=== PATIENT | male | born 1955 | race Caucasian/White ===

== ENCOUNTER 2017-10-15 13:50 | Observation (INO) | payer MEDICARE, SELFPAY | END 2017-10-16 13:35 | PROVIDERS: Admitting Provider Emergency Medicine; Emergency Provider Emergency Medicine; Family Provider Emergency Medicine; Visit Provider Emergency Medicine | DX: N39.0 Urinary tract infection, site not specified (principal); S01.412A Laceration without foreign body of left cheek and temporomandibular area, initial encounter; W05.0XXA Fall from non-moving wheelchair, initial encounter; Y92.129 Unspecified place in nursing home as the place of occurrence of the external cause; I10 Essential (primary) hypertension; G82.20 Paraplegia, unspecified; L89.159 Pressure ulcer of sacral region, unspecified stage | CPT/HCPCS: 12011; 36415; 70450; 74175; 80053; 81001; 82550; 82553; 82565; 83605; 84484; 84520; 85025; 87040; 87086; 87088; 87186; 93005; 94760; 96365; 96367; 99285; G0378; J1956; Q9967 ==

== ENCOUNTER → 2018-01-02 19:36 | Outpatient (REF) | payer MEDICARE, SELFPAY ==
[2018-01-02 19:45] LABS: Microscopic, Urine URINE MICROSCOPIC (MICROSCOPIC)
[2018-01-02 20:09] LABS: Appearance,Urine CLOUDY (Clear); Bilirubin,Urine Negative (Negative); Blood, Urine 3+ (Negative); Color,Urine YELLOW (Yellow); Glucose,Urine (UA) Negative (Negative); Ketones,Urine Negative (Negative); Leukocyte Esterase,Urine TRACE (Negative); Nitrate,Urine POSITIVE (Negative); PH,Urine 5.5 (5.0-8.5); Protein,Urine 3+ (Negative); Specific Gravity, Urine >= 1.030 (1.005-1.030)
[2018-01-02 20:14] LABS: RBC,Urine 50-100 #/hpf (0-3); WBC,Urine 20-50 #/hpf (0-3)
== END ==
LOC: LAB 19:36
PROVIDERS: Visit Provider Emergency Medicine
DX: R35.0 Frequency of micturition (principal)
CPT/HCPCS: 81001; 87086

== ENCOUNTER → 2018-02-04 12:16 | Outpatient (REF) | payer MEDICARE, SELFPAY | LOC: LAB 12:16 | PROVIDERS: Visit Provider Emergency Medicine | DX: L89.159 Pressure ulcer of sacral region, unspecified stage (principal) | CPT/HCPCS: 87070; 87077; 87186; 87205 ==

== ENCOUNTER 2019-08-07 18:54 | Observation (INO) ==
[2019-08-07 20:14] LABS: Basophils # 0.1 K/mm3 (0-0.2); Basophils % 1.2 % (0.1-2.0); Eosinophils # 0.3 K/mm3 (0.0-0.4); Eosinophils % 3.7 % (0.1-12.0); Hematocrit 41.6 % (42.0-52.0); Hemoglobin 12.6 g/dL (14.1-18.0); Lymphocytes # 2.2 K/mm3 (0.7-4.5); Lymphocytes % 23.1 % (10-50); Mean Corpuscular HGB Conc 30.4 g/dL (31.8-35.4); Mean Corpuscular Volume 83.4 fl (80-94); Mean Platelet Volume 6.6 fl (7.4-10.4); Monocytes # 0.8 K/mm3 (0.1-1.0); Monocytes % 8.1 % (1.7-9.3); Neutrophils # 5.9 K/mm3 (1.8-7.8); Neutrophils % 63.9 % (37.0-80.0); Platelet Count 419 K/mm3 (142-424); Red Blood Count 4.99 M/mm3 (4.60-6.20); Red Cell Distribution Width 15.9 % (11.5-17.5); White Blood Count 9.3 K/mm3 (4.8-10.8)
[2019-08-07 20:24] LABS: Albumin Level 2.8 gm/dL (3.4-5.0); Albumin/Globulin Ratio 0.7 (1.1-1.8); Anion Gap 10.8 mEq/L (5-15); Bilirubin,Total 0.4 mg/dL (0.2-1.0); C-Reactive Protein 0.9 mg/dL (0.0-0.9); Calcium 8.3 mg/dL (8.5-10.1); Globulin 4.1 gm/dl (1.3-3.2); Total Protein,Serum 6.9 gm/dL (6.4-8.2)
[2019-08-07 20:41] LABS: Erythrocyte Sedimentation Rate 24 mm/hr (0-20)
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
[2019-08-08 06:59] LABS: Basophils # 0.1 K/mm3 (0-0.2); Basophils % 1.2 % (0.1-2.0); Eosinophils # 0.4 K/mm3 (0.0-0.4); Eosinophils % 4.5 % (0.1-12.0); Hematocrit 40.5 % (42.0-52.0); Hemoglobin 12.1 g/dL (14.1-18.0); Lymphocytes # 2.1 K/mm3 (0.7-4.5); Lymphocytes % 26.8 % (10-50); Mean Corpuscular HGB Conc 29.8 g/dL (31.8-35.4); Mean Corpuscular Volume 84.2 fl (80-94); Mean Platelet Volume 6.5 fl (7.4-10.4); Monocytes # 0.8 K/mm3 (0.1-1.0); Monocytes % 9.8 % (1.7-9.3); Neutrophils # 4.5 K/mm3 (1.8-7.8); Neutrophils % 57.7 % (37.0-80.0); Platelet Count 376 K/mm3 (142-424); Red Blood Count 4.81 M/mm3 (4.60-6.20); White Blood Count 7.9 K/mm3 (4.8-10.8)
[2019-08-08 07:04] LABS: Calcium 8.3 mg/dL (8.5-10.1)
--- NOTE | 2019-08-08 07:36 | Pharmacy Consult Notes ---
[facility] Pharmacy VTE Monitoring - Patient Demographics Admission date: 08/07/19 Report Date: 08/08/19 Time: 07:36 Allergies/Adverse Reactions: Patient Allergies hydroxyzine Allergy (Verified 08/07/19 23:43) nylon Allergy (Verified 08/07/19 23:43) Height: 1.85 m Weight: 88.3 kg Patient Problems: Current Active Problems E coli bacteremia (Acute) - VTE Risk Labs: VTE Related Lab Results Hgb 12.1 g/dL (14.1-18.0) L 08/08/19 06:00 Hct 40.5 % (42.0-52.0) L 08/08/19 06:00 Plt Count 376 K/mm3 (142-424) 08/08/19 06:00 BUN 10 mg/dL (7-18) 08/08/19 06:00 Creatinine 0.64 mg/dL (0.70-1.30) L 08/08/19 06:00 Estimated Creat Clear 96 mL/min (50-200) 08/08/19 06:00 Was VTE Risk Assessment Performed: Yes VTE Score: 6 VTE Risk Level: Moderate Risk - Prophylaxis VTE Prophylaxis Ordered?: Yes Types of VTE Prophylaxis: TEDS Knee High Location of Applied Device: Bilateral Lower Extremeties - VTE Diagnosis Confirmed Treatment or plan recommended: Continue Current Treatment
--- NOTE | 2019-08-08 10:27 | History & Physical Report ---
*Admission Date: 08/07/19 *Chief complaint: positive blood culture *History of present illness: this wm from [facility] had ed eval for possible sepsis - pt has hx of pschy issues and recent eval [facility] - pt with eval in the ed and had positive ecoli blood culture - - hx of uti [facility] History I have reviewed the patient's past medical history: Yes Medical History: Reports:: Aneurysm (AAA), Dementia, Depression, Heart Murmur, Hyperlipidemia, Hypertension Denies:: Cancer, Diabetes Mellitus Type 1, Diabetes Mellitus Type 2 *Have you ever received a pneumonia vaccine?: Yes (07-16-17) *Have you received a flu vaccine this season?: Yes (08/04/19) Other Medical History: Reports: Anemia, Arthritis Laterality Cases: Left: Other Other Surgeries: Yes: Colonoscopy (9 years ago), Other (tracheostomy, pinning of left femur and foot) Amputation: No Fractures: No - *Social History Smoking Status: Unknown if ever smoked Alcohol Intake: never Substance Use Type: denies use *Occupational Status:: disabled Housing: shelter *Travel in the last 8 weeks: None - Psychiatric History Pschychiatric History:: Reports:: Depression Family Hx:: Unable to obtain Review of Systems - Review of Systems Review of systems:: pertinent systems reviewed and negative unless documented below - Constitutional Denies chills, Denies fever(s) - Eyes Denies change in vision - ENT Denies sore throat - *Cardiovascular Denies chest pain at rest - *Respiratory Denies cough - *Gastrointestinal Denies abdominal pain - *Genitourinary Denies blood in urine - *Musculoskeletal Denies joint pain - Integumentary/Breasts Denies rash - *Neurologic Denies seizure-like activity - Psychiatric Reports behavioral changes Meds Home Medications Medication Instructions Recorded Confirmed Type Atorvastatin Calcium [Atorvastatin 20 mg PO HS 04/05/18 08/08/19 History 20mg Tab] Carbidopa/Levodopa [Sinemet 25-100 1 each PO TID 04/05/18 08/07/19 History mg Tablet] Pantoprazole Sodium [Protonix 40mg 40 mg PO DAILY 09/03/18 08/07/19 History tablet] Polyethylene Glycol 3350 [Miralax 17 gm PO DAILY 09/03/18 08/07/19 History 17gm Packet] Tamsulosin HCl [Flomax 0.4mg 0.4 mg PO HS 09/03/18 08/07/19 History capsule] Haloperidol [Haldol 5mg tablet] 10 mg PO TID 03/02/19 08/07/19 History Benztropine Mesylate [Cogentin 1mg 1.5 mg PO BID 05/21/19 08/08/19 History tablet] LORazepam [Ativan 0.5mg 0.5 mg PO BID 05/21/19 08/07/19 History tablet] Lactulose [Lactulose 20gm/30ml 20 gm PO DAILY 05/21/19 08/07/19 History Oral Soln] Oxycodone HCl [Oxycodone (IR) 5mg 5 mg PO QID 05/21/19 08/07/19 History Cap] Bisacodyl [Correctol] 10 mg PO BID 08/04/19 08/07/19 History OXcarbazepine [Trileptal 300mg 600 mg PO BID 08/07/19 08/07/19 History tablet] Ascorbic Acid [Vitamin C 500mg 500 mg PO DAILY 08/08/19 08/08/19 History tablet] Cyclobenzaprine HCl 5 mg PO TID 08/08/19 08/08/19 History [Cyclobenzaprine 5mg Tab] Ergocalciferol (Vitamin D2) 50,000 unit PO FR 08/08/19 08/08/19 History [Vitamin D2] M-Vit,Tx,Iron,Mins/Calc/Folic 1 each PO DAILY 08/08/19 08/08/19 History [Therapeutic M Tablet] OLANZapine [Olanzapine] 5 mg PO DAILY 08/08/19 08/08/19 History Potassium Chloride [Micro-K 10mEq 20 meq PO TID 08/08/19 08/08/19 History cap] Simethicone [Gas-X] 125 mg PO BID 08/08/19 08/08/19 History Zinc Sulfate [Zinc Sulfate 220mg 220 mg PO DAILY 08/08/19 08/08/19 History capsule] fentaNYL [fentaNYL 75mcg Patch] 75 mcg TD Q72H 08/08/19 08/08/19 History levETIRAcetam [Keppra] 500 mg PO BID 08/08/19 08/08/19 History Allergies Allergy/AdvReac Type Severity Reaction Status Date / Time hydroxyzine Allergy Verified 08/07/19 23:43 nylon Allergy Verified 08/07/19 23:43 Exam Vital signs and Labs for Last 24 Hours: Temp Pulse Resp BP Pulse Ox 98.0 F 110 H 20 120/78 96 08/08/19 10:02 08/08/19 10:02 08/08/19 10:02 08/08/19 10:02 08/08/19 10:02 Laboratory Results - last 24 hr 08/07/19 19:30: WBC 9.3, RBC 4.99, Hgb 12.6 L, Hct 41.6 L, MCV 83.4, MCH 25.4 L, MCHC 30.4 L, RDW 15.9, Plt Count 419, MPV 6.6 L, Neut % (Auto) 63.9, Lymph % (Auto) 23.1, [place] % (Auto) 8.1, Eos % (Auto) 3.7, Baso % (Auto) 1.2, Neut # (Auto) 5.9, Lymph # (Auto) 2.2, [place] # (Auto) 0.8, Eos # (Auto) 0.3, Baso # (Auto) 0.1, ESR 24 H 08/07/19 19:30: Sodium 138, Potassium 3.8, Chloride 104, Carbon Dioxide 27, Anion Gap 10.8, BUN 11 D, Creatinine 0.66 L D, Estimated Creat Clear 108, Estimated GFR 122, Est GFR ( Amer) 148 D, Glucose 162 H, Calcium 8.3 L, Total Bilirubin 0.4, AST 13 L, ALT 7 L D, Alkaline Phosphatase 128 H, C-Reactive Protein 0.9 D, Total Protein 6.9, Albumin 2.8 L, Globulin 4.1 H, Albumin/Globulin Ratio 0.7 L 08/07/19 19:30: Lactate 1.4 08/08/19 02:30: POC Glucose 82 08/08/19 06:00: WBC 7.9, RBC 4.81, Hgb 12.1 L, Hct 40.5 L, MCV 84.2, MCH 25.1 L, MCHC 29.8 L, RDW 16.0, Plt Count 376, MPV 6.5 L, Neut % (Auto) 57.7, Lymph % (Auto) 26.8, [place] % (Auto) 9.8 H, Eos % (Auto) 4.5, Baso % (Auto) 1.2, Neut # (Auto) 4.5, Lymph # (Auto) 2.1, [place] # (Auto) 0.8, Eos # (Auto) 0.4, Baso # (Auto) 0.1 08/08/19 06:00: Sodium 142, Potassium 4.0, Chloride 107, Carbon Dioxide 27, Anion Gap 12.0, BUN 10, Creatinine 0.64 L, Estimated Creat Clear 96, Estimated GFR 127, Est GFR ( Amer) 153, Glucose 79 D, Calcium 8.3 L, Magnesium 2.1 I & O for Last 24 hours: Intake & Output 08/05/19 08/06/19 08/07/19 08/08/19 11:59 11:59 11:59 11:59 Intake Total 430 / 430 Balance 430 / 430 Weight 194 lb 10.691 oz - Constitutional no acute distress - *Routine HEENT Exam Head: Present: normocephalic Eye: Present: EOMI, PERRL ENT: Absent: mucous membranes dry - *Routine Neck Exam Present: supple - *Routine Respiratory Exam Present: CTA bilaterally - *Routine Cardiovascular Exam Present: RRR, murmur. Absent: rubs - *Routine Abdominal Exam Present: soft - *Routine Extremities Exam Present: full ROM - *Routine Skin Exam Present: intact - *Routine Neurological Exam Present: alert, oriented X3, CN II-XII intact - Routine Psychiatric Exam Present: agitated. Absent: good insight, good judgment Assessment and Plan (1) E coli bacteremia Current visit: Yes Status: Acute Category: Medical Code(s): R78.81 - Bacteremia (2) Parkinson disease Current visit: Yes Status: Acute Category: Medical Code(s): G20 - Parkinson's disease (3) Acute psychosis Current visit: No Status: Acute Category: Medical Code(s): F23 - Brief psychotic disorder
[2019-08-09 08:54] LABS: Basophils # 0.1 K/mm3 (0-0.2); Basophils % 1.7 % (0.1-2.0); Eosinophils # 0.4 K/mm3 (0.0-0.4); Eosinophils % 5.7 % (0.1-12.0); Hematocrit 44.9 % (42.0-52.0); Hemoglobin 13.6 g/dL (14.1-18.0); Lymphocytes # 1.8 K/mm3 (0.7-4.5); Lymphocytes % 24.6 % (10-50); Mean Corpuscular HGB Conc 30.2 g/dL (31.8-35.4); Mean Corpuscular Volume 85.1 fl (80-94); Monocytes # 0.4 K/mm3 (0.1-1.0); Monocytes % 6.1 % (1.7-9.3); Neutrophils # 4.4 K/mm3 (1.8-7.8); Neutrophils % 61.8 % (37.0-80.0); Platelet Count 375 K/mm3 (142-424); Red Blood Count 5.27 M/mm3 (4.60-6.20); White Blood Count 7.1 K/mm3 (4.8-10.8)
--- NOTE | 2019-08-09 09:08 | Progress Note ---
Internal Medicine - PN: Subj *Date: 08/09/19 *Time: 09:08 Interval history: 64-year-old male patient resting quietly in bed, denies any pain or needs at this time. Staff at bedside Exam Vital signs and Labs for Last 24 Hours: Temp Pulse Resp BP Pulse Ox 98.0 F 98 H 20 144/90 H 96 08/09/19 08:51 08/09/19 08:51 08/09/19 08:51 08/09/19 08:51 08/09/19 08:51 I & O for Last 24 hours: Intake & Output 08/06/19 08/07/19 08/08/19 08/09/19 23:59 23:59 23:59 23:59 Intake Total 100 / 100 1089 / 1089 993 / 993 Balance 100 / 100 1089 / 1089 993 / 993 Weight 192 lb 3 oz 194 lb 10.691 oz 194 lb 5 oz - Constitutional no acute distress - *Routine HEENT Exam Head: Present: normocephalic, atraumatic Eye: Present: EOMI, PERRL, normal accommodation. Absent: periorbital swelling, periorbital tenderness ENT: Present: mucous membranes moist - *Routine Neck Exam Present: supple, full ROM, trachea midline. Absent: tracheal deviation - *Routine Respiratory Exam Present: CTA bilaterally. Absent: accessory muscle use - *Routine Cardiovascular Exam Present: murmur - *Routine Abdominal Exam Present: soft, normoactive bowel sounds. Absent: tenderness, firm - *Routine Extremities Exam Present: pulses intact. Absent: tenderness - Routine Back/Spine/Pelvis Exam Back/Spine: Present: full ROM. Absent: CVA tenderness - *Routine Skin Exam Present: intact. Absent: cyanosis, jaundice - *Routine Neurological Exam Present: alert, CN II-XII intact. Absent: pronator drift - Routine Psychiatric Exam Present: normal affect. Absent: visual hallucinations Assessment and Plan (1) E coli bacteremia Current visit: Yes Status: Acute Category: Medical Code(s): R78.81 - Bacteremia (2) Parkinson disease Current visit: Yes Status: Acute Category: Medical Code(s): G20 - Parkinson's disease (3) Acute psychosis Current visit: No Status: Acute Category: Medical Code(s): F23 - Brief psychotic disorder - Assessment and plan all Dx Assessment and Plan for all problems:: Rounded with Dr. Hua, all orders per Dr. Hua 1. Awaiting blood cultures 2. We will consult urology for sterile urine specimen 3. Draw End Hand currently working on placement for discharge planning
[2019-08-09 09:19] LABS: Anion Gap 10.6 mEq/L (5-15); Calcium 8.4 mg/dL (8.5-10.1)
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
--- NOTE | 2019-08-09 18:55 | Consult Report ---
*Admission Date: 08/07/19 *Reason for consult:: Catheter placement *History of present illness: I last saw this patient in follow-up of catheter removal on April 05 of this year. He had prolonged catheter placement at the senior care. Further history was not available. At follow-up he was voiding well. He seemed to be continent and overall doing quite well. He had had some visitation with his sister outside of the [facility] nursing facility. He had no urinary sections. He presented here with increased mental status changes. He apparently had positive cultures. They have been unable to place a catheter. Apparently they attempted an in and out catheterization in the emergency room. Patient has been quite combative. He actually is in restraints at this time. I was consulted for catheter placement. Apparently he has been producing urine in his depends. Creatinine upon presentation was normal. The penis was prepped and draped in standard manner. I first attempted to pass an 18 [place] coud catheter which met resistance at his proximal pendulous urethra. I then attempted a 16 [place] straight catheter without success and after moderate pressure aborted that. I then was easily able to pass a 0.035 zip wire which felt to go into the bladder with minimal resistance. I then fashioned a 16 [place] catheter which would not pass into the bladder. I was able to use a 12 [place] catheter to dilate slightly he has first area of resistance. He seemed to have a secondary resistance about 2 cm proximal to this level. I then used an 1113 ureteral access sheath to the very cautiously passed over the wire. This would not seem to easily make the band into the bladder and therefore this was aborted. I then again attempted the 12 [place] catheter which would not go into the bladder and I elected to abort further instrumentation. If he requires catheterization and then he will need to undergo general anesthesia with probable incision of urethral stricture or dilation under anesth esia. Review of Systems - *Neurologic Reports behavioral changes, Denies seizure-like activity [facility] History Medical History: Reports:: Aneurysm (AAA), Dementia, Depression, Heart Murmur, Hyperlipidemia, Hypertension Denies:: Cancer, Diabetes Mellitus Type 1, Diabetes Mellitus Type 2 *Have you ever received a pneumonia vaccine?: Yes (07-16-17) *Have you received a flu vaccine this season?: Yes (08/04/19) Other Medical History: Reports: Anemia, Arthritis Laterality Cases: Left: Other Other Surgeries: Yes: Colonoscopy (9 years ago), Other (tracheostomy, pinning of left femur and foot) Amputation: No Fractures: No - *Social History Smoking Status: Unknown if ever smoked Alcohol Intake: never Substance Use Type: denies use *Occupational Status:: disabled Housing: senior care *Travel in the last 8 weeks: None - Psychiatric History Pschychiatric History:: Reports:: Depression Family Hx:: Unable to obtain Meds Home Medications Medication Instructions Recorded Confirmed Type Atorvastatin Calcium [Atorvastatin 20 mg PO HS 04/05/18 08/08/19 History 20mg Tab] Carbidopa/Levodopa [Sinemet 25-100 1 each PO TID 04/05/18 08/07/19 History mg Tablet] Pantoprazole Sodium [Protonix 40mg 40 mg PO DAILY 09/03/18 08/07/19 History tablet] Polyethylene Glycol 3350 [Miralax 17 gm PO DAILY 09/03/18 08/07/19 History 17gm Packet] Tamsulosin HCl [Flomax 0.4mg 0.4 mg PO HS 09/03/18 08/07/19 History capsule] Haloperidol [Haldol 5mg tablet] 10 mg PO TID 03/02/19 08/07/19 History Benztropine Mesylate [Cogentin 1mg 1.5 mg PO BID 05/21/19 08/08/19 History tablet] LORazepam [Ativan 0.5mg 0.5 mg PO BID 05/21/19 08/07/19 History tablet] Lactulose [Lactulose 20gm/30ml 20 gm PO DAILY 05/21/19 08/07/19 History Oral Soln] Oxycodone HCl [Oxycodone (IR) 5mg 5 mg PO QID 05/21/19 08/07/19 History Cap] Bisacodyl [Correctol] 10 mg PO BID 08/04/19 08/07/19 History OXcarbazepine [Trileptal 300mg 600 mg PO BID 08/07/19 08/07/19 History tablet] Ascorbic Acid [Vitamin C 500mg 500 mg PO DAILY 08/08/19 08/08/19 History tablet] Cyclobenzaprine HCl 5 mg PO TID 08/08/19 08/08/19 History [Cyclobenzaprine 5mg Tab] Ergocalciferol (Vitamin D2) 50,000 unit PO FR 08/08/19 08/08/19 History [Vitamin D2] M-Vit,Tx,Iron,Mins/Calc/Folic 1 each PO DAILY 08/08/19 08/08/19 History [Therapeutic M Tablet] OLANZapine [Olanzapine] 5 mg PO DAILY 08/08/19 08/08/19 History Potassium Chloride [Micro-K 10mEq 20 meq PO TID 08/08/19 08/08/19 History cap] Simethicone [Gas-X] 125 mg PO BID 08/08/19 08/08/19 History Zinc Sulfate [Zinc Sulfate 220mg 220 mg PO DAILY 08/08/19 08/08/19 History capsule] fentaNYL [fentaNYL 75mcg Patch] 75 mcg TD Q72H 08/08/19 08/08/19 History levETIRAcetam [Keppra] 500 mg PO BID 08/08/19 08/08/19 History Allergies Allergy/AdvReac Type Severity Reaction Status Date / Time hydroxyzine Allergy Verified 08/07/19 23:43 nylon Allergy Verified 08/07/19 23:43 Exam Vital signs and Labs for Last 24 Hours: Temp Pulse Resp BP Pulse Ox 98.0 F 121 H 20 128/96 H 96 08/09/19 16:00 08/09/19 16:00 08/09/19 16:00 08/09/19 16:00 08/09/19 16:00 Laboratory Results - last 24 hr 08/09/19 08:45: WBC 7.1, RBC 5.27, Hgb 13.6 L, Hct 44.9, MCV 85.1, MCH 25.7 L, MCHC 30.2 L, RDW 16.0, Plt Count 375, MPV 7.0 L, Neut % (Auto) 61.8, Lymph % (Auto) 24.6, [place] % (Auto) 6.1, Eos % (Auto) 5.7, Baso % (Auto) 1.7, Neut # (Auto) 4.4, Lymph # (Auto) 1.8, [place] # (Auto) 0.4, Eos # (Auto) 0.4, Baso # (Auto) 0.1 08/09/19 08:45: Sodium 142, Potassium 3.6, Chloride 105, Carbon Dioxide 30, A nion Gap 10.6, BUN 6 L D, Creatinine 0.74, Estimated Creat Clear 95, Estimated GFR 107, Est GFR ( Amer) 130, Glucose 130 H, Calcium 8.4 L I & O for Last 24 hours: Intake & Output 08/06/19 08/07/19 08/08/19 08/09/19 23:59 23:59 23:59 23:59 Intake Total 100 / 100 1089 / 1089 1353 / 1353 Balance 100 / 100 1089 / 1089 1353 / 1353 Weight 87.175 kg 88.3 kg 88.139 kg Results - Labs 08/09/19 08:45 08/09/19 08:45 Laboratory Results - last 24 hr 08/09/19 08:45: WBC 7.1, RBC 5.27, Hgb 13.6 L, Hct 44.9, MCV 85.1, MCH 25.7 L, MCHC 30.2 L, RDW 16.0, Plt Count 375, MPV 7.0 L, Neut % (Auto) 61.8, Lymph % (Auto) 24.6, [place] % (Auto) 6.1, Eos % (Auto) 5.7, Baso % (Auto) 1.7, Neut # (Auto) 4.4, Lymph # (Auto) 1.8, [place] # (Auto) 0.4, Eos # (Auto) 0.4, Baso # (Auto) 0.1 08/09/19 08:45: Sodium 142, Potassium 3.6, Chloride 105, Carbon Dioxide 30, Anion Gap 10.6, BUN 6 L D, Creatinine 0.74, Estimated Creat Clear 95, Estimated GFR 107, Est GFR ( Amer) 130, Glucose 130 H, Calcium 8.4 L Assessment and Plan (1) E coli bacteremia Current visit: Yes Status: Acute Category: Medical Code(s): R78.81 - Bacteremia (2) Parkinson disease Current visit: Yes Status: Acute Category: Medical Code(s): G20 - Parkinson's disease (3) Acute psychosis Current visit: No Status: Acute Category: Medical Code(s): F23 - Brief psy chotic disorder
[2019-08-10 07:29] LABS: Anion Gap 8.6 mEq/L (5-15); Calcium 8.3 mg/dL (8.5-10.1)
[2019-08-10 07:57] LABS: Basophils # 0.1 K/mm3 (0-0.2); Basophils % 1.3 % (0.1-2.0); Eosinophils # 0.4 K/mm3 (0.0-0.4); Hematocrit 56.7 % (42.0-52.0); Lymphocytes # 2.6 K/mm3 (0.7-4.5); Lymphocytes % 29.9 % (10-50); Mean Corpuscular HGB Conc 29.9 g/dL (31.8-35.4); Mean Corpuscular Volume 85.2 fl (80-94); Monocytes # 0.9 K/mm3 (0.1-1.0); Monocytes % 9.8 % (1.7-9.3); Neutrophils # 4.7 K/mm3 (1.8-7.8); Platelet Count 197 K/mm3 (142-424); Red Blood Count 6.66 M/mm3 (4.60-6.20); Red Cell Distribution Width 16.1 % (11.5-17.5); White Blood Count 8.7 K/mm3 (4.8-10.8)
[2019-08-10 12:30] LABS: Hemoglobin 16.9 g/dL (14.1-18.0)
--- NOTE | 2019-08-10 14:17 | Progress Note ---
Internal Medicine - PN: Subj *Date: 08/11/19 *Time: 10:05 Interval history: more lethargic this am - seen by urology and pschy - new blood cultures neg Exam Vital signs and Labs for Last 24 Hours: Temp Pulse Resp BP Pulse Ox 97.2 F L 85 18 138/99 H 98 08/10/19 08:00 08/10/19 08:00 08/10/19 08:00 08/10/19 08:00 08/10/19 08:00 Laboratory Results - last 24 hr 08/10/19 06:55: WBC 8.7, RBC 6.66 H D, Hgb 16.9 D, Hct 56.7 H, MCV 85.2, MCH 25.5 L, MCHC 29.9 L, RDW 16.1, Plt Count 197 D, MPV 7.0 L, Neut % (Auto) 54.0, Lymph % (Auto) 29.9, [place] % (Auto) 9.8 H, Eos % (Auto) 5.0, Baso % (Auto) 1.3, Neut # (Auto) 4.7, Lymph # (Auto) 2.6, [place] # (Auto) 0.9, Eos # (Auto) 0.4, Baso # (Auto) 0.1 08/10/19 06:55: Sodium 143, Potassium 3.6, Chloride 107, Carbon Dioxide 31, Anion Gap 8.6, BUN 7, Creatinine 0.62 L, Estimated Creat Clear 94, Estimated GFR 131, Est GFR ( Amer) 159 D, Glucose 85 D, Calcium 8.3 L I & O for Last 24 hours: Intake & Output 08/08/19 08/09/19 08/10/19 08/11/19 11:59 11:59 11:59 11:59 Intake Total 430 / 430 1752 / 1752 360 / 360 0 / 0 Balance 430 / 430 1752 / 1752 360 / 360 0 / 0 Weight 194 lb 10.691 oz 194 lb 5 oz 192 lb 0.009 oz Microbiology Reports for the Last 24 Hours: Microbiology 08/07/19 19:30 Blood Blood Culture - Preliminary NO GROWTH AFTER 48 HOURS 08/07/19 19:30 Blood Blood Culture - Preliminary NO GROWTH AFTER 48 HOURS - Constitutional no acute distress - *Routine HEENT Exam Head: Present: normocephalic Eye: Present: EOMI, PERRL ENT: Present: mucous membranes dry - *Routine Neck Exam Present: supple - *Routine Respiratory Exam Present: CTA bilaterally - *Routine Cardiovascular Exam Present: RRR, murmur - *Routine Abdominal Exam Present: soft - *Routine Extremities Exam Absent: calf tenderness - *Routine Skin Exam Present: intact - *Routine Neurological Exam Present: alert, oriented X3, CN II-XII intact - Routine Psychiatric Exam Present: normal affect Assessment and Plan (1) E coli bacteremia Current visit: Yes Status: Acute Category: Medical Code(s): R78.81 - Bacteremia (2) Parkinson disease Current visit: Yes Status: Acute Category: Medical Code(s): G20 - Parkinson's disease (3) Acute psychosis Current visit: No Status: Acute Category: Medical Code(s): F23 - Brief psychotic disorder
[2019-08-11 08:09] LABS: Basophils # 0.1 K/mm3 (0-0.2); Eosinophils # 0.4 K/mm3 (0.0-0.4); Eosinophils % 5.1 % (0.1-12.0); Hematocrit 43.7 % (42.0-52.0); Hemoglobin 13.1 g/dL (14.1-18.0); Lymphocytes % 23.8 % (10-50); Mean Corpuscular HGB Conc 29.9 g/dL (31.8-35.4); Mean Corpuscular Volume 84.1 fl (80-94); Mean Platelet Volume 6.4 fl (7.4-10.4); Monocytes # 0.6 K/mm3 (0.1-1.0); Monocytes % 6.8 % (1.7-9.3); Neutrophils # 5.3 K/mm3 (1.8-7.8); Neutrophils % 63.3 % (37.0-80.0); Platelet Count 338 K/mm3 (142-424); Red Blood Count 5.19 M/mm3 (4.60-6.20); Red Cell Distribution Width 16.1 % (11.5-17.5); White Blood Count 8.4 K/mm3 (4.8-10.8)
[2019-08-11 08:40] LABS: Anion Gap 11.9 mEq/L (5-15); Calcium 8.4 mg/dL (8.5-10.1)
--- NOTE | 2019-08-11 09:24 | Progress Note ---
Internal Medicine - PN: Subj *Date: 08/11/19 *Time: 09:21 Exam Vital signs and Labs for Last 24 Hours: Temp Pulse Resp BP Pulse Ox 97.7 F 90 20 125/91 H 95 08/11/19 04:00 08/11/19 04:00 08/11/19 04:00 08/11/19 04:00 08/11/19 04:00 Laboratory Results - last 24 hr 08/10/19 06:55: Hgb 16.9 D 08/11/19 08:00: WBC 8.4, RBC 5.19, Hgb 13.1 L, Hct 43.7, MCV 84.1, MCH 25.2 L, MCHC 29.9 L, RDW 16.1, Plt Count 338 D, MPV 6.4 L, Neut % (Auto) 63.3, Lymph % (Auto) 23.8, [place] % (Auto) 6.8, Eos % (Auto) 5.1, Baso % (Auto) 1.0, Neut # (Auto) 5.3, Lymph # (Auto) 2.0, [place] # (Auto) 0.6, Eos # (Auto) 0.4, Baso # (Auto) 0.1 08/11/19 08:00: Sodium 143, Potassium 3.9, Chloride 108 H, Carbon Dioxide 27, Anion Gap 11.9, BUN 8, Creatinine 0.72, Estimated Creat Clear 96, Estimated GFR 111, Est GFR ( Amer) 134, Glucose 107 H, Calcium 8.4 L I & O for Last 24 hours: Intake & Output 08/08/19 08/09/19 08/10/19 08/11/19 23:59 23:59 23:59 23:59 Intake Total 1089 / 1089 1353 / 1353 240 / 240 Balance 1089 / 1089 1353 / 1353 240 / 240 Weight 88.3 kg 88.139 kg 87.09 kg 88.479 kg Assessment and Plan (1) E coli bacteremia Current visit: Yes Status: Acute Category: Medical Code(s): R78.81 - Bacteremia (2) Parkinson disease Current visit: Yes Status: Acute Category: Medical Code(s): G20 - Parkinson's disease (3) Acute psychosis Current visit: No Status: Acute Category: Medical Code(s): F23 - Brief psychotic disorder The patient's infection will respond to the chosen ABx?: Yes Is the patient receiving the right drug, dose, and route?: Yes Could a more targeted ABx be ordered?: No (ESBL +, INVANZ SENSITIVE)
--- NOTE | 2019-08-11 10:02 | Discharge Summary ---
General - General Admission date:: 08/07/19 Discharge date: 08/11/19 HPI HPI: this wm from [facility] had ed eval for possible sepsis - pt has hx of pschy issues and [facility] pt with eval in the ed and had positive ecoli blood culture - - hx of uti Hospital Course Hospital Course: ESBL positive blood cultures Behavioral issues consulted behavioral health see note-recommended medication changes Patricia inserted by Dr. Estrada see his note Patient will need 10 more days of IM Invanz for his bacteremia Patient will be discharged back to [facility] to continue his long-term care placement Patient today is sitting up in bed talking with his sister drinking Pepsi. Patient is very calm and cooperative with care. Objective Vital signs: Temp Pulse Resp BP Pulse Ox 97.7 F 90 20 125/91 H 95 08/11/19 04:00 08/11/19 04:00 08/11/19 04:00 08/11/19 04:00 08/11/19 04:00 no acute distress - *Routine Neck Exam Comments: Trach opening - *Routine Respiratory Exam Present: CTA bilaterally - *Routine Cardiovascular Exam Present: murmur - *Routine Abdominal Exam Present: soft, normoactive bowel sounds. Absent: tenderness - *Routine Extremities Exam Present: full ROM. Absent: edema - *Routine Skin Exam Present: intact, wounds - *Routine Neurological Exam Present: alert, oriented X3 - Routine Psychiatric Exam Present: normal affect, normal thought process Results Labs on day of discharge: Labs from last 24 hours 08/11/19 08/11/19 08/10/19 08:00 08:00 06:55 WBC 8.4 RBC 5.19 Hgb 13.1 L 16.9 D Hct 43.7 MCV 84.1 MCH 25.2 L MCHC 29.9 L RDW 16.1 Plt Count 338 D MPV 6.4 L Neut % (Auto) 63.3 Lymph % (Auto) 23.8 [place] % (Auto) 6.8 Eos % (Auto) 5.1 Baso % (Auto) 1.0 Neut # (Auto) 5.3 Lymph # (Auto) 2.0 [place] # (Auto) 0.6 Eos # (Auto) 0.4 Baso # (Auto) 0.1 Sodium 143 Potassium 3.9 Chloride 108 H Carbon Dioxide 27 Anion Gap 11.9 BUN 8 Creatinine 0.72 Estimated Creat Clear 96 Estimated GFR 111 Est GFR ( Amer) 134 Glucose 107 H Calcium 8.4 L Preliminary micro results at discharge 08/07/19 19:30 Blood Culture - Preliminary Blood NO GROWTH AFTER 48 HOURS 08/07/19 19:30 Blood Culture - Preliminary Blood NO GROWTH AFTER 48 HOURS - Additional Comments Rounded with Dr. Hua all orders per Melita Patient and family discussed interest and moving from [facility] to [facility] for long-term care. Discussed that they would need to speak to the state guardian and make arrangements. DS: Diagnosis - Discharge Diagnosis (1) E coli bacteremia Status: Acute (2) Parkinson disease Status: Acute (3) Acute psychosis Status: Acute Discharge Plan - Patient Discharge Instructions ACTIVITY: Continue current activity DIET: continue same diet Patient Instructions: Blood Culture, DI for Escherichia Coli Infection, Escherichia coli Infection, DI for Multiple Drug-resistant Organism (MDRO) Infection, DI for Extended Spectrum Beta-Lactamase Infection, DI for Bacteremia--Child - Follow up Plan Follow up with: Michelle Waters APRN [Advanced Practice Nurse] - Disposition: Xfer [facility] Home Medications: Home Medications Medication Instructions Recorded Confirmed Type Atorvastatin Calcium [Atorvastatin 20 mg PO HS 04/05/18 08/08/19 History 20mg Tab] Carbidopa/Levodopa [Sinemet 25-100 1 each PO TID 04/05/18 08/07/19 History mg Tablet] Pantoprazole Sodium [Protonix 40mg 40 mg PO DAILY 09/03/18 08/07/19 History tablet] Polyethylene Glycol 3350 [Miralax 17 gm PO DAILY 09/03/18 08/07/19 History 17gm Packet] Tamsulosin HCl [Flomax 0.4mg 0.4 mg PO HS 09/03/18 08/07/19 History capsule] Haloperidol [Haldol 5mg tablet] 10 mg PO TID 03/02/19 08/07/19 History Benztropine Mesylate [Cogentin 1mg 1.5 mg PO BID 05/21/19 08/08/19 History tablet] LORazepam [Ativan 0.5mg 0.5 mg PO BID 05/21/19 08/07/19 History tablet] Lactulose [Lactulose 20gm/30ml 20 gm PO DAILY 05/21/19 08/07/19 History Oral Soln] Oxycodone HCl [Oxycodone (IR) 5mg 5 mg PO QID 05/21/19 08/07/19 History Cap] Bisacodyl [Correctol] 10 mg PO BID 08/04/19 08/07/19 History OXcarbazepine [Trileptal 300mg 600 mg PO BID 08/07/19 08/07/19 History tablet] Ascorbic Acid [Vitamin C 500mg 500 mg PO DAILY 08/08/19 08/08/19 History tablet] Cyclobenzaprine HCl 5 mg PO TID 08/08/19 08/08/19 History [Cyclobenzaprine 5mg Tab] Ergocalciferol (Vitamin D2) 50,000 unit PO FR 08/08/19 08/08/19 History [Vitamin D2] M-Vit,Tx,Iron,Mins/Calc/Folic 1 each PO DAILY 08/08/19 08/08/19 History [Therapeutic M Tablet] OLANZapine [Olanzapine] 5 mg PO DAILY 08/08/19 08/08/19 History Potassium Chloride [Micro-K 10mEq 20 meq PO TID 08/08/19 08/08/19 History cap] Simethicone [Gas-X] 125 mg PO BID 08/08/19 08/08/19 History Zinc Sulfate [Zinc Sulfate 220mg 220 mg PO DAILY 08/08/19 08/08/19 History capsule] fentaNYL [fentaNYL 75mcg Patch] 75 mcg TD Q72H 08/08/19 08/08/19 History levETIRAcetam [Keppra] 500 mg PO BID 08/08/19 08/08/19 History Ertapenem Sodium [Invanz 1gm Vial] 1 gm IM Q24H 10 Days #10 vial 08/11/19 Rx OLANZapine [Zyprexa 10mg Vial] 10 mg IM Q8H 10 Days #30 vial 08/11/19 Rx OLANZapine [Zyprexa 5mg tablet] 10 mg PO TID 30 Days #90 tab 08/11/19 Rx Quetiapine Fumarate [Seroquel 25mg 50 mg PO BID 30 Days #120 tab 08/11/19 Rx tablet] Prescriptions/Medication Reconciliation: New OXcarbazepine [Trileptal 300mg tablet] 600 mg PO BID tablet Quetiapine Fumarate [Seroquel 25mg tablet] 50 mg PO BID 30 Days #120 tab OLANZapine [Zyprexa 10mg Vial] 10 mg IM Q8H 10 Days #30 vial OLANZapine [Zyprexa 5mg tablet] 10 mg PO TID 30 Days #90 tab Ertapenem Sodium [Invanz 1gm Vial] 1 gm IM Q24H 10 Days #10 vial Continued Carbidopa/Levodopa [Sinemet 25-100 mg Tablet] 1 each PO TID Atorvastatin Calcium [Atorvastatin 20mg Tab] 20 mg PO HS Tamsulosin HCl [Flomax 0.4mg capsule] 0.4 mg PO HS Polyethylene Glycol 3350 [Miralax 17gm Packet] 17 gm PO DAILY Lactulose [Lactulose 20gm/30ml Oral Soln] 20 gm PO DAILY Oxycodone HCl [Oxycodone (IR) 5mg Cap] 5 mg PO QID LORazepam [Ativan 0.5mg tablet] 0.5 mg PO BID Potassium Chloride [Micro-K 10mEq cap] 20 meq PO TID Cyclobenzaprine HCl [Cyclobenzaprine 5mg Tab] 5 mg PO TID Simethicone [Gas-X] 125 mg PO BID Zinc Sulfate [Zinc Sulfate 220mg capsule] 220 mg PO DAILY Ascorbic Acid [Vitamin C 500mg tablet] 500 mg PO DAILY OLANZapine [Olanzapine] 5 mg PO DAILY OXcarbazepine [Trileptal 300mg tablet] 600 mg PO BID fentaNYL [fentaNYL 75mcg Patch] 75 mcg TD Q72H levETIRAcetam [Keppra] 500 mg PO BID Pantoprazole Sodium [Protonix 40mg tablet] 40 mg PO DAILY Benztropine Mesylate [Cogentin 1mg tablet] 1.5 mg PO BID Bisacodyl [Correctol] 10 mg PO BID M-Vit,Tx,Iron,Mins/Calc/Folic [Therapeutic M Tablet] 1 each PO DAILY Ergocalciferol (Vitamin D2) [Vitamin D2] 50,000 unit PO FR Discontinued Haloperidol [Haldol 5mg tablet] 10 mg PO TID - Problem Reconciliation Problems Reviewed?: Yes
== END 2019-08-11 12:25 ==
LOC: ER 18:54 → 2ND 18:54
PROVIDERS: ADMIT Emergency Medicine; ATTEND Emergency Medicine
CPT/HCPCS: 36415; 80048; 80053; 82962; 83605; 83735; 85025; 85651; 86140; 87040; 96365; 99284; C1769; G0378; J1335; J1953

== ENCOUNTER → 2019-11-05 16:21 | Outpatient (CLI) | payer MEDICARE, SELFPAY ==
[2019-11-05 16:40] LABS: Basophils # 0.1 K/mm3 (0-0.2); Basophils % 0.5 % (0.1-2.0); Eosinophils # 0.2 K/mm3 (0.0-0.4); Eosinophils % 1.1 % (0.1-12.0); Hematocrit 40.2 % (42.0-52.0); Hemoglobin 13.1 g/dL (14.1-18.0); Lymphocytes # 0.8 K/mm3 (0.7-4.5); Lymphocytes % 4.2 % (10-50); Mean Corpuscular HGB Conc 32.5 g/dL (31.8-35.4); Mean Corpuscular Hemoglobin 26.4 pg (27.0-31.2); Mean Corpuscular Volume 81.2 fl (80-94); Mean Platelet Volume 7.8 fl (7.4-10.4); Monocytes # 0.8 K/mm3 (0.1-1.0); Monocytes % 4.6 % (1.7-9.3); Neutrophils # 16.4 K/mm3 (1.8-7.8); Neutrophils % 89.6 % (37.0-80.0); Platelet Count 323 K/mm3 (142-424); Red Blood Count 4.95 M/mm3 (4.60-6.20); Red Cell Distribution Width 15.3 % (11.5-17.5); White Blood Count 18.3 K/mm3 (4.8-10.8)
[2019-11-05 16:45] LABS: MANUAL DIFFERENTIAL MANUAL DIFFERENTIAL (MANUAL DIFF)
[2019-11-05 17:01] LABS: Lymphocytes % 9 % (10-50); Monocytes % 7 % (2-9); Neutrophils % 84 % (42-76); Platelet Estimate Normal; Total Cells Counted 100
[2019-11-05 17:02] LABS: Acanthocytes 1+; Hypochromasia 1+; Poikilocytosis 1+; Stomatocytes 1+
== END ==
PROVIDERS: Visit Provider Emergency Medicine
DX: D64.9 Anemia, unspecified (principal)
CPT/HCPCS: 85007; 85025

== ENCOUNTER 2020-01-07 16:05 | Inpatient (IN) ==
[2020-01-07 15:23] LABS: Basophils # 0.1 K/mm3 (0-0.2); Basophils % 0.3 % (0.1-2.0); Eosinophils # 0.2 K/mm3 (0.0-0.4); Eosinophils % 0.9 % (0.1-12.0); Hematocrit 44.6 % (42.0-52.0); Hemoglobin 13.6 g/dL (14.1-18.0); Lymphocytes # 0.7 K/mm3 (0.7-4.5); Lymphocytes % 3.1 % (10-50); Mean Corpuscular HGB Conc 30.5 g/dL (31.8-35.4); Mean Corpuscular Volume 81.6 fl (80-94); Mean Platelet Volume 6.9 fl (7.4-10.4); Monocytes # 0.9 K/mm3 (0.1-1.0); Monocytes % 4.1 % (1.7-9.3); Neutrophils # 21.3 K/mm3 (1.8-7.8); Neutrophils % 91.6 % (37.0-80.0); Platelet Count 488 K/mm3 (142-424); Red Blood Count 5.47 M/mm3 (4.60-6.20); Red Cell Distribution Width 15.1 % (11.5-17.5); White Blood Count 23.2 K/mm3 (4.8-10.8)
--- NOTE | 2020-01-07 15:30 | Emergency Department Note ---
ED Disposition Clinical Impression: Acute dyspnea, Hypoxemia Pneumonia Qualifiers: Pneumonia type: due to unspecified organism Laterality: bilateral Lung l ocation: lower lobe of lung Qualified Code(s): J18.9 - Pneumonia, unspecified organism Disposition: Admitted As Inpatient Condition on Discharge: Serious Time of Disposition: 19:40 - Critical Care Critical Care Time: Yes Attestation: On , the high probability of a clinically significant, sudden or life threatening deterioration of the following system(s) required my full and direct attention, intervention and personal management. The time I documented below is in addition to time spent performing reported procedures but includes the following listed in this critical care notation. Total Critical Care Time: 45 Vital system(s) involved:: Respiratory Failure, Shock (Septic) My critical care processes included: Assessment & monitoring of V/S, Initial and Re-exams, Data Review/Interpretation, Coordinating Care, Medication Orders and management, Documentation Medical Decision Making - Naeem Inquiry Pt receiving controlled substance: Yes Naeem was queried for this patient: No (care home patient) Risks and benefits of using a controlled substance: were not discussed with pt by me Vital Signs: 01/07/20 15:04 Pulse Rate [Radial] 138 H Respiratory Rate 18 Blood Pressure [Right Arm] 108/80 L Blood Pressure Mean [Right Arm] 89 Blood Pressure Source [Right Arm] Automatic Cuff Blood Pressure Position [Right Arm] Sitting 02 Sat by Pulse Oximetry 90 L Oxygen Delivery Method Nasal Cannula Oxygen Flow Rate (LPM) 4 - Lab Data Lab results reviewed: Yes: I reviewed the patient's lab results. Lab Results 01/07/20 15:00: WBC 23.2 H*, RBC 5.47, Hgb 13.6 L, Hct 44.6, MCV 81.6, MCH 24.9 L, MCHC 30.5 L, RDW 15.1, Plt Count 488 H, MPV 6.9 L, Neut % (Auto) 91.6 H, Lymph % (Auto) 3.1 L, [place] % (Auto) 4.1, Eos % (Auto) 0.9, Baso % (Auto) 0.3, Neut # (Auto) 21.3 H, Lymph # (Auto) 0.7, [place] # (Auto) 0.9, Eos # (Auto) 0.2, Baso # (Auto) 0.1, Total Counted 100, Neutrophils % (Manual) 91 H, Lymphocytes % (Manual) 5 L, Monocytes % (Manual) 4, Platelet Estimate Marked increase, Hypochromasia 2+ 01/07/20 15:00: Sodium 139, Potassium 4.5, Chloride 104, Carbon Dioxide 31 H, Anion Gap 8.5, BUN 16, Creatinine 0.80, Estimated Creat Clear 113, Estimated GFR 98, Est GFR ( Amer) 119, Glucose 181 H, Calcium 9.3, Total Bilirubin 0.9, AST 19, ALT 6 L, Alkaline Phosphatase 161 H, Troponin I < 0.01, Total Protein 7.4, Albumin 3.9, Globulin 3.5 H, Albumin/Globulin Ratio 1.1 01/07/20 15:00: Lactate 1.8 01/07/20 15:11: Specimen Source Left radial, O2 % 4lpm nc, ABG pH 7.47 H, ABG pCO2 33.9 L, ABG pO2 49.4 L, ABG HCO3 24.0, ABG Total CO2 25.0, ABG O2 Saturation 88 L, ABG Base Excess 0.2, Stan Test Patient unable 01/07/20 18:00: Troponin I < 0.01 Result diagrams: 01/07/20 15:00 01/07/20 15:00 Orders (Tests/Meds): ED MEDICATIONS Generic Name Dose Route Start Last Admin Trade Name Freq PRN Reason Stop Dose Admin Sodium Chloride 3 ml 01/07/20 15:18 Sodium Chloride 3% 15ml Neb 02/06/20 15:17 ONCE PRN INDUCE SPUTUM COLLECTION Discontinued Medications Generic Name Dose Route Start Last Admin Trade Name Freq PRN Reason Stop Dose Admin Ceftriaxone Sodium 1 gm/ 50 mls @ 100 mls/hr 01/07/20 16:51 01/07/20 17:28 Sodium Chloride IV 01/07/20 17:20 100 mls/hr ONCE STA Administration Protocol ORDERS Category Date Time Status XR chest portable Stat Exams 01/07/20 15:11 Taken Troponin I Q3H Lab 01/07/20 21:15 Ordered Blood Culture Stat Micro 01/07/20 15:00 Received Sputum Culture & Gram Stain Stat Micro 01/07/20 15:30 Results - CT Data CT Scan: Head Time Received: 19:[address] Reviewed: Yes: I discussed the CT results w/the radiologist Findings Narrative: CT HEAD/BRAIN WO CON Patient Age:64Y CLINICAL INDICATION: altered mental status the COMPARISON: HEADWO CT head/brain wo con from 04/12/[address] head/brain wo con from 05/21/2019 CT HEAD/BRAIN WO CON from 09/25/2019 TECHNIQUE: Standard axial images were obtained.. No IV contrast All CT scans at the facility use one or more dose reduction, viz: automated exposure control, ma/kV adjustment per patient size (including targeted exams where dose is matched to indication, i.e. head), or iterative reconstruction technique. FINDINGS: No acute intracranial findings. No significant change since September nor May 2019 CT head No intracranial hemorrhage. No territorial infarct. No hydrocephalus.The ventricles and basal cisterns appear clear and satisfactory. No mass or midline shift nor mass effect. No subdural or extra-axial fluid collection is evident. Posterior fossa unremarkable. Skull intact- calvarium unremarkable appearance. Nomastoid effusions. Mastoid air cells are well developed and clear. Middle ear clear. IAC's symmetric. Minimal vertebral artery calcifications bilateral Nosinus air-fluid level. IMPRESSION: No acute intracranial findings. Stable CT brain-no change CT brain from September and May 2019 Dictated by: Redd Corbett MD 01/07/2020 17:55 Electronically signed by Redd Corbett MD in [place] 01/07/2020 17:55 - Physician Consults Physician Consulted: Dr. Torres Time: 19:10 Reason -: Admission Comment/Response: Discussed with Dr. oTrres, regarding the patient and plan to admit the patient for possible senior living associated pneumonia. - Reevaluation(s) Time: 19:20 Reevaluation #1: Patient has been stable throughout the course of stay in the emergency department. Plan to discuss the case with the primary care provider for possible admission for pneumonia. Resp/SOB HPI - General Chief Complaint: Shortness of Breath/Dyspnea Stated Complaint: shortness of breath Time Seen by Provider: 01/07/20 15:22 Mode of Arrival: EMS Limitations: No Limitations Description of Symptoms (Recalled from ER Triage Doc. by RN): Per care home staff patient has had increased shortnes of breath that started around 12-1 pm today. - History of Present Illness 64-year-old male was brought in by the EMS for having altered mental status. He has also been coughing and having thick purulent type sputum on his tracheostomy stoma site. According to the nursing staff the patient is usually very age-related in nature. He is not responding well today and seems to be short of breath. MD Complaint: shortness of breath, cough Severity: moderate - Related Data Home Medications Medication Instructions Recorded Confirmed Atorvastatin Calcium [Atorvastatin 20 mg PO HS 04/05/18 11/21/19 20mg Tab] Carbidopa/Levodopa [Sinemet 25-100 1 each PO TID 04/05/18 11/21/19 mg Tablet] Pantoprazole Sodium [Protonix 40mg 40 mg PO DAILY 09/03/18 11/21/19 tablet] Tamsulosin HCl [Flomax 0.4mg 0.4 mg PO HS 09/03/18 11/21/19 capsule] polyethylene glycoL 3350 [Miralax 17 gm PO DAILY 09/03/18 11/21/19 17gm Packet] Benztropine Mesylate [Cogentin 1mg 1.5 mg PO BID 05/21/19 11/21/19 tablet] LORazepam [Ativan 0.5mg 0.5 mg PO BID 05/21/19 11/21/19 tablet] Lactulose [Lactulose 20gm/30ml 20 gm PO DAILY 05/21/19 11/21/19 Oral Soln] Oxycodone HCl [Oxycodone (IR) 5mg 5 mg PO QID 05/21/19 11/21/19 Cap] bisacodyL [Correctol] 10 mg PO BID 08/04/19 11/21/19 OXcarbazepine [Trileptal 300mg 600 mg PO BID 08/07/19 11/21/19 tablet] Ascorbic Acid [Vitamin C 500mg 500 mg PO DAILY 08/08/19 11/21/19 tablet] Cyclobenzaprine HCl 5 mg PO TID 08/08/19 11/21/19 [Cyclobenzaprine 5mg Tab] Ergocalciferol (Vitamin D2) 50,000 unit PO FR 08/08/19 11/21/19 [Vitamin D2] M-Vit,Tx,Iron,Mins/Calc/Folic 1 each PO DAILY 08/08/19 11/21/19 [Therapeutic M Tablet] OLANZapine [Olanzapine] 5 mg PO DAILY 08/08/19 11/21/19 Potassium Chloride [Micro-K 10mEq 20 meq PO TID 08/08/19 11/21/19 cap] Simethicone [Gas-X] 125 mg PO BID 08/08/19 11/21/19 Zinc Sulfate [Zinc Sulfate 220mg 220 mg PO DAILY 08/08/19 11/21/19 capsule] fentaNYL [fentaNYL 75mcg Patch] 75 mcg TD Q72H 08/08/19 11/21/19 levETIRAcetam [Keppra] 500 mg PO BID 08/08/19 11/21/19 Previous Rx's Medication Instructions Recorded Ertapenem Sodium [Invanz 1gm Vial] 1 gm IM Q24H 10 Days #10 vial 08/11/19 OLANZapine [Zyprexa 10mg Vial] 10 mg IM Q8H 10 Days #30 vial 08/11/19 OLANZapine [Zyprexa 5mg tablet] 10 mg PO TID 30 Days #90 tab 08/11/19 OXcarbazepine [Trileptal 300mg 600 mg PO BID tab 08/11/19 tablet] Quetiapine Fumarate [Seroquel 25mg 50 mg PO BID 30 Days #120 tab 08/11/19 tablet] Allergies Allergy/AdvReac Type Severity Reaction Status Date / Time hydroxyzine Allergy Verified 11/21/19 18:04 nylon Allergy Verified 11/21/19 18:04 [facility] History - Hepatitis A Screen Drug use history?: No High risk sexual behaviors?: No History of sexually transmitted infection?: No Currently employed?: No Childcare worker?: No Do you have indoor plumbing?: Yes Do you have electricity?: Yes Attestation statement:: This patient has been screened for Hepatitis A risk factors. I have reviewed the patient's past medical history: Yes Medical History: Reports:: Aneurysm (AAA), Dementia, Depression, Heart Murmur, Hyperlipidemia, Hypertension Denies:: Cancer, Diabetes Mellitus Type 1, Diabetes Mellitus Type 2 Other Medical History: Reports: Anemia, Arthritis Comment: AAA Laterality Cases: Left: Other, Right: Total Hip Replacement (left) Other Surgeries: Yes: Colonoscopy (9 years ago), Other (tracheostomy, pinning of left femur and foot) Amputation: No Fractures: No Comment: Trach, Pin in his Left Foot - Social History Educational Level: Completed High School Smoking Status: Unknown if ever smoked Alcohol Intake: never Substance Use Type: denies use Occupational Status: disabled Housing: senior living - Psychiatric History Pschychiatric History:: Reports:: Depression Family Hx:: Unable to obtain ROS Obtained: Yes unobtainable due to mental condition Physical Exam - General General appearance: lethargic, other (Patient is not verbalizing any. He seems to be lethargic. He is having Adan-Issa type breathing. He coughs but produces thick purulent drainage from the purulent site.) - Head Head exam: atraumatic, normocephalic, normal inspection - Eye Eye exam: Present: normal appearance, PERRL, EOMI - ENT ENT exam: Present: normal exam, normal oropharynx, mucous membranes moist, normal external ear exam - Neck Neck exam: Present: normal inspection, full ROM, trachea midline, other (Tracheostomy opening site at suprasternal notch area.) - Chest Chest inspection: Present: normal inspection, symmetric chest wall rise. Absent: tenderness - Respiratory Respiratory exam: Present: other (Bilateral coarse rhonchi. Thick purulent sputum from the tracheostomy site at the supra sternal area. Adan-Issa respiration.) - Cardiovascular Cardiovascular exam: Present: normal rhythm, tachycardia. Absent: JVD - Abdominal Exam Abdominal exam: Present: soft, distention, normal bowel sounds. Absent: tenderness, guarding - Extremities Exam Extremities exam: Present: other (At baseline status.) - Back Exam Back exam: Present: other (At baseline status.) - Neurological Exam Neurological exam: Present: other (Patient is not able to verbalize any. Not moving his extremities and not following any command.) - Skin Skin exam: Present: warm, dry, intact, normal color
[2020-01-07 15:36] LABS: Alanine Aminotransferase 6 U/L (12-78); Albumin Level 3.9 g/dl (3.5-5.0); Albumin/Globulin Ratio 1.1 (1.1-1.8); Alkaline Phosphatase 161 U/L (38-126); Anion Gap 8.5 mEq/L (5-15); Aspartate Amino Transferase 19 U/L (17-59); Bilirubin,Total 0.9 mg/dl (0.2-1.3); Blood Urea Nitrogen 16 mg/dl (9-20); Calcium 9.3 mg/dl (8.4-10.2); Carbon Dioxide 31 mmol/L (22.0-30.0); Chloride 104 mmol/L (98-107); Globulin 3.5 g/dL (1.3-3.2); Glucose 181 mg/dl (74-100); Sodium 139 mmol/L (136-145); Total Protein,Serum 7.4 g/dl (6.3-8.2)
[2020-01-07 15:39] LABS: ABG Base Excess 0.2 mmol/L (-2.4-2.3); ABG Oxygen Saturation 88 % (90-100); ABG PCO2 33.9 mmhg (35.0-45.0); ABG PH 7.47 mmol/L (7.35-7.45)
[2020-01-07 15:41] LABS: Allen's Test Patient Unable; Oxygen 4LPM NC %
[2020-01-07 15:43] LABS: ABG PO2 49.4 mmhg (80-100)
[2020-01-07 15:56] LABS: Hypochromasia 2+; Lymphocytes % 5 % (10-50); Monocytes % 4 % (2-9); Neutrophils % 91 % (42-76); Total Cells Counted 100
[2020-01-07 19:57] LABS: ABG HCO3 21.4 mmhg (22.0-26.0); ABG Oxygen Saturation 98 % (90-100); ABG PCO2 38.4 mmhg (35.0-45.0); ABG PH 7.36 mmol/L (7.35-7.45); ABG PO2 102.1 mmhg (80-100); ABG TCO2 22.5 mmhg (23-27)
[2020-01-08 07:23] LABS: Anion Gap 12.5 mEq/L (5-15); Calcium 8.8 mg/dl (8.4-10.2)
[2020-01-08 07:24] LABS: Basophils % 0.2 % (0.1-2.0); Eosinophils % 0.1 % (0.1-12.0); Hemoglobin 12.5 g/dL (14.1-18.0); Lymphocytes # 1.6 K/mm3 (0.7-4.5); Lymphocytes % 6.7 % (10-50); Mean Corpuscular HGB Conc 30.4 g/dL (31.8-35.4); Mean Corpuscular Volume 81.2 fl (80-94); Mean Platelet Volume 6.7 fl (7.4-10.4); Monocytes # 1.3 K/mm3 (0.1-1.0); Monocytes % 5.6 % (1.7-9.3); Neutrophils # 20.2 K/mm3 (1.8-7.8); Neutrophils % 87.4 % (37.0-80.0); Platelet Count 396 K/mm3 (142-424); Red Blood Count 5.05 M/mm3 (4.60-6.20); White Blood Count 23.2 K/mm3 (4.8-10.8)
[2020-01-08 07:52] LABS: Lymphocytes % 10 % (10-50); Monocytes % 5 % (2-9); Neutrophils % 85 % (42-76); Total Cells Counted 100
[2020-01-08 07:53] LABS: Anisocytosis 1+; Hypochromasia 1+
--- NOTE | 2020-01-08 08:44 | Pharmacy Consult Notes ---
[facility] Pharmacy VTE Monitoring - Patient Demographics Admission date: 01/07/20 Report Date: 01/08/20 Time: 08:44 Allergies/Adverse Reactions: Patient Allergies hydroxyzine Allergy (Verified 01/08/20 08:27) Unknown allergy reaction nylon Allergy (Verified 01/08/20 08:27) Unknown allergy reaction Height: 1.88 m Weight: 93.894 kg Patient Problems: Current Active Problems Pneumonia (Acute) Acute dyspnea (Acute) Hypoxemia (Acute) - VTE Risk Labs: VTE Related Lab Results Hgb 12.5 g/dL (14.1-18.0) L 01/08/20 06:55 Hct 41.0 % (42.0-52.0) L 01/08/20 06:55 Plt Count 396 K/mm3 (142-424) 01/08/20 06:55 BUN 21 mg/dl (9-20) H D 01/08/20 06:55 Creatinine 0.70 mg/dl (0.66-1.25) 01/08/20 06:55 Estimated Creat Clear 102 mL/min (50-200) 01/08/20 06:55 Was VTE Risk Assessment Performed: Yes VTE Score: 6 VTE Risk Level: Moderate Risk - Prophylaxis VTE Prophylaxis Ordered?: Yes Types of VTE Prophylaxis: TEDS Knee High Location of Applied Device: Bilateral Lower Extremeties - VTE Diagnosis Confirmed Treatment or plan recommended: Continue Current Treatment
[2020-01-08 09:04] LABS: Coronavirus 229E Not Detected (NotDetected); Coronavirus NL63 Not Detected (NotDetected); Coronavirus OC43 Not Detected (NotDetected); Coronovirus HKU1,PCR Not Detected (NotDetected)
--- NOTE | 2020-01-08 12:33 | History & Physical Report ---
*Admission Date: 01/07/20 *Chief complaint: sob *History of present illness: this wm sent from [facility] with sob - pt er [facility] staff patient has had increased shortness of breath that started around 12-1 pm today. 64-year-old male was brought in by the EMS for having altered mental status. He has also been coughing and having thick purulent type sputum on his tracheostomy stoma site. According to the nursing staff the patient is usually very age-related in nature. He is not responding well today and seems to be short of breath. pt was found to have elevated wbc and colored sputum - pt had abn cxr which showed bilat inflitrates and was admitted with hcap and sepsis [facility] History I have reviewed the patient's past medical history: Yes Medical History: Reports:: Aneurysm (AAA), Dementia, Depression, Heart Murmur, Hyperlipidemia, Hypertension Denies:: Cancer, Diabetes Mellitus Type 1, Diabetes Mellitus Type 2 *Have you ever received a pneumonia vaccine?: Yes *Have you received a flu vaccine this season?: Yes Other Medical History: Reports: Anemia, Arthritis Laterality Cases: Left: Other, Right: Total Hip Replacement (left) Other Surgeries: Yes: Colonoscopy (9 years ago), Other (tracheostomy, pinning of left femur and foot) Amputation: No Fractures: No - *Social History Educational Level: Completed High School Smoking Status: Unknown if ever smoked Alcohol Intake: never Substance Use Type: denies use *Occupational Status:: disabled Housing: shelter *Travel in the last 8 weeks: None - Psychiatric History Pschychiatric History:: Reports:: Depression Family Hx:: Unable to obtain Review of Systems - Review of Systems Review of systems:: pertinent systems reviewed and negative unless documented below - Constitutional Reports fever(s), Denies headache(s) - Eyes Denies change in vision - ENT Denies sore throat - *Cardiovascular Reports shortness of breath, Denies chest pain at rest - *Respiratory Reports cough, Reports shortness of breath, Denies coughing up blood - *Gastrointestinal Denies abdominal pain - *Genitourinary Denies blood in urine - *Musculoskeletal Denies joint pain - Integumentary/Breasts Denies rash - *Neurologic Denies seizure-like activity - Psychiatric Denies irritability Meds Home Medications Medication Instructions Recorded Confirmed Type Pantoprazole Sodium [Protonix 40mg 40 mg PO DAILY 09/03/18 01/08/20 History tablet] Tamsulosin HCl [Flomax 0.4mg 0.4 mg PO HS 09/03/18 01/08/20 History capsule] polyethylene glycoL 3350 [Miralax 17 gm PO DAILY 09/03/18 01/08/20 History 17gm Packet] LORazepam [Ativan 0.5mg 0.5 mg PO BID 05/21/19 01/08/20 History tablet] Oxycodone HCl [Oxycodone (IR) 5mg 5 mg PO QID 05/21/19 01/08/20 History Cap] bisacodyL [Correctol] 10 mg PO BID 08/04/19 01/08/20 History Ascorbic Acid [Vitamin C 500mg 500 mg PO DAILY 08/08/19 01/08/20 History tablet] Cyclobenzaprine HCl 5 mg PO TID 08/08/19 01/08/20 History [Cyclobenzaprine 5mg Tab] M-Vit,Tx,Iron,Mins/Calc/Folic 1 each PO DAILY 08/08/19 01/08/20 History [Therapeutic M Tablet] Potassium Chloride [Micro-K 10mEq 20 meq PO TID 08/08/19 01/08/20 History cap] Simethicone [Gas-X] 125 mg PO BID 08/08/19 01/08/20 History Zinc Sulfate [Zinc Sulfate 220mg 220 mg PO DAILY 08/08/19 01/08/20 History capsule] fentaNYL [fentaNYL 75mcg Patch] 75 mcg TD Q72H 08/08/19 01/08/20 History levETIRAcetam [Keppra] 750 mg PO BID 08/08/19 01/08/20 History OXcarbazepine [Trileptal 300mg 600 mg PO BID tab 08/11/19 01/08/20 Rx tablet] Acetaminophen [Tylenol 500mg 500 mg PO Q4HP PRN 01/08/20 01/08/20 History tablet] Atorvastatin Calcium [Atorvastatin 20 mg PO HS 01/08/20 01/08/20 History 20mg Tab] Benztropine Mesylate 2 mg PO TID 01/08/20 01/08/20 History Carbidopa/Levodopa [Sinemet 25-100 1 each PO TID 01/08/20 01/08/20 History mg Tablet] Doxepin HCl [Sinequan 10mg capsule] 10 mg PO Q8HP PRN 01/08/20 01/08/20 History Lactulose [Lactulose 10gm/15ml 30 ml PO DAILY 01/08/20 01/08/20 History Oral Soln] Menthol/Zinc Oxide [Menthol-Zinc 1 applicatio TP TID 01/08/20 01/08/20 History Oxide 0.45%-20%] OLANZapine [Olanzapine] 10 mg PO BID 01/08/20 01/08/20 History haloperidoL [Haloperidol] 10 mg PO TID 01/08/20 01/08/20 History Allergies Allergy/AdvReac Type Severity Reaction Status Date / Time hydroxyzine Allergy Unknown Verified 01/08/20 08:27 allergy reaction nylon Allergy Unknown Verified 01/08/20 08:27 allergy reaction Exam Vital signs and Labs for Last 24 Hours: Temp Pulse Resp BP Pulse Ox 98.8 F 121 H 20 140/80 91 L 01/08/20 08:00 01/08/20 08:00 01/08/20 08:00 01/08/20 08:00 01/08/20 08:00 Laboratory Results - last 24 hr 01/07/20 15:00: WBC 23.2 H*, RBC 5.47, Hgb 13.6 L, Hct 44.6, MCV 81.6, MCH 24.9 L, MCHC 30.5 L, RDW 15.1, Plt Count 488 H, MPV 6.9 L, Neut % (Auto) 91.6 H, Lymph % (Auto) 3.1 L, [place] % (Auto) 4.1, Eos % (Auto) 0.9, Baso % (Auto) 0.3, Neut # (Auto) 21.3 H, Lymph # (Auto) 0.7, [place] # (Auto) 0.9, Eos # (Auto) 0.2, Baso # (Auto) 0.1, Total Counted 100, Neutrophils % (Manual) 91 H, Lymphocytes % (Manual) 5 L, Monocytes % (Manual) 4, Platelet Estimate Marked increase, Hypochromasia 2+ 01/07/20 15:00: Sodium 139, Potassium 4.5, Chloride 104, Carbon Dioxide 31 H, Anion Gap 8.5, BUN 16, Creatinine 0.80, Estimated Creat Clear 113, Estimated GFR 98, Est GFR ( Amer) 119, Glucose 181 H, Calcium 9.3, Total Bilirubin 0.9, AST 19, ALT 6 L, Alkaline Phosphatase 161 H, Troponin I < 0.01, Total Protein 7.4, Albumin 3.9, Globulin 3.5 H, Albumin/Globulin Ratio 1.1 01/07/20 15:00: Lactate 1.8 01/07/20 15:11: Specimen Source Left radial, O2 % 4lpm nc, ABG pH 7.47 H, ABG pCO2 33.9 L, ABG pO2 49.4 L, ABG HCO3 24.0, ABG Total CO2 25.0, ABG O2 Saturation 88 L, ABG Base Excess 0.2, Stan Test Patient unable 01/07/20 18:00: Troponin I < 0.01 01/07/20 19:30: ABG pH 7.36, ABG pCO2 38.4, ABG pO2 102.1 H, ABG HCO3 21.4 L, ABG Total CO2 22.5 L, ABG O2 Saturation 98, ABG Base Excess -4.0 L 01/07/20 19:50: Influenza Type A Ag Negative, Influenza Type B Ag Negative 01/08/20 06:55: WBC 23.2 H*, RBC 5.05, Hgb 12.5 L, Hct 41.0 L, MCV 81.2, MCH 24.7 L, MCHC 30.4 L, RDW 15.0, Plt Count 396, MPV 6.7 L, Neut % (Auto) 87.4 H, Lymph % (Auto) 6.7 L, [place] % (Auto) 5.6, Eos % (Auto) 0.1, Baso % (Auto) 0.2, Neut # (Auto) 20.2 H, Lymph # (Auto) 1.6, [place] # (Auto) 1.3 H, Eos # (Auto) 0.0, Baso # (Auto) 0.0, Total Counted 100, Neutrophils % (Manual) 85 H, Lymphocytes % (Manual) 10, Monocytes % (Manual) 5, Platelet Estimate Normal, Hypochromasia 1+, Poikilocytosis 1+, Anisocytosis 1+, Microcytosis 1+ 01/08/20 06:55: Sodium 142, Potassium 4.5, Chloride 107, Carbon Dioxide 27, Anion Gap 12.5, BUN 21 H D, Creatinine 0.70, Estimated Creat Clear 102, Estimated GFR 114, Est GFR ( Amer) 138, Glucose 149 H, Calcium 8.8 01/08/20 08:50: Chlamy pneumoniae PCR Not detected, Adenovirus (PCR) Not detected, B. pertussis DNA (PCR) Not detected, Coronavirus OC43 (PCR) Not detected, Coronavirus HKU1 (PCR) Not detected, Coronavirus 229E (PCR) Not detected, Coronavirus NL63 (PCR) Not detected, Human Metapneumovir PCR Not detected, Influenza A (H1) PCR Not detected, Influ A (H1N1/09) PCR Not detected, Influenza A (H3) PCR Not detected, Influenza Type A (PCR) Not detected, Influenza Type B (PCR) Not detected, M. pneumoniae (PCR) Not detected, Parainfluenza 1 (PCR) Not detected, Parainfluenza 2 (PCR) Not detected, Parainfluenza 3 (PCR) Not detected, Parainfluenza 4 (PCR) Not detected, RSV (PCR) Not detected, Entero/Rhino (PCR) Not detected I & O for Last 24 hours: Intake & Output 01/06/20 01/07/20 01/08/20 01/09/20 10:59 10:59 11:59 11:59 Intake Total Balance Weight Microbiology Reports for the Last 24 Hours: Microbiology 01/07/20 15:30 Sputum - Endotracheal Tube Aspirate Gram Stain - Final 01/07/20 15:30 Sputum - Endotracheal Tube Aspirate Sputum Culture - Preliminary - Constitutional no acute distress - *Routine HEENT Exam Head: Present: normocephalic Eye: Present: EOMI, PERRL ENT: Present: mucous membranes dry Comments: healing trach - *Routine Neck Exam Present: supple. Absent: JVD - *Routine Respiratory Exam Present: decreased breath sounds, rhonchi. Absent: respiratory distress - *Routine Cardiovascular Exam Present: RRR, murmur. Absent: rubs - *Routine Abdominal Exam Present: soft - *Routine Extremities Exam Absent: calf tenderness - *Routine Skin Exam Present: intact - *Routine Neurological Exam Present: alert, CN II-XII intact, moving all extremities - Routine Psychiatric Exam Present: unable to assess Assessment and Plan (1) HCAP (healthcare-associated pneumonia) Current visit: Yes Status: Acute Category: Medical Code(s): J18.9 - Pneumonia, unspecified organism (2) Sepsis Current visit: Yes Status: Acute Qualifiers: Sepsis type: sepsis due to unspecified organism Sepsis acute organ dysfunction status: without acute organ dysfunction Qualified Code(s): A41.9 - Sepsis, unspecified organism Category: Medical Code(s): A41.9 - Sepsis, unspecified organism (3) Parkinson disease Current visit: No Status: Acute Category: Medical Code(s): G20 - Parkinson's disease
--- NOTE | 2020-01-08 12:57 | Electrocardiograph Report ---
APPROVED REPORT Exam: Resting ECG HR:138 bpm ECG Measurements Heart Rate 138 AXES [place] 130 P 40 QRSd 78 QRS 9 QT 290 T32 QTc 439 <Conclusion> Sinus tachycardia Right atrial enlargement Borderline ECG Electronically signed by : Carlton Yu, 01/08/2020 12:56:45
--- NOTE | 2020-01-08 12:57 | Electrocardiograph Report ---
APPROVED REPORT Exam: Resting ECG HR:128 bpm ECG Measurements Heart Rate 128 AXES [place] 134 P 36 QRSd 78 QRS -11 QT 298 T22 QTc 435 <Conclusion> Sinus tachycardia Otherwise normal ECG Electronically signed by : Carlton Yu, 01/08/2020 12:56:36
[2020-01-09 08:42] LABS: Basophils % 0.3 % (0.1-2.0); Eosinophils # 0.1 K/mm3 (0.0-0.4); Eosinophils % 0.4 % (0.1-12.0); Hematocrit 38.2 % (42.0-52.0); Hemoglobin 11.6 g/dL (14.1-18.0); Lymphocytes # 0.7 K/mm3 (0.7-4.5); Lymphocytes % 4.9 % (10-50); Mean Corpuscular HGB Conc 30.5 g/dL (31.8-35.4); Mean Corpuscular Volume 81.1 fl (80-94); Mean Platelet Volume 7.5 fl (7.4-10.4); Monocytes # 1.1 K/mm3 (0.1-1.0); Monocytes % 7.1 % (1.7-9.3); Neutrophils # 13.2 K/mm3 (1.8-7.8); Neutrophils % 87.2 % (37.0-80.0); Platelet Count 364 K/mm3 (142-424); Red Blood Count 4.71 M/mm3 (4.60-6.20); White Blood Count 15.1 K/mm3 (4.8-10.8)
[2020-01-09 12:31] LABS: Hypochromasia 1+; Lymphocytes % 5 % (10-50); Monocytes % 4 % (2-9); Neutrophils % 91 % (42-76); Total Cells Counted 100
--- NOTE | 2020-01-09 13:47 | Progress Note ---
Internal Medicine - PN: Subj *Date: 01/09/20 *Time: 19:51 Interval history: doing better - eating - on o2 - Exam Vital signs and Labs for Last 24 Hours: Temp Pulse Resp BP Pulse Ox 99.9 F H 112 H 20 162/92 H 96 01/09/20 08:00 01/09/20 08:00 01/09/20 08:00 01/09/20 08:00 01/09/20 08:00 Laboratory Results - last 24 hr 01/08/20 11:45: POC Glucose 145 H 01/08/20 16:36: POC Glucose 170 H 01/09/20 07:20: WBC 15.1 H D, RBC 4.71, Hgb 11.6 L, Hct 38.2 L, MCV 81.1, MCH 24.7 L, MCHC 30.5 L, RDW 15.0, Plt Count 364, MPV 7.5, Neut % (Auto) 87.2 H, Lymph % (Auto) 4.9 L, [place] % (Auto) 7.1, Eos % (Auto) 0.4, Baso % (Auto) 0.3, Neut # (Auto) 13.2 H, Lymph # (Auto) 0.7, [place] # (Auto) 1.1 H, Eos # (Auto) 0.1, Baso # (Auto) 0.0, Total Counted 100, Neutrophils % (Manual) 91 H, Lymphocytes % (Manual) 5 L, Monocytes % (Manual) 4, Platelet Estimate Normal, Hypochromasia 1+ I & O for Last 24 hours: Intake & Output 01/07/20 01/08/20 01/09/20 01/10/20 10:59 11:59 11:59 11:59 Intake Total 2260 / 2260 Output Total 0 / 0 Balance 2260 / 2260 Weight 207 lb 9 oz Microbiology Reports for the Last 24 Hours: Microbiology 01/07/20 15:30 Sputum - Endotracheal Tube Aspirate Gram Stain - Final 01/07/20 15:30 Sputum - Endotracheal Tube Aspirate Sputum Culture - Preliminary Gram Positive Cocci - Constitutional no acute distress - *Routine HEENT Exam Head: Present: normocephalic Eye: Present: EOMI, PERRL ENT: Present: mucous membranes dry - *Routine Neck Exam Absent: JVD - *Routine Respiratory Exam Present: prolonged expiratory phase, wheezes. Absent: respiratory distress - *Routine Cardiovascular Exam Present: RRR - *Routine Abdominal Exam Present: soft - *Routine Extremities Exam Absent: calf tenderness - *Routine Skin Exam Present: intact - *Routine Neurological Exam Present: alert, CN II-XII intact - Routine Psychiatric Exam Absent: good insight Assessment and Plan (1) HCAP (healthcare-associated pneumonia) Current visit: Yes Status: Acute Category: Medical Code(s): J18.9 - Pneumonia, unspecified organism (2) Sepsis Current visit: Yes Status: Acute Qualifiers: Sepsis type: sepsis due to unspecified organism Sepsis acute organ dysfunction status: without acute organ dysfunction Qualified Code(s): A41.9 - Sepsis, unspecified organism Category: Medical Code(s): A41.9 - Sepsis, unspecified organism (3) Parkinson disease Current visit: No Status: Acute Category: Medical Code(s): G20 - Par kinson's disease
--- NOTE | 2020-01-09 13:59 | Pharmacy Consult Notes ---
- Pharmacy Consult Date: 01/09/20 Time: 13:58 Referring provider: DR. HERNÁNDEZ Reason for Consult:: VANCOMYCIN DOSING Allergies and ADEs:: Allergies Allergy/AdvReac Type Severity Reaction Status Date / Time hydroxyzine Allergy Unknown Verified 01/08/20 08:27 allergy reaction nylon Allergy Unknown Verified 01/08/20 08:27 allergy reaction Home Medications:: Home Medications Medication Instructions Recorded Confirmed Type Pantoprazole Sodium [Protonix 40mg 40 mg PO DAILY 09/03/18 01/08/20 History tablet] Tamsulosin HCl [Flomax 0.4mg 0.4 mg PO HS 09/03/18 01/08/20 History capsule] polyethylene glycoL 3350 [Miralax 17 gm PO DAILY 09/03/18 01/08/20 History 17gm Packet] LORazepam [Ativan 0.5mg 0.5 mg PO BID 05/21/19 01/08/20 History tablet] Oxycodone HCl [Oxycodone (IR) 5mg 5 mg PO QID 05/21/19 01/08/20 History Cap] bisacodyL [Correctol] 10 mg PO BID 08/04/19 01/08/20 History Ascorbic Acid [Vitamin C 500mg 500 mg PO DAILY 08/08/19 01/08/20 History tablet] Cyclobenzaprine HCl 5 mg PO TID 08/08/19 01/08/20 History [Cyclobenzaprine 5mg Tab] M-Vit,Tx,Iron,Mins/Calc/Folic 1 each PO DAILY 08/08/19 01/08/20 History [Therapeutic M Tablet] Potassium Chloride [Micro-K 10mEq 20 meq PO TID 08/08/19 01/08/20 History cap] Simethicone [Gas-X] 125 mg PO BID 08/08/19 01/08/20 History Zinc Sulfate [Zinc Sulfate 220mg 220 mg PO DAILY 08/08/19 01/08/20 History capsule] fentaNYL [fentaNYL 75mcg Patch] 75 mcg TD Q72H 08/08/19 01/08/20 History levETIRAcetam [Keppra] 750 mg PO BID 08/08/19 01/08/20 History OXcarbazepine [Trileptal 300mg 600 mg PO BID tab 08/11/19 01/08/20 Rx tablet] Acetaminophen [Tylenol 500mg 500 mg PO Q4HP PRN 01/08/20 01/08/20 History tablet] Atorvastatin Calcium [Atorvastatin 20 mg PO HS 01/08/20 01/08/20 History 20mg Tab] Benztropine Mesylate 2 mg PO TID 01/08/20 01/08/20 History Carbidopa/Levodopa [Sinemet 25-100 1 each PO TID 01/08/20 01/08/20 History mg Tablet] Doxepin HCl [Sinequan 10mg capsule] 10 mg PO Q8HP PRN 01/08/20 01/08/20 History Lactulose [Lactulose 10gm/15ml 30 ml PO DAILY 01/08/20 01/08/20 History Oral Soln] Menthol/Zinc Oxide [Menthol-Zinc 1 applicatio TP TID 01/08/20 01/08/20 History Oxide 0.45%-20%] OLANZapine [Olanzapine] 10 mg PO BID 01/08/20 01/08/20 History haloperidoL [Haloperidol] 10 mg PO TID 01/08/20 01/08/20 History Height: 1.88 m Weight: 94 kg Laboratory Results:: Laboratory Results - last 24 hr 01/08/20 11:45: POC Glucose 145 H 01/08/20 16:36: POC Glucose 170 H 01/09/20 07:20: WBC 15.1 H D, RBC 4.71, Hgb 11.6 L, Hct 38.2 L, MCV 81.1, MCH 24.7 L, MCHC 30.5 L, RDW 15.0, Plt Count 364, MPV 7.5, Neut % (Auto) 87.2 H, Lymph % (Auto) 4.9 L, [place] % (Auto) 7.1, Eos % (Auto) 0.4, Baso % (Auto) 0.3, Neut # (Auto) 13.2 H, Lymph # (Auto) 0.7, [place] # (Auto) 1.1 H, Eos # (Auto) 0.1, Baso # (Auto) 0.0, Total Counted 100, Neutrophils % (Manual) 91 H, Lymphocytes % (Manual) 5 L, Monocytes % (Manual) 4, Platelet Estimate Normal, Hypochromasia 1+ Medical History: Reports:: Aneurysm (AAA), Dementia, Depression, Heart Murmur, Hyperlipidemia, Hypertension Denies:: Cancer, Diabetes Mellitus Type 1, Diabetes Mellitus Type 2 Assessment and Plan (1) HCAP (healthcare-associated pneumonia) Current visit: Yes Status: Acute Category: Medical Code(s): J18.9 - Pneumonia, unspecified organism (2) Sepsis Current visit: Yes Status: Acute Qualifiers: Sepsis type: sepsis due to unspecified organism Sepsis acute organ dysfunction status: without acute organ dysfunction Qualified Code(s): A41.9 - Sepsis, unspecified organism Category: Medical Code(s): A41.9 - Sepsis, unspecified organism (3) Parkinson disease Current visit: No Status: Acute Category: Medical Code(s): G20 - Parkinson's disease - Assessment and plan all Dx Assessment and Plan for all problems:: BASED ON PATIENT FACTORS, RECOMMEND VANCOMYCIN 1,750 IV EVERY 8 HOURS. WILL OBTAIN TROUGH LEVEL PRIOR TO FOURTH DOSE AND ADJUST DOSE APPROPRIATE AT THAT POINT. -LEILA SYED, ROSAMARIAD
--- NOTE | 2020-01-10 08:27 | Progress Note ---
Internal Medicine - PN: Subj *Date: 01/10/20 *Time: 08:43 Interval history: 64-year-old male patient sitting up in bed respirations easy even on room air. He does report he is feeling better today will get up out of bed into chair for all meals Exam Vital signs and Labs for Last 24 Hours: Temp Pulse Resp BP Pulse Ox 99.8 F H 110 H 18 158/77 H 93 L 01/10/20 07:53 01/10/20 07:53 01/10/20 07:53 01/10/20 07:53 01/10/20 07:53 Laboratory Results - last 24 hr 01/09/20 07:20: WBC 15.1 H D, RBC 4.71, Hgb 11.6 L, Hct 38.2 L, MCV 81.1, MCH 24.7 L, MCHC 30.5 L, RDW 15.0, Plt Count 364, MPV 7.5, Neut % (Auto) 87.2 H, Lymph % (Auto) 4.9 L, [place]th[place]omew % (Auto) 7.1, Eos % (Auto) 0.4, Baso % (Auto) 0.3, Neut # (Auto) 13.2 H, Lymph # (Auto) 0.7, [place]th[place]omew # (Auto) 1.1 H, Eos # (Auto) 0.1, Baso # (Auto) 0.0, Total Counted 100, Neutrophils % (Manual) 91 H, Lymphocytes % (Manual) 5 L, Monocytes % (Manual) 4, Platelet Estimate Normal, Hypochromasia 1+ 01/09/20 22:58: POC Glucose 137 H 01/10/20 03:27: POC Glucose 105 I & O for Last 24 hours: Intake & Output 01/07/20 01/08/20 01/09/20 01/10/20 22:59 23:59 23:59 23:59 Intake Total 1430 / 1550 687 / 687 Output Total 0 / 0 Balance 1430 / 1550 687 / 687 Weight 207 lb 3.752 oz Microbiology Reports for the Last 24 Hours: Microbiology 01/07/20 15:30 Sputum - Endotracheal Tube Aspirate Gram Stain - Final 01/07/20 15:30 Sputum - Endotracheal Tube Aspirate Sputum Culture - Preliminary Staphylococcus aureus 01/07/20 15:00 Blood Blood Culture - Preliminary NO GROWTH AFTER 48 HOURS 01/07/20 15:00 Blood Blood Culture - Preliminary NO GROWTH AFTER 48 HOURS - Constitutional no acute distress - *Routine HEENT Exam Head: Present: normocephalic. Absent: tenderness of temporal artery Eye: Present: EOMI, PERRL, normal accommodation. Absent: periorbital tenderness ENT: Present: mucous membranes dry. Absent: sinus tenderness - *Routine Neck Exam Present: supple, trachea midline. Absent: JVD Comments: Tracheostomy - *Routine Respiratory Exam Present: rales. Absent: accessory muscle use - *Routine Cardiovascular Exam Present: RRR - *Routine Abdominal Exam Present: soft, normoactive bowel sounds. Absent: tenderness, firm - *Routine Extremities Exam Present: pulses intact. Absent: calf tenderness - Routine Back/Spine/Pelvis Exam Back/Spine: Present: full ROM. Absent: CVA tenderness - *Routine Skin Exam Present: wounds Comments: Dressing intact left buttock - *Routine Neurological Exam Present: alert, CN II-XII intact - Routine Psychiatric Exam Present: normal affect, cooperative. Absent: anxious Assessment and Plan (1) HCAP (healthcare-associated pneumonia) Current visit: Yes Status: Acute Category: Medical Code(s): J18.9 - Pneumonia, unspecified organism (2) Sepsis Current visit: Yes Status: Acute Qualifiers: Sepsis type: sepsis due to unspecified organism Sepsis acute organ dysfunction status: without acute organ dysfunction Qualified Code(s): A41.9 - Sepsis, unspecified organism Category: Medical Code(s): A41.9 - Sepsis, unspecified organism (3) Parkinson disease Current visit: No Status: Acute Category: Medical Code(s): G20 - Parkinson's disease - Assessment and plan all Dx Assessment and Plan for all problems:: Rounded with Dr. Hua, all orders per Dr. Hua 1. Urine culture resulted, vancomycin started 2. Up in chair for all meals The patient's infection will respond to the chosen ABx?: Yes Is the patient receiving the right drug, dose, and route?: Yes Could a more targeted ABx be ordered?: No
[2020-01-10 08:41] LABS: Basophils % 0.3 % (0.1-2.0); Eosinophils # 0.1 K/mm3 (0.0-0.4); Eosinophils % 0.7 % (0.1-12.0); Hemoglobin 11.5 g/dL (14.1-18.0); Lymphocytes # 1.1 K/mm3 (0.7-4.5); Lymphocytes % 7.5 % (10-50); Mean Corpuscular HGB Conc 32.1 g/dL (31.8-35.4); Mean Corpuscular Volume 77.7 fl (80-94); Mean Platelet Volume 7.8 fl (7.4-10.4); Monocytes # 1.4 K/mm3 (0.1-1.0); Monocytes % 9.6 % (1.7-9.3); Neutrophils # 12.3 K/mm3 (1.8-7.8); Platelet Count 385 K/mm3 (142-424); Red Blood Count 4.63 M/mm3 (4.60-6.20); Red Cell Distribution Width 14.7 % (11.5-17.5)
[2020-01-10 08:49] LABS: Anion Gap 12.2 mEq/L (5-15); Calcium 8.2 mg/dl (8.4-10.2)
[2020-01-10 09:09] LABS: Eosinophils % 1 % (0-3); Hypochromasia 1+; Lymphocytes % 8 % (10-50); Monocytes % 8 % (2-9); Neutrophils % 83 % (42-76); Total Cells Counted 100
--- NOTE | 2020-01-10 15:48 | Pharmacy Consult Notes ---
- Pharmacy Consult Date: 01/10/20 Time: 15:46 Referring provider: DR. HERNÁNDEZ Reason for Consult:: VANCOMYCIN TROUGH LEVEL AND DOSE CHANGE Allergies and ADEs:: Allergies Allergy/AdvReac Type Severity Reaction Status Date / Time hydroxyzine Allergy Unknown Verified 01/08/20 08:27 allergy reaction nylon Allergy Unknown Verified 01/08/20 08:27 allergy reaction Home Medications:: Home Medications Medication Instructions Recorded Confirmed Type Pantoprazole Sodium [Protonix 40mg 40 mg PO DAILY 09/03/18 01/08/20 History tablet] Tamsulosin HCl [Flomax 0.4mg 0.4 mg PO HS 09/03/18 01/08/20 History capsule] polyethylene glycoL 3350 [Miralax 17 gm PO DAILY 09/03/18 01/08/20 History 17gm Packet] LORazepam [Ativan 0.5mg 0.5 mg PO BID 05/21/19 01/08/20 History tablet] Oxycodone HCl [Oxycodone (IR) 5mg 5 mg PO QID 05/21/19 01/08/20 History Cap] bisacodyL [Correctol] 10 mg PO BID 08/04/19 01/08/20 History Ascorbic Acid [Vitamin C 500mg 500 mg PO DAILY 08/08/19 01/08/20 History tablet] Cyclobenzaprine HCl 5 mg PO TID 08/08/19 01/08/20 History [Cyclobenzaprine 5mg Tab] M-Vit,Tx,Iron,Mins/Calc/Folic 1 each PO DAILY 08/08/19 01/08/20 History [Therapeutic M Tablet] Potassium Chloride [Micro-K 10mEq 20 meq PO TID 08/08/19 01/08/20 History cap] Simethicone [Gas-X] 125 mg PO BID 08/08/19 01/08/20 History Zinc Sulfate [Zinc Sulfate 220mg 220 mg PO DAILY 08/08/19 01/08/20 History capsule] fentaNYL [fentaNYL 75mcg Patch] 75 mcg TD Q72H 08/08/19 01/08/20 History levETIRAcetam [Keppra] 750 mg PO BID 08/08/19 01/08/20 History OXcarbazepine [Trileptal 300mg 600 mg PO BID tab 08/11/19 01/08/20 Rx tablet] Acetaminophen [Tylenol 500mg 500 mg PO Q4HP PRN 01/08/20 01/08/20 History tablet] Atorvastatin Calcium [Atorvastatin 20 mg PO HS 01/08/20 01/08/20 History 20mg Tab] Benztropine Mesylate 2 mg PO TID 01/08/20 01/08/20 History Carbidopa/Levodopa [Sinemet 25-100 1 each PO TID 01/08/20 01/08/20 History mg Tablet] Doxepin HCl [Sinequan 10mg capsule] 10 mg PO Q8HP PRN 01/08/20 01/08/20 History Lactulose [Lactulose 10gm/15ml 30 ml PO DAILY 01/08/20 01/08/20 History Oral Soln] Menthol/Zinc Oxide [Menthol-Zinc 1 applicatio TP TID 01/08/20 01/08/20 History Oxide 0.45%-20%] OLANZapine [Olanzapine] 10 mg PO BID 01/08/20 01/08/20 History haloperidoL [Haloperidol] 10 mg PO TID 01/08/20 01/08/20 History Height: 1.88 m Weight: 94 kg Laboratory Results:: Laboratory Results - last 24 hr 01/07/20 19:57: POC Glucose 149 H 01/09/20 22:58: POC Glucose 137 H 01/10/20 03:27: POC Glucose 105 01/10/20 08:30: WBC 15.0 H, RBC 4.63, Hgb 11.5 L, Hct 36.0 L, MCV 77.7 L, MCH 25.0 L, MCHC 32.1, RDW 14.7, Plt Count 385, MPV 7.8, Neut % (Auto) 82.0 H, Lymph % (Auto) 7.5 L, [place] % (Auto) 9.6 H, Eos % (Auto) 0.7, Baso % (Auto) 0.3, Neut # (Auto) 12.3 H, Lymph # (Auto) 1.1, [place] # (Auto) 1.4 H, Eos # (Auto) 0.1, Baso # (Auto) 0.0, Total Counted 100, Neutrophils % (Manual) 83 H, Lymphocytes % (Manual) 8 L, Monocytes % (Manual) 8, Eosinophils % (Manual) 1, Platelet Estimate Normal, Hypochromasia 1+ 01/10/20 08:30: Sodium 137, Potassium 3.2 L D, Chloride 102, Carbon Dioxide 26, Anion Gap 12.2, BUN 11 D, Creatinine 0.50 L D, Estimated Creat Clear 102, Es timated GFR 168, Est GFR ( Amer) 204 D, Glucose 124 H, Calcium 8.2 L 01/10/20 14:05: Vancomycin Trough 9.1 Medical History: Reports:: Aneurysm (AAA), Dementia, Depression, Heart Murmur, Hyperlipidemia, Hypertension Denies:: Cancer, Diabetes Mellitus Type 1, Diabetes Mellitus Type 2 Assessment and Plan (1) HCAP (healthcare-associated pneumonia) Current visit: Yes Status: Acute Category: Medical Code(s): J18.9 - Pneumonia, unspecified organism (2) Sepsis Current visit: Yes Status: Acute Qualifiers: Sepsis type: sepsis due to unspecified organism Sepsis acute organ dysfunction status: without acute organ dysfunction Qualified Code(s): A41.9 - Sepsis, unspecified organism Category: Medical Code(s): A41.9 - Sepsis, unspecified organism (3) Parkinson disease Current visit: No Status: Acute Category: Medical Code(s): G20 - Parkinson's disease - Assessment and plan all Dx Assessment and Plan for all problems:: BASED ON PATIENT FACTORS AND VANCOMYCIN TROUGH LEVEL OF 9.1, RECOMMEND INCREASING VANCOMYCIN DOSE TO 2,250MG IV EVERY 8 HOURS. WILL OBTAIN TROUGH LEVEL PRIOR TO FOURTH DOSE AND ADJUST DOSE APPROPRIATE AT THAT POINT. -LEILA SYED PHARMD
[2020-01-11 05:58] LABS: Basophils # 0.1 K/mm3 (0-0.2); Basophils % 0.5 % (0.1-2.0); Eosinophils # 0.2 K/mm3 (0.0-0.4); Eosinophils % 1.8 % (0.1-12.0); Hematocrit 33.2 % (42.0-52.0); Hemoglobin 10.5 g/dL (14.1-18.0); Mean Corpuscular HGB Conc 31.6 g/dL (31.8-35.4); Mean Corpuscular Volume 78.5 fl (80-94); Mean Platelet Volume 7.7 fl (7.4-10.4); Monocytes # 1.5 K/mm3 (0.1-1.0); Monocytes % 12.9 % (1.7-9.3); Neutrophils # 8.7 K/mm3 (1.8-7.8); Neutrophils % 75.8 % (37.0-80.0); Platelet Count 397 K/mm3 (142-424); Red Blood Count 4.22 M/mm3 (4.60-6.20); Red Cell Distribution Width 14.6 % (11.5-17.5); White Blood Count 11.4 K/mm3 (4.8-10.8)
[2020-01-11 06:09] LABS: Anion Gap 8.4 mEq/L (5-15)
--- NOTE | 2020-01-11 09:13 | Progress Note ---
Internal Medicine - PN: Subj *Date: 01/11/20 *Time: 09:09 Interval history: 64-year-old male patient sitting up in bed respirations easy even, oxygenation 91% on room air. Sister at bedside, reports patient is eating when fed by family and this is his usual status. Exam Vital signs and Labs for Last 24 Hours: Temp Pulse Resp BP Pulse Ox 99.2 F 107 H 18 143/74 H 91 L 01/11/20 08:00 01/11/20 08:00 01/11/20 08:00 01/11/20 08:00 01/11/20 08:00 Laboratory Results - last 24 hr 01/07/20 19:57: POC Glucose 149 H 01/10/20 08:30: Total Counted 100, Neutrophils % (Manual) 83 H, Lymphocytes % (Manual) 8 L, Monocytes % (Manual) 8, Eosinophils % (Manual) 1, Platelet Estimate Normal, Hypochromasia 1+ 01/10/20 14:05: Vancomycin Trough 9.1 01/11/20 05:36: WBC 11.4 H, RBC 4.22 L, Hgb 10.5 L, Hct 33.2 L, MCV 78.5 L, MCH 24.8 L, MCHC 31.6 L, RDW 14.6, Plt Count 397, MPV 7.7, Neut % (Auto) 75.8, Lymph % (Auto) 9.0 L, [place] % (Auto) 12.9 H, Eos % (Auto) 1.8, Baso % (Auto) 0.5, Neut # (Auto) 8.7 H, Lymph # (Auto) 1.0, [place] # (Auto) 1.5 H, Eos # (Auto) 0.2, Baso # (Auto) 0.1 01/11/20 05:36: Sodium 140, Potassium 3.4 L, Chloride 105, Carbon Dioxide 30, Anion Gap 8.4, BUN 11, Creatinine 0.50 L, Estimated Creat Clear 103, Estimated GFR 168, Est GFR ( Amer) 204, Glucose 117 H, Calcium 8.0 L I & O for Last 24 hours: Intake & Output 01/08/20 01/09/20 01/10/20 01/11/20 23:59 23:59 23:59 23:59 Intake Total 1430 / 1550 2330 / 2330 240 / 240 Output Total 0 / 0 Balance 1430 / 1550 2330 / 2330 240 / 240 Weight 207 lb 3.752 oz 210 lb 1 oz Microbiology Reports for the Last 24 Hours: Microbiology 01/07/20 15:30 Sputum - Endotracheal Tube Aspirate Gram Stain - Final 01/07/20 15:30 Sputum - Endotracheal Tube Aspirate Sputum Culture - Final Staphylococcus aureus - Constitutional no acute distress - *Routine HEENT Exam Head: Present: normocephalic Eye: Present: EOMI, PERRL ENT: Present: mucous membranes dry - *Routine Neck Exam Present: full ROM. Absent: JVD Comments: Tracheostomy - *Routine Respiratory Exam Present: rhonchi. Absent: accessory muscle use - *Routine Cardiovascular Exam Present: RRR - *Routine Abdominal Exam Present: soft, normoactive bowel sounds. Absent: tenderness, firm - *Routine Extremities Exam Present: pulses intact. Absent: calf tenderness - Routine Back/Spine/Pelvis Exam Back/Spine: Present: full ROM. Absent: CVA tenderness - *Routine Skin Exam Present: warm, wounds. Absent: erythema Comments: Dressing intact left buttock - *Routine Neurological Exam Present: alert, CN II-XII intact (Have lab trying). Absent: motor deficit - Routine Psychiatric Exam Present: normal affect, cooperative. Absent: anxious Assessment and Plan (1) HCAP (healthcare-associated pneumonia) Current visit: Yes Status: Acute Category: Medical Code(s): J18.9 - Pneumonia, unspecified organism (2) Sepsis Current visit: Yes Status: Acute Qualifiers: Sepsis type: sepsis due to unspecified organism Sepsis acute organ dysfunction status: without acute organ dysfunction Qualified Code(s): A41.9 - Sepsis, unspecified organism Category: Medical Code(s): A41.9 - Sepsis, unspecified organism (3) Parkinson disease Current visit: No Status: Acute Category: Medical Code(s): G20 - Parkinson's disease (4) Pneumonia of both lower lobes due to methicillin resistant Staphylococcus aureus (MRSA) Current visit: Yes Status: Acute Category: Medical Code(s): J15.212 - Pneumonia due to Methicillin resistant Staphylococcus aureus - Assessment and plan all Dx Assessment and Plan for all problems:: Rounded with Dr. Hua, all orders per Dr. Hua 1. Two-view chest x-ray today 2. DC IV Vanco, start Bactrim DS PO 1 twice daily x 10 days 3. Speech eval 4. Probable discharge back to care center tomorrow
[2020-01-12 08:20] LABS: Basophils % 0.4 % (0.1-2.0); Eosinophils # 0.2 K/mm3 (0.0-0.4); Eosinophils % 2.2 % (0.1-12.0); Hematocrit 35.6 % (42.0-52.0); Lymphocytes # 1.1 K/mm3 (0.7-4.5); Lymphocytes % 9.6 % (10-50); Mean Corpuscular HGB Conc 30.8 g/dL (31.8-35.4); Mean Corpuscular Volume 79.8 fl (80-94); Mean Platelet Volume 7.7 fl (7.4-10.4); Monocytes # 1.5 K/mm3 (0.1-1.0); Monocytes % 13.7 % (1.7-9.3); Neutrophils # 8.1 K/mm3 (1.8-7.8); Platelet Count 417 K/mm3 (142-424); Red Blood Count 4.46 M/mm3 (4.60-6.20); Red Cell Distribution Width 14.6 % (11.5-17.5)
[2020-01-12 08:33] LABS: Anion Gap 11.2 mEq/L (5-15)
--- NOTE | 2020-01-12 08:33 | Progress Note ---
Internal Medicine - PN: Subj *Date: 01/12/20 *Time: 08:29 Interval history: 64-year-old male patient sitting up in chair on roomair O2 sats 91%, respirations easy/even, he reports he is feeling better. Chest x-ray 01/10 showing large loculated right-sided pleural effusion with cardiomegaly. Te mperature during the night to 100.2, discussed patient's condition with patient and sister, she verbalizes understanding and denies any questions Exam Vital signs and Labs for Last 24 Hours: Temp Pulse Resp BP Pulse Ox 98.6 F 111 H 18 139/87 86 L 01/12/20 08:00 01/12/20 08:00 01/12/20 08:00 01/12/20 08:00 01/12/20 08:00 Laboratory Results - last 24 hr 01/11/20 16:18: Vancomycin Trough 8.5 01/12/20 08:10: WBC 11.0 H, RBC 4.46 L, Hgb 11.0 L, Hct 35.6 L, MCV 79.8 L, MCH 24.6 L, MCHC 30.8 L, RDW 14.6, Plt Count 417, MPV 7.7, Neut % (Auto) 74.0, Lymph % (Auto) 9.6 L, [place] % (Auto) 13.7 H, Eos % (Auto) 2.2, Baso % (Auto) 0.4, Neut # (Auto) 8.1 H, Lymph # (Auto) 1.1, [place] # (Auto) 1.5 H, Eos # (Auto) 0.2, Baso # (Auto) 0.0 I & O for Last 24 hours: Intake & Output 01/09/20 01/10/20 01/11/20 01/12/20 23:59 23:59 23:59 23:59 Intake Total 1430 / 1550 2330 / 2330 360 / 360 351 / 351 Output Total 0 / 0 Balance 1430 / 1550 2330 / 2330 360 / 360 351 / 351 Weight 207 lb 3.752 oz 210 lb 1 oz 209 lb 1.418 oz - Constitutional no acute distress - *Routine HEENT Exam Head: Present: normocephalic. Absent: tenderness of temporal artery Eye: Present: EOMI, PERRL. Absent: periorbital tenderness ENT: Present: mucous membranes dry. Absent: sinus tenderness - *Routine Neck Exam Present: supple, trachea midline. Absent: JVD Comments: Tracheostomy - *Routine Respiratory Exam Present: rhonchi. Absent: accessory muscle use - *Routine Cardiovascular Exam Present: RRR - *Routine Abdominal Exam Present: soft, normoactive bowel sounds. Absent: tenderness, firm - *Routine Extremities Exam Present: pulses intact. Absent: calf tenderness, tenderness - Routine Back/Spine/Pelvis Exam Back/Spine: Present: full ROM. Absent: CVA tenderness - *Routine Skin Exam Present: wounds Comments: Dressing to left buttock clean dry and intact - *Routine Neurological Exam Present: alert, CN II-XII intact, moving all extremities - Routine Psychiatric Exam Present: normal affect. Absent: visual hallucinations Assessment and Plan (1) HCAP (healthcare-associated pneumonia) Current visit: Yes Status: Acute Category: Medical Code(s): J18.9 - Pneumonia, unspecified organism (2) Sepsis Current visit: Yes Status: Acute Qualifiers: Sepsis type: sepsis due to unspecified organism Sepsis acute organ dysfunction status: without acute organ dysfunction Qualified Code(s): A41.9 - Sepsis, unspecified organism Category: Medical Code(s): A41.9 - Sepsis, unspecified organism (3) Parkinson disease Current visit: No Status: Acute Category: Medical Code(s): G20 - Parkinson's disease (4) Pneumonia of both lower lobes due to methicillin resistant Staphylococcus aureus (MRSA) Current visit: Yes Status: Acute Category: Medical Code(s): J15.212 - Pneumonia due to Methicillin resistant Staphylococcus aureus (5) Dysphagia Current visit: No Status: Chronic Qualifiers: Dysphagia type: other dysphagia Qualified Code(s): R13.19 - Other dysphagia Category: Medical Code(s): R13.10 - Dysphagia, unspecified (6) Stage II pressure ulcer of buttock Current visit: Yes Status: Acute Qualifiers: Laterality: right Qualified Code(s): L89.312 - Pressure ulcer of right buttock, stage 2 Category: Medical Code(s): L89.302 - Pressure ulcer of unspecified buttock, stage 2 (7) Respiratory failure with hypoxia Current visit: Yes Status: Acute Qualifiers: Chronicity: acute Qualified Code(s): J96.01 - Acute respiratory failure with hypoxia Category: Medical Code(s): J96.91 - Respiratory failure, unspecified with hypoxia - Assessment and plan all Dx Assessment and Plan for all problems:: Rounded with Dr. Hua, all orders per Dr. Hua 1. We will restart IV Vanco 2. We will order thoracentesis with labs 3. Modified barium swallow 4. To remain inpatient
[2020-01-12 08:34] LABS: Calcium 8.3 mg/dl (8.4-10.2)
[2020-01-12 08:42] LABS: Albumin Level 3.2 g/dl (3.5-5.0); Anion Gap 12.2 mEq/L (5-15); Bilirubin,Total 0.5 mg/dl (0.2-1.3); Calcium 8.3 mg/dl (8.4-10.2); Globulin 3.3 g/dL (1.3-3.2); Total Protein,Serum 6.5 g/dl (6.3-8.2)
--- NOTE | 2020-01-12 09:04 | Pharmacy Consult Notes ---
- Pharmacy Consult Date: 01/12/20 Time: 08:59 Referring provider: DR. HERNÁNDEZ Reason for Consult:: RESTARTING VANCOMYCIN/STOPPING BACTRIM DS Allergies and ADEs:: Allergies Allergy/AdvReac Type Severity Reaction Status Date / Time hydroxyzine Allergy Unknown Verified 01/08/20 08:27 allergy reaction nylon Allergy Unknown Verified 01/08/20 08:27 allergy reaction Home Medications:: Home Medications Medication Instructions Recorded Confirmed Type Pantoprazole Sodium [Protonix 40mg 40 mg PO DAILY 09/03/18 01/08/20 History tablet] Tamsulosin HCl [Flomax 0.4mg 0.4 mg PO HS 09/03/18 01/08/20 History capsule] polyethylene glycoL 3350 [Miralax 17 gm PO DAILY 09/03/18 01/08/20 History 17gm Packet] LORazepam [Ativan 0.5mg 0.5 mg PO BID 05/21/19 01/08/20 History tablet] Oxycodone HCl [Oxycodone (IR) 5mg 5 mg PO QID 05/21/19 01/08/20 History Cap] bisacodyL [Correctol] 10 mg PO BID 08/04/19 01/08/20 History Ascorbic Acid [Vitamin C 500mg 500 mg PO DAILY 08/08/19 01/08/20 History tablet] Cyclobenzaprine HCl 5 mg PO TID 08/08/19 01/08/20 History [Cyclobenzaprine 5mg Tab] M-Vit,Tx,Iron,Mins/Calc/Folic 1 each PO DAILY 08/08/19 01/08/20 History [Therapeutic M Tablet] Potassium Chloride [Micro-K 10mEq 20 meq PO TID 08/08/19 01/08/20 History cap] Simethicone [Gas-X] 125 mg PO BID 08/08/19 01/08/20 History Zinc Sulfate [Zinc Sulfate 220mg 220 mg PO DAILY 08/08/19 01/08/20 History capsule] fentaNYL [fentaNYL 75mcg Patch] 75 mcg TD Q72H 08/08/19 01/08/20 History levETIRAcetam [Keppra] 750 mg PO BID 08/08/19 01/08/20 History OXcarbazepine [Trileptal 300mg 600 mg PO BID tab 08/11/19 01/08/20 Rx tablet] Acetaminophen [Tylenol 500mg 500 mg PO Q4HP PRN 01/08/20 01/08/20 History tablet] Atorvastatin Calcium [Atorvastatin 20 mg PO HS 01/08/20 01/08/20 History 20mg Tab] Benztropine Mesylate 2 mg PO TID 01/08/20 01/08/20 History Carbidopa/Levodopa [Sinemet 25-100 1 each PO TID 01/08/20 01/08/20 History mg Tablet] Doxepin HCl [Sinequan 10mg capsule] 10 mg PO Q8HP PRN 01/08/20 01/08/20 History Lactulose [Lactulose 10gm/15ml 30 ml PO DAILY 01/08/20 01/08/20 History Oral Soln] Menthol/Zinc Oxide [Menthol-Zinc 1 applicatio TP TID 01/08/20 01/08/20 History Oxide 0.45%-20%] OLANZapine [Olanzapine] 10 mg PO BID 01/08/20 01/08/20 History haloperidoL [Haloperidol] 10 mg PO TID 01/08/20 01/08/20 History Height: 1.88 m Weight: 94.841 kg Laboratory Results:: Laboratory Results - last 24 hr 01/11/20 16:18: Vancomycin Trough 8.5 01/12/20 08:10: WBC 11.0 H, RBC 4.46 L, Hgb 11.0 L, Hct 35.6 L, MCV 79.8 L, MCH 24.6 L, MCHC 30.8 L, RDW 14.6, Plt Count 417, MPV 7.7, Neut % (Auto) 74.0, Lymph % (Auto) 9.6 L, [place] % (Auto) 13.7 H, Eos % (Auto) 2.2, Baso % (Auto) 0.4, Neut # (Auto) 8.1 H, Lymph # (Auto) 1.1, [place] # (Auto) 1.5 H, Eos # (Auto) 0.2, Baso # (Auto) 0.0 01/12/20 08:10: Sodium 142, Potassium 3.2 L, Chloride 104, Carbon Dioxide 30, Anion Gap 11.2, BUN 12, Creatinine 0.50 L, Estimated Creat Clear 103, Estimated GFR 168, Est GFR ( Amer) 204, Glucose 149 H, Calcium 8.3 L 01/12/20 08:10: Sodium 142, Potassium 3.2 L, Chloride 103, Carbon Dioxide 30, Anion Gap 12.2, BUN 12, Creatinine 0.50 L, Estimated Creat Clear 103, Estimated GFR 168, Est GFR ( Amer) 204, Glucose 151 H, Calcium 8.3 L, Total Bilirubin 0.5, AST 69 H, ALT 18, Alkaline Phosphatase 113, Lactate Dehydrogenase 220 L, Total Protein 6.5, Albumin 3.2 L, Globulin 3.3 H, Albumin/Globulin Ratio 1.0 L Medical History: Reports:: Aneurysm (AAA), Dementia, Depression, Heart Murmur, Hyperlipidemia, Hypertension Denies:: Cancer, Diabetes Mellitus Type 1, Diabetes Mellitus Type 2 Assessment and Plan (1) HCAP (healthcare-associated pneumonia) Current visit: Yes Status: Acute Category: Medical Code(s): J18.9 - Pneumonia, unspecified organism (2) Sepsis Current visit: Yes Status: Acute Qualifiers: Sepsis type: sepsis due to unspecified organism Sepsis acute organ dysfunction status: without acute organ dysfunction Qualified Code(s): A41.9 - Sepsis, unspecified organism Category: Medical Code(s): A41.9 - Sepsis, unspecified organism (3) Parkinson disease Current visit: No Status: Acute Category: Medical Code(s): G20 - Parkinson's disease (4) Pneumonia of both lower lobes due to methicillin resistant Staphylococcus au reus (MRSA) Current visit: Yes Status: Acute Category: Medical Code(s): J15.212 - Pneumonia due to Methicillin resistant Staphylococcus aureus (5) Dysphagia Current visit: No Status: Chronic Qualifiers: Dysphagia type: other dysphagia Qualified Code(s): R13.19 - Other dysphagia Category: Medical Code(s): R13.10 - Dysphagia, unspecified (6) Stage II pressure ulcer of buttock Current visit: Yes Status: Acute Qualifiers: Laterality: right Qualified Code(s): L89.312 - Pressure ulcer of right buttock, stage 2 Category: Medical Code(s): L89.302 - Pressure ulcer of unspecified buttock, stage 2 (7) Respiratory failure with hypoxia Current visit: Yes Status: Acute Qualifiers: Chronicity: acute Qualified Code(s): J96.01 - Acute respiratory failure with hypoxia Category: Medical Code(s): J96.91 - Respiratory failure, unspecified with hypoxia - Assessment and plan all Dx Assessment and Plan for all problems:: STOPPING BACTRIM DS AND WANTS TO RESTART VANCOMYCIN AT THIS TIME. RECOMMEND RESTARTING WITH VANCOMYCIN 2250 MG Q8H AT THIS TIME. PHARMACY WILL FOLLOW DAILY AND ADJUST APPROPRIATE.
[2020-01-12 15:12] LABS: Appearance,Body Fld. Slightly hazy; RBC,Body Fluid < 10 cells/uL (< 10 X 10^3); TNC,Body Fluid 571 cells/uL (< 1000)
[2020-01-12 16:09] LABS: Mononuclear WBCs,Body Fluid 29 %; Polynuclear WBC,Body Fluid 71 %
[2020-01-13 08:08] LABS: Anion Gap 13.7 mEq/L (5-15); Calcium 8.3 mg/dl (8.4-10.2)
[2020-01-13 08:23] LABS: Basophils # 0.1 K/mm3 (0-0.2); Basophils % 0.4 % (0.1-2.0); Eosinophils # 0.2 K/mm3 (0.0-0.4); Eosinophils % 1.5 % (0.1-12.0); Hematocrit 33.7 % (42.0-52.0); Hemoglobin 10.6 g/dL (14.1-18.0); Lymphocytes # 1.1 K/mm3 (0.7-4.5); Mean Corpuscular HGB Conc 31.5 g/dL (31.8-35.4); Mean Corpuscular Volume 78.3 fl (80-94); Mean Platelet Volume 7.3 fl (7.4-10.4); Monocytes % 8.6 % (1.7-9.3); Neutrophils # 9.5 K/mm3 (1.8-7.8); Neutrophils % 80.4 % (37.0-80.0); Platelet Count 418 K/mm3 (142-424); Red Blood Count 4.31 M/mm3 (4.60-6.20); Red Cell Distribution Width 14.7 % (11.5-17.5); White Blood Count 11.8 K/mm3 (4.8-10.8)
--- NOTE | 2020-01-13 09:04 | Progress Note ---
Internal Medicine - PN: Subj *Date: 01/13/20 *Time: 09:01 Interval history: looks ok - no specific c/o and inc rr - Exam Vital signs and Labs for Last 24 Hours: Temp Pulse Resp BP Pulse Ox 98.1 F 112 H 24 164/82 H 90 L 01/13/20 08:00 01/13/20 08:00 01/13/20 08:00 01/13/20 08:00 01/13/20 08:00 Laboratory Results - last 24 hr 01/12/20 14:20: Fluid Source Thoracentesis fluid, Fluid Volume 8, Fluid Appe arance Slightly hazy, Fluid RBC (Auto) < 10, Fld Tot Nucleated Cell 571, Fld Polynuclear WBCs % 71, Fld Mononuclear WBCs % 29 01/13/20 07:30: WBC 11.8 H, RBC 4.31 L, Hgb 10.6 L, Hct 33.7 L, MCV 78.3 L, MCH 24.7 L, MCHC 31.5 L, RDW 14.7, Plt Count 418, MPV 7.3 L, Neut % (Auto) 80.4 H, Lymph % (Auto) 9.0 L, [place] % (Auto) 8.6, Eos % (Auto) 1.5, Baso % (Auto) 0.4, Neut # (Auto) 9.5 H, Lymph # (Auto) 1.1, [place] # (Auto) 1.0, Eos # (Auto) 0.2, Baso # (Auto) 0.1 01/13/20 07:30: Sodium 144, Potassium 2.7 L*, Chloride 103, Carbon Dioxide 30, Anion Gap 13.7, BUN 10, Creatinine 0.40 L, Estimated Creat Clear 104, Estimated GFR 218, Est GFR ( Amer) 264 D, Glucose 105 H D, Calcium 8.3 L 01/13/20 07:30: Vancomycin Trough 11.2 H I & O for Last 24 hours: Intake & Output 01/10/20 01/11/20 01/12/20 01/13/20 11:59 11:59 11:59 11:59 Intake Total 927 / 927 1883 / 1883 471 / 471 962 / 962 Output Total Balance 927 / 927 1883 / 1883 471 / 471 961 / 961 Weight 207 lb 3.752 oz 210 lb 1 oz 209 lb 1.418 oz 211 lb 2.011 oz Microbiology Reports for the Last 24 Hours: Microbiology 01/12/20 14:20 Pleural Fluid - Pleura,Rt Lung Gram Stain - Final 01/07/20 15:00 Blood Blood Culture - Final NO GROWTH AFTER 5 DAYS 01/07/20 15:00 Blood Blood Culture - Final NO GROWTH AFTER 5 DAYS - Constitutional no acute distress - *Routine HEENT Exam Head: Present: normocephalic Eye: Present: EOMI, PERRL ENT: Present: mucous membranes dry - *Routine Neck Exam Present: supple. Absent: JVD - *Routine Respiratory Exam Present: decreased breath sounds - *Routine Cardiovascular Exam Present: RRR, murmur - *Routine Abdominal Exam Present: soft - *Routine Extremities Exam Absent: calf tenderness - *Routine Skin Exam Present: intact - *Routine Neurological Exam Present: alert, oriented X3, CN II-XII intact - Routine Psychiatric Exam Absent: good insight Assessment and Plan (1) HCAP (healthcare-associated pneumonia) Current visit: Yes Status: Acute Category: Medical Code(s): J18.9 - Pneumonia, unspecified organism (2) Sepsis Current visit: Yes Status: Acute Qualifiers: Sepsis type: sepsis due to unspecified organism Sepsis acute organ dysfunction status: without acute organ dysfunction Qualified Code(s): A41.9 - Sepsis, unspecified organism Category: Medical Code(s): A41.9 - Sepsis, unspecified organism (3) Parkinson disease Current visit: No Status: Acute Category: Medical Code(s): G20 - Par kinson's disease (4) Pneumonia of both lower lobes due to methicillin resistant Staphylococcus aureus (MRSA) Current visit: Yes Status: Acute Category: Medical Code(s): J15.212 - Pneumonia due to Methicillin resistant Staphylococcus aureus (5) Dysphagia Current visit: No Status: Chronic Qualifiers: Dysphagia type: other dysphagia Qualified Code(s): R13.19 - Other dysphagia Category: Medical Code(s): R13.10 - Dysphagia, unspecified (6) Stage II pressure ulcer of buttock Current visit: Yes Status: Acute Qualifiers: Laterality: right Qualified Code(s): L89.312 - Pressure ulcer of right buttock, stage 2 Category: Medical Code(s): L89.302 - Pressure ulcer of unspecified buttock, stage 2 (7) Respiratory failure with hypoxia Current visit: Yes Status: Acute Qualifiers: Chronicity: acute Qualified Code(s): J96.01 - Acute respiratory failure with hypoxia Category: Medical Code(s): J96.91 - Respiratory failure, unspecified with hypoxia (8) Pleural effusion Current visit: Yes Status: Acute Category: Medical Code(s): J90 - Pleural effusion, not elsewhere classified (9) Hypokalemia Current visit: Yes Status: Acute Category: Medical Code(s): E87.6 - Hypokalemia
--- NOTE | 2020-01-13 11:49 | Pharmacy Consult Notes ---
- Pharmacy Consult Date: 01/13/20 Time: 11:48 Referring provider: DR. HERNÁNDEZ Reason for Consult:: VANCOMYCIN TROUGH LEVEL Allergies and ADEs:: Allergies Allergy/AdvReac Type Severity Reaction Status Date / Time hydroxyzine Allergy Unknown Verified 01/08/20 08:27 allergy reaction nylon Allergy Unknown Verified 01/08/20 08:27 allergy reaction Home Medications:: Home Medications Medication Instructions Recorded Confirmed Type Pantoprazole Sodium [Protonix 40mg 40 mg PO DAILY 09/03/18 01/08/20 History tablet] Tamsulosin HCl [Flomax 0.4mg 0.4 mg PO HS 09/03/18 01/08/20 History capsule] polyethylene glycoL 3350 [Miralax 17 gm PO DAILY 09/03/18 01/08/20 History 17gm Packet] LORazepam [Ativan 0.5mg 0.5 mg PO BID 05/21/19 01/08/20 History tablet] Oxycodone HCl [Oxycodone (IR) 5mg 5 mg PO QID 05/21/19 01/08/20 History Cap] bisacodyL [Correctol] 10 mg PO BID 08/04/19 01/08/20 History Ascorbic Acid [Vitamin C 500mg 500 mg PO DAILY 08/08/19 01/08/20 History tablet] Cyclobenzaprine HCl 5 mg PO TID 08/08/19 01/08/20 History [Cyclobenzaprine 5mg Tab] M-Vit,Tx,Iron,Mins/Calc/Folic 1 each PO DAILY 08/08/19 01/08/20 History [Therapeutic M Tablet] Potassium Chloride [Micro-K 10mEq 20 meq PO TID 08/08/19 01/08/20 History cap] Simethicone [Gas-X] 125 mg PO BID 08/08/19 01/08/20 History Zinc Sulfate [Zinc Sulfate 220mg 220 mg PO DAILY 08/08/19 01/08/20 History capsule] fentaNYL [fentaNYL 75mcg Patch] 75 mcg TD Q72H 08/08/19 01/08/20 History levETIRAcetam [Keppra] 750 mg PO BID 08/08/19 01/08/20 History OXcarbazepine [Trileptal 300mg 600 mg PO BID tab 08/11/19 01/08/20 Rx tablet] Acetaminophen [Tylenol 500mg 500 mg PO Q4HP PRN 01/08/20 01/08/20 History tablet] Atorvastatin Calcium [Atorvastatin 20 mg PO HS 01/08/20 01/08/20 History 20mg Tab] Benztropine Mesylate 2 mg PO TID 01/08/20 01/08/20 History Carbidopa/Levodopa [Sinemet 25-100 1 each PO TID 01/08/20 01/08/20 History mg Tablet] Doxepin HCl [Sinequan 10mg capsule] 10 mg PO Q8HP PRN 01/08/20 01/08/20 History Lactulose [Lactulose 10gm/15ml 30 ml PO DAILY 01/08/20 01/08/20 History Oral Soln] Menthol/Zinc Oxide [Menthol-Zinc 1 applicatio TP TID 01/08/20 01/08/20 History Oxide 0.45%-20%] OLANZapine [Olanzapine] 10 mg PO BID 01/08/20 01/08/20 History haloperidoL [Haloperidol] 10 mg PO TID 01/08/20 01/08/20 History Height: 1.88 m Weight: 95.765 kg Laboratory Results:: Laboratory Results - last 24 hr 01/12/20 14:20: Fluid Source Thoracentesis fluid, Fluid Volume 8, Fluid Appearance Slightly hazy, Fluid RBC (Auto) < 10, Fld Tot Nucleated Cell 571, Fld Polynuclear WBCs % 71, Fld Mononuclear WBCs % 29 01/13/20 07:30: WBC 11.8 H, RBC 4.31 L, Hgb 10.6 L, Hct 33.7 L, MCV 78.3 L, MCH 24.7 L, MCHC 31.5 L, RDW 14.7, Plt Count 418, MPV 7.3 L, Neut % (Auto) 80.4 H, Lymph % (Auto) 9.0 L, [place] % (Auto) 8.6, Eos % (Auto) 1.5, Baso % (Auto) 0.4, Neut # (Auto) 9.5 H, Lymph # (Auto) 1.1, [place] # (Auto) 1.0, Eos # (Auto) 0.2, Baso # (Auto) 0.1 01/13/20 07:30: Sodium 144, Potassium 2.7 L*, Chloride 103, Carbon Dioxide 30, Anion Gap 13.7, BUN 10, Creatinine 0.40 L, Estimated Creat Clear 104, Estimated GFR 218, Est GFR ( Amer) 264 D, Glucose 105 H D, Calcium 8.3 L 01/13/20 07:30: Vancomycin Trough 11.2 H Medical History: Reports:: Aneurysm (AAA), Dementia, Depression, Heart Murmur, Hyperlipidemia, Hypertension Denies:: Cancer, Diabetes Mellitus Type 1, Diabetes Mellitus Type 2 Assessment and Plan (1) HCAP (healthcare-associated pneumonia) Current visit: Yes Status: Acute Category: Medical Code(s): J18.9 - Pneumonia, unspecified organism (2) Sepsis Current visit: Yes Status: Acute Qualifiers: Sepsis type: sepsis due to unspecified organism Sepsis acute organ dysfunction status: without acute organ dysfunction Qualified Code(s): A41.9 - Sepsis, unspecified organism Category: Medical Code(s): A41.9 - Sepsis, unspecified organism (3) Parkinson disease Current visit: No Status: Acute Category: Medical Code(s): G20 - Parkinson's disease (4) Pneumonia of both lower lobes due to methicillin resistant Staphylococcus aureus (MRSA) Current visit: Yes Status: Acute Category: Medical Code(s): J15.212 - Pneumonia due to Methicillin resistant Staphylococcus aureus (5) Dysphagia Current visit: No Status: Chronic Qualifiers: Dysphagia type: other dysphagia Qualified Code(s): R13.19 - Other dysphagia Category: Medical Code(s): R13.10 - Dysphagia, unspecified (6) Stage II pressure ulcer of buttock Current visit: Yes Status: Acute Qualifiers: Laterality: right Qualified Code(s): L89.312 - Pressure ulcer of right buttock, stage 2 Category: Medical Code(s): L89.302 - Pressure ulcer of unspecified buttock, stage 2 (7) Respiratory failure with hypoxia Current visit: Yes Status: Acute Qualifiers: Chronicity: acute Qualified Code(s): J96.01 - Acute respiratory failure with hypoxia Category: Medical Code(s): J96.91 - Respiratory failure, unspecified with hypoxia (8) Pleural effusion Current visit: Yes Status: Acute Category: Medical Code(s): J90 - Pleural effusion, not elsewhere classified (9) Hypokalemia Current visit: Yes Status: Acute Category: Medical Code(s): E87.6 - Hypokalemia - Assessment and plan all Dx Assessment and Plan for all problems:: BASED ON VANCOMYCIN TROUGH LEVEL AND PATIENT FACTORS, RECOMMEND CONTINUING VANCOMYCIN 2250 MG IV Q8H. PHARMACY WILL CONTINUE TO MONITOR DAILY AND ADJUST APPROPRIATE.
[2020-01-14 06:42] LABS: Basophils # 0.1 K/mm3 (0-0.2); Basophils % 0.5 % (0.1-2.0); Eosinophils # 0.2 K/mm3 (0.0-0.4); Hematocrit 36.7 % (42.0-52.0); Hemoglobin 11.1 g/dL (14.1-18.0); Lymphocytes # 1.1 K/mm3 (0.7-4.5); Lymphocytes % 6.7 % (10-50); Mean Corpuscular HGB Conc 30.2 g/dL (31.8-35.4); Mean Corpuscular Volume 79.8 fl (80-94); Mean Platelet Volume 7.8 fl (7.4-10.4); Monocytes # 1.8 K/mm3 (0.1-1.0); Monocytes % 11.3 % (1.7-9.3); Neutrophils # 12.9 K/mm3 (1.8-7.8); Neutrophils % 80.6 % (37.0-80.0); Platelet Count 456 K/mm3 (142-424); Red Cell Distribution Width 14.8 % (11.5-17.5)
[2020-01-14 06:47] LABS: Anion Gap 11.9 mEq/L (5-15); Calcium 8.2 mg/dl (8.4-10.2)
[2020-01-14 08:41] LABS: Lymphocytes % 6 % (10-50); Monocytes % 14 % (2-9); Neutrophils % 80 % (42-76); Total Cells Counted 100
[2020-01-14 08:42] LABS: Hypochromasia 1+; Macrocytosis 1+
--- NOTE | 2020-01-14 09:16 | Progress Note ---
Internal Medicine - PN: Subj *Date: 01/14/20 *Time: 09:13 Interval history: doing better - sl distended abd - no vomiting Exam Vital signs and Labs for Last 24 Hours: Temp Pulse Resp BP Pulse Ox 98.0 F 105 H 22 148/85 H 92 L 01/14/20 07:46 01/14/20 07:46 01/14/20 07:46 01/14/20 07:46 01/14/20 07:46 Laboratory Results - last 24 hr 01/14/20 06:10: WBC 16.0 H D, RBC 4.60, Hgb 11.1 L, Hct 36.7 L, MCV 79.8 L, MCH 24.1 L, MCHC 30.2 L, RDW 14.8, Plt Count 456 H, MPV 7.8, Neut % (Auto) 80.6 H, Lymph % (Auto) 6.7 L, [place] % (Auto) 11.3 H, Eos % (Auto) 1.0, Baso % (Auto) 0.5, Neut # (Auto) 12.9 H, Lymph # (Auto) 1.1, [place] # (Auto) 1.8 H, Eos # (Auto) 0.2, Baso # (Auto) 0.1, Total Counted 100, Neutrophils % (Manual) 80 H, Lymphocytes % (Manual) 6 L, Monocytes % (Manual) 14 H, Platelet Estimate Normal, Hypochromasia 1+, Macrocytosis 1+ 01/14/20 06:10: Sodium 144, Potassium 2.9 L*, Chloride 103, Carbon Dioxide 32 H, Anion Gap 11.9, BUN 17 D, Creatinine 1.40 H D, Estimated Creat Clear 73, Estimated GFR 51 L, Est GFR ( Amer) 62 D, Glucose 135 H D, Calcium 8.2 L I & O for Last 24 hours: Intake & Output 01/11/20 01/12/20 01/13/20 01/14/20 11:59 11:59 11:59 11:59 Intake Total 1882 471 / 471 962 / 962 868 / 868 Output Total Balance 1882 471 / 471 961 / 961 867 / 867 Weight 210 lb 1 oz 209 lb 1.418 oz 211 lb 2.011 oz 209 lb 5 oz Microbiology Reports for the Last 24 Hours: Microbiology 01/12/20 14:20 Pleural Fluid - Pleura,Rt Lung Gram Stain - Final 01/12/20 14:20 Pleural Fluid - Pleura,Rt Lung Body Fluid Culture - Preliminary NO GROWTH AFTER 24 HOURS - Constitutional no acute distress - *Routine HEENT Exam Head: Present: normocephalic Eye: Present: EOMI, PERRL. Absent: conjunctival icterus ENT: Present: mucous membranes dry - *Routine Neck Exam Present: supple. Absent: JVD - *Routine Respiratory Exam Present: decreased breath sounds - *Routine Cardiovascular Exam Present: RRR, murmur - *Routine Abdominal Exam Present: soft, distended. Absent: tenderness - *Routine Extremities Exam Absent: edema - *Routine Skin Exam Present: intact - *Routine Neurological Exam Present: alert, CN II-XII intact - Routine Psychiatric Exam Absent: good insight Assessment and Plan (1) HCAP (healthcare-associated pneumonia) Current visit: Yes Status: Acute Category: Medical Code(s): J18.9 - Pneumonia, unspecified organism (2) Sepsis Current visit: Yes Status: Acute Qualifiers: Sepsis type: sepsis due to unspecified organism Sepsis acute organ dysfunction status: without acute organ dysfunction Qualified Code(s): A41.9 - Sepsis, unspecified organism Category: Medical Code(s): A41.9 - Sepsis, unspecified organism (3) Parkinson disease Current visit: No Status: Acute Category: Medical Code(s): G20 - Parkinson's disease (4) Pneumonia of both lower lobes due to methicillin resistant Staphylococcus aureus (MRSA) Current visit: Yes Status: Acute Category: Medical Code(s): J15.212 - Pneumonia due to Methicillin resistant Staphylococcus aureus (5) Dysphagia Current visit: No Status: Chronic Qualifiers: Dysphagia type: other dysphagia Qualified Code(s): R13.19 - Other dysphagia Category: Medical Code(s): R13.10 - Dysphagia, unspecified (6) Stage II pressure ulcer of buttock Current visit: Yes Status: Acute Qualifiers: Laterality: right Qualified Code(s): L89.312 - Pressure ulcer of right buttock, stage 2 Category: Medical Code(s): L89.302 - Pressure ulcer of unspecified buttock, stage 2 (7) Respiratory failure with hypoxia Current visit: Yes Status: Acute Qualifiers: Chronicity: acute Qualified Code(s): J96.01 - Acute respiratory failure with hypoxia Category: Medical Code(s): J96.91 - Respiratory failure, unspecified with hypoxia (8) Pleural effusion Current visit: Yes Status: Acute Category: Medical Code(s): J90 - Pleural effusion, not elsewhere classified (9) Hypokalemia Current visit: Yes Status: Acute Category: Medical Code(s): E87.6 - Hypokalemia
--- NOTE | 2020-01-14 10:30 | Pharmacy Consult Notes ---
[facility] Pharmacy VTE Monitoring - Patient Demographics Admission date: 01/14/20 Report Date: 01/14/20 Time: 10:30 Allergies/Adverse Reactions: Patient Allergies hydroxyzine Allergy (Verified 01/08/20 08:27) Unknown allergy reaction nylon Allergy (Verified 01/08/20 08:27) Unknown allergy reaction Height: 1.88 m Weight: 94.943 kg Patient Problems: Current Active Problems Pneumonia (Acute) Acute dyspnea (Acute) Hypoxemia (Acute) HCAP (healthcare-associated pneumonia) (Acute) Sepsis (Acute) Pneumonia of both lower lobes due to methicillin resistant Staphylococcus aureus (MRSA) (Acute) Stage II pressure ulcer of buttock (Acute) Respiratory failure with hypoxia (Acute) Pleural effusion (Acute) Hypokalemia (Acute) - VTE Risk Labs: VTE Related Lab Results Hgb 11.1 g/dL (14.1-18.0) L 01/14/20 06:10 Hct 36.7 % (42.0-52.0) L 01/14/20 06:10 Plt Count 456 K/mm3 (142-424) H 01/14/20 06:10 BUN 17 mg/dl (9-20) D 01/14/20 06:10 Creatinine 1.40 mg/dl (0.66-1.25) H D 01/14/20 06:10 Estimated Creat Clear 73 mL/min (50-200) 01/14/20 06:10 Was VTE Risk Assessment Performed: Yes VTE Score: 6 VTE Risk Level: Moderate Risk - Prophylaxis Pharmacologic Type: Enoxaparin (LOVENOX ORDER PLACED PER MD)
[2020-01-15 06:30] LABS: Basophils % 0.3 % (0.1-2.0); Eosinophils # 0.3 K/mm3 (0.0-0.4); Eosinophils % 2.6 % (0.1-12.0); Hematocrit 33.8 % (42.0-52.0); Hemoglobin 10.4 g/dL (14.1-18.0); Lymphocytes % 7.5 % (10-50); Mean Corpuscular HGB Conc 30.8 g/dL (31.8-35.4); Mean Corpuscular Volume 78.9 fl (80-94); Monocytes # 1.1 K/mm3 (0.1-1.0); Monocytes % 8.4 % (1.7-9.3); Neutrophils # 10.8 K/mm3 (1.8-7.8); Neutrophils % 81.2 % (37.0-80.0); Platelet Count 433 K/mm3 (142-424); Red Blood Count 4.28 M/mm3 (4.60-6.20); Red Cell Distribution Width 14.7 % (11.5-17.5); White Blood Count 13.3 K/mm3 (4.8-10.8)
[2020-01-15 06:38] LABS: Anion Gap 9.7 mEq/L (5-15); Calcium 8.1 mg/dl (8.4-10.2)
--- NOTE | 2020-01-15 08:37 | Pharmacy Consult Notes ---
- Pharmacy Consult Date: 01/15/20 Time: 08:33 Referring provider: DR. HERNÁNDEZ Reason for Consult:: VANCOMYCIN LEVELS Allergies and ADEs:: Allergies Allergy/AdvReac Type Severity Reaction Status Date / Time hydroxyzine Allergy Unknown Verified 01/08/20 08:27 allergy reaction nylon Allergy Unknown Verified 01/08/20 08:27 allergy reaction Home Medications:: Home Medications Medication Instructions Recorded Confirmed Type Pantoprazole Sodium [Protonix 40mg 40 mg PO DAILY 09/03/18 01/08/20 History tablet] Tamsulosin HCl [Flomax 0.4mg 0.4 mg PO HS 09/03/18 01/08/20 History capsule] polyethylene glycoL 3350 [Miralax 17 gm PO DAILY 09/03/18 01/08/20 History 17gm Packet] LORazepam [Ativan 0.5mg 0.5 mg PO BID 05/21/19 01/08/20 History tablet] Oxycodone HCl [Oxycodone (IR) 5mg 5 mg PO QID 05/21/19 01/08/20 History Cap] bisacodyL [Correctol] 10 mg PO BID 08/04/19 01/08/20 History Ascorbic Acid [Vitamin C 500mg 500 mg PO DAILY 08/08/19 01/08/20 History tablet] Cyclobenzaprine HCl 5 mg PO TID 08/08/19 01/08/20 History [Cyclobenzaprine 5mg Tab] M-Vit,Tx,Iron,Mins/Calc/Folic 1 each PO DAILY 08/08/19 01/08/20 History [Therapeutic M Tablet] Potassium Chloride [Micro-K 10mEq 20 meq PO TID 08/08/19 01/08/20 History cap] Simethicone [Gas-X] 125 mg PO BID 08/08/19 01/08/20 History Zinc Sulfate [Zinc Sulfate 220mg 220 mg PO DAILY 08/08/19 01/08/20 History capsule] fentaNYL [fentaNYL 75mcg Patch] 75 mcg TD Q72H 08/08/19 01/08/20 History levETIRAcetam [Keppra] 750 mg PO BID 08/08/19 01/08/20 History OXcarbazepine [Trileptal 300mg 600 mg PO BID tab 08/11/19 01/08/20 Rx tablet] Acetaminophen [Tylenol 500mg 500 mg PO Q4HP PRN 01/08/20 01/08/20 History tablet] Atorvastatin Calcium [Atorvastatin 20 mg PO HS 01/08/20 01/08/20 History 20mg Tab] Benztropine Mesylate 2 mg PO TID 01/08/20 01/08/20 History Carbidopa/Levodopa [Sinemet 25-100 1 each PO TID 01/08/20 01/08/20 History mg Tablet] Doxepin HCl [Sinequan 10mg capsule] 10 mg PO Q8HP PRN 01/08/20 01/08/20 History Lactulose [Lactulose 10gm/15ml 30 ml PO DAILY 01/08/20 01/08/20 History Oral Soln] Menthol/Zinc Oxide [Menthol-Zinc 1 applicatio TP TID 01/08/20 01/08/20 History Oxide 0.45%-20%] OLANZapine [Olanzapine] 10 mg PO BID 01/08/20 01/08/20 History haloperidoL [Haloperidol] 10 mg PO TID 01/08/20 01/08/20 History Height: 1.88 m Weight: 95.033 kg Laboratory Results:: Laboratory Results - last 24 hr 01/12/20 14:20: Fluid Albumin 1.9 01/12/20 14:20: Fluid Glucose 93, Fluid Total Protein 3.9, Fluid LDH 720 01/14/20 06:10: Total Counted 100, Neutrophils % (Manual) 80 H, Lymphocytes % (Manual) 6 L, Monocytes % (Manual) 14 H, Platelet Estimate Normal, Hypochromasia 1+, Macrocytosis 1+ 01/14/20 16:30: Vancomycin Trough 39.0 H 01/15/20 06:15: WBC 13.3 H, RBC 4.28 L, Hgb 10.4 L, Hct 33.8 L, MCV 78.9 L, MCH 24.3 L, MCHC 30.8 L, RDW 14.7, Plt Count 433 H, MPV 7.0 L, Neut % (Auto) 81.2 H, Lymph % (Auto) 7.5 L, [place] % (Auto) 8.4, Eos % (Auto) 2.6, Baso % (Auto) 0.3, Neut # (Auto) 10.8 H, Lymph # (Auto) 1.0, [place] # (Auto) 1.1 H, Eos # (Auto) 0.3, Baso # (Auto) 0.0 01/15/20 06:15: Sodium 143, Potassium 2.7 L*, Chloride 106, Carbon Dioxide 30, Anion Gap 9.7, BUN 23 H D, Creatinine 2.30 H D, Estimated Creat Clear 45, Estimated GFR 29 L, Est GFR ( Amer) 35 L D, Glucose 109 H, Calcium 8.1 L 01/15/20 06:15: Vancomycin Trough 36.0 H Medical History: Reports:: Aneurysm (AAA), Dementia, Depression, Heart Murmur, Hyperlipidemia, Hypertension Denies:: Cancer, Diabetes Mellitus Type 1, Diabetes Mellitus Type 2 Assessment and Plan (1) HCAP (healthcare-associated pneumonia) Current visit: Yes Status: Acute Category: Medical Code(s): J18.9 - Pneumonia, unspecified organism (2) Sepsis Current visit: Yes Status: Acute Qualifiers: Sepsis type: sepsis due to unspecified organism Sepsis acute organ dysfunction status: without acute organ dysfunction Qualified Code(s): A41.9 - Sepsis, unspecified organism Category: Medical Code(s): A41.9 - Sepsis, unspecified organism (3) Parkinson disease Current visit: No Status: Acute Category: Medical Code(s): G20 - Parkinson's disease (4) Pneumonia of both lower lobes due to methicillin resistant Staphylococcus aureus (MRSA) Current visit: Yes Status: Acute Category: Medical Code(s): J15.212 - Pneumonia due to Methicillin resistant Staphylococcus aureus (5) Dysphagia Current visit: No Status: Chronic Qualifiers: Dysphagia type: other dysphagia Qualified Code(s): R13.19 - Other dysphagia Category: Medical Code(s): R13.10 - Dysphagia, unspecified (6) Stage II pressure ulcer of buttock Current visit: Yes Status: Acute Qualifiers: Laterality: right Qualified Code(s): L89.312 - Pressure ulcer of right buttock, stage 2 Category: Medical Code(s): L89.302 - Pressure ulcer of unspecified buttock, stage 2 (7) Respiratory failure with hypoxia Current visit: Yes Status: Acute Qualifiers: Chronicity: acute Qualified Code(s): J96.01 - Acute respiratory failure with hypoxia Category: Medical Code(s): J96.91 - Respiratory failure, unspecified with hypoxia (8) Pleural effusion Current visit: Yes Status: Acute Category: Medical Code(s): J90 - Pleural effusion, not elsewhere classified (9) Hypokalemia Current visit: Yes Status: Acute Category: Medical Code(s): E87.6 - Hypokalemia - Assessment and plan all Dx Assessment and Plan for all problems:: PATIENT'S VANCOMYCIN TROUGH WAS 39.0 MCG/ML YESTERDAY EVENING. DOSE WAS HELD AND TROUGH LEVEL REDRAWN THIS AM AT 0615. VANCOMYCIN LEVEL HAD DROPPED TO 36.0 MCG/ML. PREVIOUS TROUGH LEVEL ON 01/13/20 WAS 11.2 MCG/ML AFTER 3 DOSES OF VANCOMYCIN 2250 MG Q8H. OBTAINED TROUGH LEVEL BECAUSE SRCR HAD INCREASED FROM 0.4 MG/DL TO 1.4 MG/DL IN 24 HRS. SRCR LEVEL THIS AM WAS 2.3 MG/DL. CONTINUE TO HOLD VANCOMYCIN DOSE AND WILL OBTAIN TROUGH LEVEL AGAIN IN THE AM.
--- NOTE | 2020-01-15 09:13 | Progress Note ---
Internal Medicine - PN: Subj *Date: 01/15/20 *Time: 09:10 Interval history: pt more sedated this am - inc bun/creat and low k - Exam Vital signs and Labs for Last 24 Hours: Temp Pulse Resp BP Pulse Ox 99.5 F 95 H 20 160/86 H 92 L 01/15/20 07:37 01/15/20 07:37 01/15/20 07:37 01/15/20 07:37 01/15/20 07:37 Laboratory Results - last 24 hr 01/12/20 14:20: Fluid Albumin 1.9 01/12/20 14:20: Fluid Glucose 93, Fluid Total Protein 3.9, Fluid LDH 720 01/14/20 16:30: Vancomycin Trough 39.0 H 01/15/20 06:15: WBC 13.3 H, RBC 4.28 L, Hgb 10.4 L, Hct 33.8 L, MCV 78.9 L, MCH 24.3 L, MCHC 30.8 L, RDW 14.7, Plt Count 433 H, MPV 7.0 L, Neut % (Auto) 81.2 H, Lymph % (Auto) 7.5 L, [place] % (Auto) 8.4, Eos % (Auto) 2.6, Baso % (Auto) 0.3, Neut # (Auto) 10.8 H, Lymph # (Auto) 1.0, [place] # (Auto) 1.1 H, Eos # (Auto) 0.3, Baso # (Auto) 0.0 01/15/20 06:15: Sodium 143, Potassium 2.7 L*, Chloride 106, Carbon Dioxide 30, Anion Gap 9.7, BUN 23 H D, Creatinine 2.30 H D, Estimated Creat Clear 45, Estimated GFR 29 L, Est GFR ( Amer) 35 L D, Glucose 109 H, Calcium 8.1 L 01/15/20 06:15: Vancomycin Trough 36.0 H I & O for Last 24 hours: Intake & Output 01/12/20 01/13/20 01/14/20 01/15/20 11:59 11:59 11:59 11:59 Intake Total 471 / 471 962 / 962 868 / 868 1717 / 1717 Output Total Balance 471 / 471 961 / 961 867 / 867 1716 / 1716 Weight 209 lb 1.418 oz 211 lb 2.011 oz 209 lb 5 oz 209 lb 8.19 oz Microbiology Reports for the Last 24 Hours: Microbiology 01/12/20 14:20 Pleural Fluid - Pleura,Rt Lung Gram Stain - Final 01/12/20 14:20 Pleural Fluid - Pleura,Rt Lung Body Fluid Culture - Preliminary NO GROWTH AFTER 48 HOURS - Constitutional no acute distress - *Routine HEENT Exam Head: Present: normocephalic Eye: Present: EOMI, PERRL ENT: Present: mucous membranes dry - *Routine Neck Exam Present: supple. Absent: JVD - *Routine Respiratory Exam Present: decreased breath sounds - *Routine Cardiovascular Exam Present: RRR, murmur - *Routine Abdominal Exam Present: soft - *Routine Extremities Exam Absent: calf tenderness - *Routine Skin Exam Present: intact - *Routine Neurological Exam Present: alert, CN II-XII intact - Routine Psychiatric Exam Present: unable to assess Assessment and Plan (1) HCAP (healthcare-associated pneumonia) Current visit: Yes Status: Acute Category: Medical Code(s): J18.9 - Pneumonia, unspecified organism (2) Sepsis Current visit: Yes Status: Acute Qualifiers: Sepsis type: sepsis due to unspecified organism Sepsis acute organ dysfunction status: without acute organ dysfunction Qualified Code(s): A41.9 - Sepsis, unspecified organism Category: Medical Code(s): A41.9 - Sepsis, unspecified organism (3) Parkinson disease Current visit: No Status: Acute Category: Medical Code(s): G20 - Parkinson's disease (4) Pneumonia of both lower lobes due to methicillin resistant Staphylococcus aureus (MRSA) Current visit: Yes Status: Acute Category: Medical Code(s): J15.212 - Pneumonia due to Methicillin resistant Staphylococcus aureus (5) Dysphagia Current visit: No Status: Chronic Qualifiers: Dysphagia type: other dysphagia Qualified Code(s): R13.19 - Other dysphagia Category: Medical Code(s): R13.10 - Dysphagia, unspecified (6) Stage II pressure ulcer of buttock Current visit: Yes Status: Acute Qualifiers: Laterality: right Qualified Code(s): L89.312 - Pressure ulcer of right buttock, stage 2 Category: Medical Code(s): L89.302 - Pressure ulcer of unspecified buttock, stage 2 (7) Respiratory failure with hypoxia Current visit: Yes Status: Acute Qualifiers: Chronicity: acute Qualified Code(s): J96.01 - Acute respiratory failure with hypoxia Category: Medical Code(s): J96.91 - Respiratory failure, unspecified with hypoxia (8) Pleural effusion Current visit: Yes Status: Acute Category: Medical Code(s): J90 - Pleural effusion, not elsewhere classified (9) Hypokalemia Current visit: Yes Status: Acute Category: Medical Code(s): E87.6 - Hypokalemia (10) MARY JANE (acute kidney injury) Current visit: Yes Status: Acute Category: Medical Code(s): N17.9 - Acute kidney failure, unspecified
[2020-01-15 22:35] LABS: Anion Gap 8.9 mEq/L (5-15); Calcium 7.8 mg/dl (8.4-10.2)
[2020-01-16 06:42] LABS: Anion Gap 7.5 mEq/L (5-15); Calcium 7.7 mg/dl (8.4-10.2)
[2020-01-16 06:58] LABS: Basophils % 0.3 % (0.1-2.0); Eosinophils # 0.3 K/mm3 (0.0-0.4); Eosinophils % 2.4 % (0.1-12.0); Hematocrit 31.4 % (42.0-52.0); Hemoglobin 9.5 g/dL (14.1-18.0); Lymphocytes % 7.9 % (10-50); Mean Corpuscular HGB Conc 30.2 g/dL (31.8-35.4); Mean Corpuscular Volume 79.2 fl (80-94); Neutrophils # 10.1 K/mm3 (1.8-7.8); Neutrophils % 81.4 % (37.0-80.0); Platelet Count 437 K/mm3 (142-424); Red Blood Count 3.97 M/mm3 (4.60-6.20); Red Cell Distribution Width 14.8 % (11.5-17.5); White Blood Count 12.4 K/mm3 (4.8-10.8)
--- NOTE | 2020-01-16 09:24 | Progress Note ---
Internal Medicine - PN: Subj *Date: 01/16/20 *Time: 10:22 Interval history: 64-year-old male patient sitting up in bed, he reports that he is feeling better. He still does not feed self sufficient amounts or consume enough liquids. Speech we will attempt another modified barium swallow, he has been lethargic . Will D/C all psych meds and attempt to correct patient's lethargy. BUN/Creat increasing Exam Vital signs and Labs for Last 24 Hours: Temp Pulse Resp BP Pulse Ox 98.4 F 90 24 152/87 H 92 L 01/16/20 08:00 01/16/20 08:00 01/16/20 08:00 01/16/20 08:00 01/16/20 08:00 Laboratory Results - last 24 hr 01/15/20 22:20: Sodium 141, Potassium 2.9 L*, Chloride 107, Carbon Dioxide 28, Anion Gap 8.9, BUN 26 H, Creatinine 2.10 H, Estimated Creat Clear 49, Estimated GFR 32 L, Est GFR ( Amer) 39 L, Glucose 102 H, Calcium 7.8 L 01/16/20 06:20: WBC 12.4 H, RBC 3.97 L, Hgb 9.5 L, Hct 31.4 L, MCV 79.2 L, MCH 23.9 L, MCHC 30.2 L, RDW 14.8, Plt Count 437 H, MPV 7.0 L, Neut % (Auto) 81.4 H, Lymph % (Auto) 7.9 L, [place] % (Auto) 8.0, Eos % (Auto) 2.4, Baso % (Auto) 0.3, Neut # (Auto) 10.1 H, Lymph # (Auto) 1.0, [place] # (Auto) 1.0, Eos # (Auto) 0.3, Baso # (Auto) 0.0 01/16/20 06:20: Sodium 143, Potassium 2.5 L*, Chloride 108 H, Carbon Dioxide 30, Anion Gap 7.5, BUN 23 H, Creatinine 2.10 H, Estimated Creat Clear 49, Estimated GFR 32 L, Est GFR ( Amer) 39 L, Glucose 94, Calcium 7.7 L 01/16/20 06:20: Vancomycin Trough 21.5 H I & O for Last 24 hours: Intake & Output 01/13/20 01/14/20 01/15/20 01/16/20 23:59 23:59 23:59 23:59 Intake Total 1610 / 1610 1717 / 1717 3100 / 3100 4395 / 4395 Output Total / Balance 1610 / 1610 1715 / 1715 3100 / 3100 4395 / 4395 Weight 211 lb 2.011 oz 209 lb 5 oz 209 lb 8.19 oz 209 lb 9 oz Microbiology Reports for the Last 24 Hours: Microbiology 01/12/20 14:20 Pleural Fluid - Pleura,Rt Lung Gram Stain - Final 01/12/20 14:20 Pleural Fluid - Pleura,Rt Lung Body Fluid Culture - Preliminary NO GROWTH AFTER 72 HOURS - Constitutional no acute distress - *Routine HEENT Exam Head: Present: normocephalic, atraumatic. Absent: tenderness of temporal artery Eye: Present: EOMI, normal accommodation. Absent: periorbital tenderness ENT: Present: mucous membranes dry. Absent: sinus tenderness - *Routine Neck Exam Present: supple, trachea midline. Absent: JVD, tracheal deviation - *Routine Respiratory Exam Present: rhonchi, diminished air movement. Absent: accessory muscle use - *Routine Cardiovascular Exam Present: RRR, murmur - *Routine Abdominal Exam Present: soft, normoactive bowel sounds, distended. Absent: tenderness, firm - *Routine Extremities Exam Present: full ROM, pulses intact. Absent: calf tenderness - Routine Back/Spine/Pelvis Exam Back/Spine: Present: full ROM. Absent: CVA tenderness - *Routine Skin Exam Present: intact - *Routine Neurological Exam Present: alert, CN II-XII intact - Routine Psychiatric Exam Present: normal affect Assessment and Plan (1) HCAP (healthcare-associated pneumonia) Current visit: Yes Status: Acute Category: Medical Code(s): J18.9 - Pneumonia, unspecified organism (2) Sepsis Current visit: Yes Status: Acute Qualifiers: Sepsis type: sepsis due to unspecified organism Sepsis acute organ dysfunction status: without acute organ dysfunction Qualified Code(s): A41.9 - Sepsis, unspecified organism Category: Medical Code(s): A41.9 - Sepsis, unspecified organism (3) Parkinson disease Current visit: No Status: Acute Category: Medical Code(s): G20 - Parkinson's disease (4) Pneumonia of both lower lobes due to methicillin resistant Staphylococcus aureus (MRSA) Current visit: Yes Status: Acute Category: Medical Code(s): J15.212 - Pneumonia due to Methicillin resistant Staphylococcus aureus (5) Dysphagia Current visit: No Status: Chronic Qualifiers: Dysphagia type: other dysphagia Qualified Code(s): R13.19 - Other dysphagia Category: Medical Code(s): R13.10 - Dysphagia, unspecified (6) Stage II pressure ulcer of buttock Current visit: Yes Status: Acute Qualifiers: Laterality: right Qualified Code(s): L89.312 - Pressure ulcer of right buttock, stage 2 Category: Medical Code(s): L89.302 - Pressure ulcer of unspecified buttock, stage 2 (7) Respiratory failure with hypoxia Current visit: Yes Status: Acute Qualifiers: Chronicity: acute Qualified Code(s): J96.01 - Acute respiratory failure with hypoxia Category: Medical Code(s): J96.91 - Respiratory failure, unspecified with hypoxia (8) Pleural effusion Current visit: Yes Status: Acute Category: Medical Code(s): J90 - Pleural effusion, not elsewhere classified (9) Hypokalemia Current visit: Yes Status: Acute Category: Medical Code(s): E87.6 - Hypokalemia (10) MARY JANE (acute kidney injury) Current visit: Yes Status: Acute Category: Medical Code(s): N17.9 - Acute kidney failure, unspecified - Assessment and plan all Dx Assessment and Plan for all problems:: Rounded with Dr. Hua, all orders per Dr. Hua 1. Chest CT today 2. Blood cultures x2 3. Stop all psych meds 4. BMP at 1300 today 5. Will cont IVF The patient's infection will respond to the chosen ABx?: Yes Is the patient receiving the right drug, dose, and route?: Yes Could a more targeted ABx be ordered?: No
[2020-01-16 13:36] LABS: Anion Gap 8.7 mEq/L (5-15); Calcium 7.5 mg/dl (8.4-10.2)
--- NOTE | 2020-01-16 13:40 | Pharmacy Consult Notes ---
- Pharmacy Consult Date: 01/16/20 Time: 13:37 Referring provider: DR. HERNÁNDEZ Reason for Consult:: VANCOMYCIN TROUGH LEVEL Allergies and ADEs:: Allergies Allergy/AdvReac Type Severity Reaction Status Date / Time hydroxyzine Allergy Unknown Verified 01/08/20 08:27 allergy reaction nylon Allergy Unknown Verified 01/08/20 08:27 allergy reaction Home Medications:: Home Medications Medication Instructions Recorded Confirmed Type Pantoprazole Sodium [Protonix 40mg 40 mg PO DAILY 09/03/18 01/08/20 History tablet] Tamsulosin HCl [Flomax 0.4mg 0.4 mg PO HS 09/03/18 01/08/20 History capsule] polyethylene glycoL 3350 [Miralax 17 gm PO DAILY 09/03/18 01/08/20 History 17gm Packet] LORazepam [Ativan 0.5mg 0.5 mg PO BID 05/21/19 01/08/20 History tablet] Oxycodone HCl [Oxycodone (IR) 5mg 5 mg PO QID 05/21/19 01/08/20 History Cap] bisacodyL [Correctol] 10 mg PO BID 08/04/19 01/08/20 History Ascorbic Acid [Vitamin C 500mg 500 mg PO DAILY 08/08/19 01/08/20 History tablet] Cyclobenzaprine HCl 5 mg PO TID 08/08/19 01/08/20 History [Cyclobenzaprine 5mg Tab] M-Vit,Tx,Iron,Mins/Calc/Folic 1 each PO DAILY 08/08/19 01/08/20 History [Therapeutic M Tablet] Potassium Chloride [Micro-K 10mEq 20 meq PO TID 08/08/19 01/08/20 History cap] Simethicone [Gas-X] 125 mg PO BID 08/08/19 01/08/20 History Zinc Sulfate [Zinc Sulfate 220mg 220 mg PO DAILY 08/08/19 01/08/20 History capsule] fentaNYL [fentaNYL 75mcg Patch] 75 mcg TD Q72H 08/08/19 01/08/20 History levETIRAcetam [Keppra] 750 mg PO BID 08/08/19 01/08/20 History OXcarbazepine [Trileptal 300mg 600 mg PO BID tab 08/11/19 01/08/20 Rx tablet] Acetaminophen [Tylenol 500mg 500 mg PO Q4HP PRN 01/08/20 01/08/20 History tablet] Atorvastatin Calcium [Atorvastatin 20 mg PO HS 01/08/20 01/08/20 History 20mg Tab] Benztropine Mesylate 2 mg PO TID 01/08/20 01/08/20 History Carbidopa/Levodopa [Sinemet 25-100 1 each PO TID 01/08/20 01/08/20 History mg Tablet] Doxepin HCl [Sinequan 10mg capsule] 10 mg PO Q8HP PRN 01/08/20 01/08/20 History Lactulose [Lactulose 10gm/15ml 30 ml PO DAILY 01/08/20 01/08/20 History Oral Soln] Menthol/Zinc Oxide [Menthol-Zinc 1 applicatio TP TID 01/08/20 01/08/20 History Oxide 0.45%-20%] OLANZapine [Olanzapine] 10 mg PO BID 01/08/20 01/08/20 History haloperidoL [Haloperidol] 10 mg PO TID 01/08/20 01/08/20 History Height: 1.88 m Weight: 95.056 kg Laboratory Results:: Laboratory Results - last 24 hr 01/15/20 22:20: Sodium 141, Potassium 2.9 L*, Chloride 107, Carbon Dioxide 28, Anion Gap 8.9, BUN 26 H, Creatinine 2.10 H, Estimated Creat Clear 49, Estimated GFR 32 L, Est GFR ( Amer) 39 L, Glucose 102 H, Calcium 7.8 L 01/16/20 06:20: WBC 12.4 H, RBC 3.97 L, Hgb 9.5 L, Hct 31.4 L, MCV 79.2 L, MCH 23.9 L, MCHC 30.2 L, RDW 14.8, Plt Count 437 H, MPV 7.0 L, Neut % (Auto) 81.4 H, Lymph % (Auto) 7.9 L, [place] % (Auto) 8.0, Eos % (Auto) 2.4, Baso % (Auto) 0.3, Neut # (Auto) 10.1 H, Lymph # (Auto) 1.0, [place] # (Auto) 1.0, Eos # (Auto) 0.3, Baso # (Auto) 0.0 01/16/20 06:20: Sodium 143, Potassium 2.5 L*, Chloride 108 H, Carbon Dioxide 30, Anion Gap 7.5, BUN 23 H, Creatinine 2.10 H, Estimated Creat Clear 49, Estimated GFR 32 L, Est GFR ( Amer) 39 L, Glucose 94, Calcium 7.7 L 01/16/20 06:20: Vancomycin Trough 21.5 H Medical History: Reports:: Aneurysm (AAA), Dementia, Depression, Heart Murmur, Hyperlipidemia, Hypertension Denies:: Cancer, Diabetes Mellitus Type 1, Diabetes Mellitus Type 2 Assessment and Plan (1) HCAP (healthcare-associated pneumonia) Current visit: Yes Status: Acute Category: Medical Code(s): J18.9 - Pneumonia, unspecified organism (2) Sepsis Current visit: Yes Status: Acute Qualifiers: Sepsis type: sepsis due to unspecified organism Sepsis acute organ dysfunction status: without acute organ dysfunction Qualified Code(s): A41.9 - Sepsis, unspecified organism Category: Medical Code(s): A41.9 - Sepsis, unspecified organism (3) Parkinson disease Current visit: No Status: Acute Category: Medical Code(s): G20 - Parkinson's disease (4) Pneumonia of both lower lobes due to methicillin resistant Staphylococcus aureus (MRSA) Current visit: Yes Status: Acute Category: Medical Code(s): J15.212 - Pneumonia due to Methicillin resistant Staphylococcus aureus (5) Dysphagia Current visit: No Status: Chronic Qualifiers: Dysphagia type: other dysphagia Qualified Code(s): R13.19 - Other dysphagia Category: Medical Code(s): R13.10 - Dysphagia, unspecified (6) Stage II pressure ulcer of buttock Current visit: Yes Status: Acute Qualifiers: Laterality: right Qualified Code(s): L89.312 - Pressure ulcer of right buttock, stage 2 Category: Medical Code(s): L89.302 - Pressure ulcer of unspecified buttock, stage 2 (7) Respiratory failure with hypoxia Current visit: Yes Status: Acute Qualifiers: Chronicity: acute Qualified Code(s): J96.01 - Acute respiratory failure with hypoxia Category: Medical Code(s): J96.91 - Respiratory failure, unspecified with hypoxia (8) Pleural effusion Current visit: Yes Status: Acute Category: Medical Code(s): J90 - Pleural effusion, not elsewhere classified (9) Hypokalemia Current visit: Yes Status: Acute Category: Medical Code(s): E87.6 - Hypokalemia (10) MARY JANE (acute kidney injury) Current visit: Yes Status: Acute Category: Medical Code(s): N17.9 - Acute kidney failure, unspecified - Assessment and plan all Dx Assessment and Plan for all problems:: VANCOMYCIN TROUGH LEVEL IS STILL ELEVATED THIS MORNING. RECOMMEND HOLDING DOSE TODAY AND WILL RECHECK VANCOMYCIN TROUGH LEVEL TOMORROW MORNING. CREATININE HAS DECREASED FROM 2.3 TO 2.1 SINCE YESTERDAY.
--- NOTE | 2020-01-17 08:58 | Progress Note ---
Internal Medicine - PN: Subj *Date: 01/17/20 *Time: 09:27 Interval history: 84-year-old male patient sitting up in bed, he is more alert today. Patient failed modified barium swallow yesterday more alert today will attempt repeat. Physical therapy in the room getting patient up to chair with his assistance Exam Vital signs and Labs for Last 24 Hours: Temp Pulse Resp BP Pulse Ox 99.1 F 80 18 163/98 H 97 01/17/20 08:00 01/17/20 08:00 01/17/20 08:00 01/17/20 08:00 01/17/20 08:00 Laboratory Results - last 24 hr 01/16/20 12:57: Sodium 147 H, Potassium 2.7 L*, Chloride 111 H, Carbon Dioxide 30, Anion Gap 8.7, BUN 22 H, Creatinine 2.00 H, Estimated Creat Clear 51, Estimated GFR 34 L, Est GFR ( Amer) 41 L, Glucose 84, Calcium 7.5 L I & O for Last 24 hours: Intake & Output 01/14/20 01/15/20 01/16/20 01/17/20 23:59 23:59 23:59 23:59 Intake Total 1717 / 1717 3100 / 3100 7395 / 7395 2783.667 / 2783.667 Output Total 2 / 2 Balance 1715 / 1715 3100 / 3100 7395 / 7395 2783.667 / 2783.667 Weight 209 lb 5 oz 209 lb 8.19 oz 209 lb 9 oz 203 lb 8 oz Microbiology Reports for the Last 24 Hours: Microbiology 01/12/20 14:20 Pleural Fluid - Pleura,Rt Lung Gram Stain - Final 01/12/20 14:20 Pleural Fluid - Pleura,Rt Lung Body Fluid Culture - Preliminary NO GROWTH AFTER 4 DAYS - Constitutional no acute distress - *Routine HEENT Exam Head: Present: normocephalic, atraumatic Eye: Present: EOMI, PERRL, normal accommodation ENT: Present: mucous membranes dry - *Routine Neck Exam Present: supple, full ROM, trachea midline, tracheal deviation. Absent: JVD Comments: Tracheostomy - *Routine Respiratory Exam Present: rales. Absent: accessory muscle use - *Routine Cardiovascular Exam Present: RRR, murmur - *Routine Abdominal Exam Present: soft, normoactive bowel sounds, distended. Absent: tenderness, firm - *Routine Extremities Exam Present: full ROM, pulses intact. Absent: calf tenderness - Routine Back/Spine/Pelvis Exam Back/Spine: Present: full ROM. Absent: CVA tenderness - *Routine Skin Exam Present: intact - *Routine Neurological Exam Present: alert, CN II-XII intact Assessment and Plan (1) HCAP (healthcare-associated pneumonia) Current visit: Yes Status: Acute Category: Medical Code(s): J18.9 - Pneumonia, unspecified organism (2) Sepsis Current visit: Yes Status: Acute Qualifiers: Sepsis type: sepsis due to unspecified organism Sepsis acute organ dysfunction status: without acute organ dysfunction Qualified Code(s): A41.9 - Sepsis, unspecified organism Category: Medical Code(s): A41.9 - Sepsis, unspecified organism (3) Parkinson disease Current visit: No Status: Acute Category: Medical Code(s): G20 - P arkinson's disease (4) Pneumonia of both lower lobes due to methicillin resistant Staphylococcus aureus (MRSA) Current visit: Yes Status: Acute Category: Medical Code(s): J15.212 - Pneumonia due to Methicillin resistant Staphylococcus aureus (5) Dysphagia Current visit: No Status: Chronic Qualifiers: Dysphagia type: other dysphagia Qualified Code(s): R13.19 - Other dysphagia Category: Medical Code(s): R13.10 - Dysphagia, unspecified (6) Stage II pressure ulcer of buttock Current visit: Yes Status: Acute Qualifiers: Laterality: right Qualified Code(s): L89.312 - Pressure ulcer of right buttock, stage 2 Category: Medical Code(s): L89.302 - Pressure ulcer of unspecified buttock, stage 2 (7) Respiratory failure with hypoxia Current visit: Yes Status: Acute Qualifiers: Chronicity: acute Qualified Code(s): J96.01 - Acute respiratory failure with hypoxia Category: Medical Code(s): J96.91 - Respiratory failure, unspecified with hypoxia (8) Pleural effusion Current visit: Yes Status: Acute Category: Medical Code(s): J90 - Pleural effusion, not elsewhere classified (9) Hypokalemia Current visit: Yes Status: Acute Category: Medical Code(s): E87.6 - Hypokalemia (10) MARY JANE (acute kidney injury) Current visit: Yes Status: Acute Category: Medical Code(s): N17.9 - Acute kidney failure, unspecified - Assessment and plan all Dx Assessment and Plan for all problems:: Rounded with rounded with Dr. Hua, all orders per Dr. Hua 1. We will redo modified barium swallow today as patient is more alert
[2020-01-17 10:08] LABS: Basophils % 0.3 % (0.1-2.0); Eosinophils # 0.2 K/mm3 (0.0-0.4); Eosinophils % 1.9 % (0.1-12.0); Hematocrit 34.6 % (42.0-52.0); Hemoglobin 10.6 g/dL (14.1-18.0); Lymphocytes % 7.8 % (10-50); Mean Corpuscular HGB Conc 30.7 g/dL (31.8-35.4); Mean Corpuscular Volume 80.3 fl (80-94); Monocytes # 0.8 K/mm3 (0.1-1.0); Monocytes % 6.5 % (1.7-9.3); Neutrophils # 10.1 K/mm3 (1.8-7.8); Neutrophils % 83.4 % (37.0-80.0); Platelet Count 460 K/mm3 (142-424); Red Blood Count 4.31 M/mm3 (4.60-6.20); Red Cell Distribution Width 14.8 % (11.5-17.5); White Blood Count 12.1 K/mm3 (4.8-10.8)
[2020-01-17 10:11] LABS: Anion Gap 13.7 mEq/L (5-15); Calcium 7.8 mg/dl (8.4-10.2)
[2020-01-17 10:47] LABS: Lymphocytes % 9 % (10-50); Monocytes % 3 % (2-9); Neutrophils % 88 % (42-76); Total Cells Counted 100
[2020-01-17 10:48] LABS: Hypochromasia 1+
--- NOTE | 2020-01-17 11:20 | Pharmacy Consult Notes ---
- Pharmacy Consult Date: 01/17/20 Time: 11:15 Referring provider: DR. HERNÁNDEZ Reason for Consult:: VANCOMYCIN TROUGH LEVEL/DOSING Allergies and ADEs:: Allergies Allergy/AdvReac Type Severity Reaction Status Date / Time hydroxyzine Allergy Unknown Verified 01/08/20 08:27 allergy reaction nylon Allergy Unknown Verified 01/08/20 08:27 allergy reaction Home Medications:: Home Medications Medication Instructions Recorded Confirmed Type Pantoprazole Sodium [Protonix 40mg 40 mg PO DAILY 09/03/18 01/08/20 History tablet] Tamsulosin HCl [Flomax 0.4mg 0.4 mg PO HS 09/03/18 01/08/20 History capsule] polyethylene glycoL 3350 [Miralax 17 gm PO DAILY 09/03/18 01/08/20 History 17gm Packet] LORazepam [Ativan 0.5mg 0.5 mg PO BID 05/21/19 01/08/20 History tablet] Oxycodone HCl [Oxycodone (IR) 5mg 5 mg PO QID 05/21/19 01/08/20 History Cap] bisacodyL [Correctol] 10 mg PO BID 08/04/19 01/08/20 History Ascorbic Acid [Vitamin C 500mg 500 mg PO DAILY 08/08/19 01/08/20 History tablet] Cyclobenzaprine HCl 5 mg PO TID 08/08/19 01/08/20 History [Cyclobenzaprine 5mg Tab] M-Vit,Tx,Iron,Mins/Calc/Folic 1 each PO DAILY 08/08/19 01/08/20 History [Therapeutic M Tablet] Potassium Chloride [Micro-K 10mEq 20 meq PO TID 08/08/19 01/08/20 History cap] Simethicone [Gas-X] 125 mg PO BID 08/08/19 01/08/20 History Zinc Sulfate [Zinc Sulfate 220mg 220 mg PO DAILY 08/08/19 01/08/20 History capsule] fentaNYL [fentaNYL 75mcg Patch] 75 mcg TD Q72H 08/08/19 01/08/20 History levETIRAcetam [Keppra] 750 mg PO BID 08/08/19 01/08/20 History OXcarbazepine [Trileptal 300mg 600 mg PO BID tab 08/11/19 01/08/20 Rx tablet] Acetaminophen [Tylenol 500mg 500 mg PO Q4HP PRN 01/08/20 01/08/20 History tablet] Atorvastatin Calcium [Atorvastatin 20 mg PO HS 01/08/20 01/08/20 History 20mg Tab] Benztropine Mesylate 2 mg PO TID 01/08/20 01/08/20 History Carbidopa/Levodopa [Sinemet 25-100 1 each PO TID 01/08/20 01/08/20 History mg Tablet] Doxepin HCl [Sinequan 10mg capsule] 10 mg PO Q8HP PRN 01/08/20 01/08/20 History Lactulose [Lactulose 10gm/15ml 30 ml PO DAILY 01/08/20 01/08/20 History Oral Soln] Menthol/Zinc Oxide [Menthol-Zinc 1 applicatio TP TID 01/08/20 01/08/20 History Oxide 0.45%-20%] OLANZapine [Olanzapine] 10 mg PO BID 01/08/20 01/08/20 History haloperidoL [Haloperidol] 10 mg PO TID 01/08/20 01/08/20 History Height: 1.88 m Weight: 92.306 kg Laboratory Results:: Laboratory Results - last 24 hr 01/16/20 12:57: Sodium 147 H, Potassium 2.7 L*, Chloride 111 H, Carbon Dioxide 30, Anion Gap 8.7, BUN 22 H, Creatinine 2.00 H, Estimated Creat Clear 51, Estimated GFR 34 L, Est GFR ( Amer) 41 L, Glucose 84, Calcium 7.5 L 01/17/20 07:45: Vancomycin Trough 12.6 H 01/17/20 07:45: WBC 12.1 H, RBC 4.31 L, Hgb 10.6 L, Hct 34.6 L, MCV 80.3, MCH 24.7 L, MCHC 30.7 L, RDW 14.8, Plt Count 460 H, Neut % (Auto) 83.4 H, Lymph % (Auto) 7.8 L, [place] % (Auto) 6.5, Eos % (Auto) 1.9, Baso % (Auto) 0.3, Neut # (Auto) 10.1 H, Lymph # (Auto) 1.0, [place] # (Auto) 0.8, Eos # (Auto) 0.2, Baso # (Auto) 0.0, Total Counted 100, Neutrophils % (Manual) 88 H, Lymphocytes % (Manual) 9 L, Monocytes % (Manual) 3, Platelet Estimate Normal, Hypochromasia 1+ 01/17/20 07:45: Sodium 150 H, Potassium 2.7 L*, Chloride 111 H, Carbon Dioxide 28, Anion Gap 13.7, BUN 20, Creatinine 2.00 H, Estimated Creat Clear 50, Estimated GFR 34 L, Est GFR ( Amer) 41 L, Glucose 77, Calcium 7.8 L Medical History: Reports:: Aneurysm (AAA), Dementia, Depression, Heart Murmur, Hyperlipidemia, Hypertension Denies:: Cancer, Diabetes Mellitus Type 1, Diabetes Mellitus Type 2 Assessment and Plan (1) HCAP (healthcare-associated pneumonia) Current visit: Yes Status: Acute Category: Medical Code(s): J18.9 - Pneumonia, unspecified organism (2) Sepsis Current visit: Yes Status: Acute Qualifiers: Sepsis type: sepsis due to unspecified organism Sepsis acute organ dysfunction status: without acute organ dysfunction Qualified Code(s): A41.9 - Sepsis, unspecified organism Category: Medical Code(s): A41.9 - Sepsis, unspecified organism (3) Parkinson disease Current visit: No Status: Acute Category: Medical Code(s): G20 - Parkinson's disease (4) Pneumonia of both lower lobes due to methicillin resistant Staphylococcus aureus (MRSA) Current visit: Yes Status: Acute Category: Medical Code(s): J15.212 - Pneumonia due to Methicillin resistant Staphylococcus aureus (5) Dysphagia Current visit: No Status: Chronic Qualifiers: Dysphagia type: other dysphagia Qualified Code(s): R13.19 - Other dysphagia Category: Medical Code(s): R13.10 - Dysphagia, unspecified (6) Stage II pressure ulcer of buttock Current visit: Yes Status: Acute Qualifiers: Laterality: right Qualified Code(s): L89.312 - Pressure ulcer of right buttock, stage 2 Category: Medical Code(s): L89.302 - Pressure ulcer of unspecified buttock, stage 2 (7) Respiratory failure with hypoxia Current visit: Yes Status: Acute Qualifiers: Chronicity: acute Qualified Code(s): J96.01 - Acute respiratory failure with hypoxia Category: Medical Code(s): J96.91 - Respiratory failure, unspecified with hypoxia (8) Pleural effusion Current visit: Yes Status: Acute Category: Medical Code(s): J90 - Pleural effusion, not elsewhere classified (9) Hypokalemia Current visit: Yes Status: Acute Category: Medical Code(s): E87.6 - Hypokalemia (10) MARY JANE (acute kidney injury) Current visit: Yes Status: Acute Category: Medical Code(s): N17.9 - Acute kidney failure, unspecified - Assessment and plan all Dx Assessment and Plan for all problems:: BASED ON VANCOMYCIN TROUGH LEVEL THIS MORNING AND PATIENT FACTORS, RECOMMEND RESTARTING VANCOMYCIN TODAY AT 1500 MG IV Q24H. PATIENT'S CREATININE IS NOW AT 2.0. PHARMACY WILL CONTINUE TO MONITOR DAILY AND ADJUST APPROPRIATE.
[2020-01-18 08:08] LABS: Calcium 8.1 mg/dl (8.4-10.2)
[2020-01-18 08:28] LABS: Basophils # 0.1 K/mm3 (0-0.2); Basophils % 0.4 % (0.1-2.0); Eosinophils # 0.3 K/mm3 (0.0-0.4); Eosinophils % 2.2 % (0.1-12.0); Hematocrit 36.5 % (42.0-52.0); Hemoglobin 11.3 g/dL (14.1-18.0); Lymphocytes # 1.4 K/mm3 (0.7-4.5); Lymphocytes % 9.7 % (10-50); Mean Corpuscular Volume 77.6 fl (80-94); Monocytes # 0.9 K/mm3 (0.1-1.0); Monocytes % 6.1 % (1.7-9.3); Neutrophils # 11.8 K/mm3 (1.8-7.8); Neutrophils % 81.6 % (37.0-80.0); Platelet Count 522 K/mm3 (142-424); Red Cell Distribution Width 14.6 % (11.5-17.5); White Blood Count 14.4 K/mm3 (4.8-10.8)
[2020-01-18 09:03] LABS: Lymphocytes % 8 % (10-50); Monocytes % 7 % (2-9); Neutrophils % 85 % (42-76); Total Cells Counted 100
[2020-01-18 09:04] LABS: Hypochromasia 1+
--- NOTE | 2020-01-18 09:29 | Progress Note ---
Internal Medicine - PN: Subj *Date: 01/18/20 *Time: 10:44 Interval history: 64 YOM sitting up in bed, alert and answering simple questions. Sister present and reports she fed him approx 1/3 of breakfast and 1/3 of fluids W/O distress or coughing. Pot 2.0 this AM, BUN/Creat 20/1.0, GFR 38 Exam Vital signs and Labs for Last 24 Hours: Temp Pulse Resp BP Pulse Ox 99.7 F H 102 H 18 160/90 H 92 L 01/18/20 07:24 01/18/20 07:24 01/18/20 07:24 01/18/20 07:24 01/18/20 07:24 Laboratory Results - last 24 hr 01/17/20 07:45: Vancomycin Trough 12.6 H 01/17/20 07:45: WBC 12.1 H, RBC 4.31 L, Hgb 10.6 L, Hct 34.6 L, MCV 80.3, MCH 24.7 L, MCHC 30.7 L, RDW 14.8, Plt Count 460 H, Neut % (Auto) 83.4 H, Lymph % (Auto) 7.8 L, [place] % (Auto) 6.5, Eos % (Auto) 1.9, Baso % (Auto) 0.3, Neut # (Auto) 10.1 H, Lymph # (Auto) 1.0, [place] # (Auto) 0.8, Eos # (Auto) 0.2, Baso # (Auto) 0.0, Total Counted 100, Neutrophils % (Manual) 88 H, Lymphocytes % (Manual) 9 L, Monocytes % (Manual) 3, Platelet Estimate Normal, Hypochromasia 1+ 01/17/20 07:45: Sodium 150 H, Potassium 2.7 L*, Chloride 111 H, Carbon Dioxide 28, Anion Gap 13.7, BUN 20, Creatinine 2.00 H, Estimated Creat Clear 50, Estimated GFR 34 L, Est GFR ( Amer) 41 L, Glucose 77, Calcium 7.8 L 01/18/20 07:20: Sodium 148 H, Potassium 2.0 L* D, Chloride 105, Carbon Dioxide 36 H D, Anion Gap 9.0, BUN 20, Creatinine 1.80 H, Estimated Creat Clear 54, Estimated GFR 38 L, Est GFR ( Amer) 46 L, Glucose 144 H D, Calcium 8.1 L 01/18/20 07:20: WBC 14.4 H, RBC 4.70, Hgb 11.3 L, Hct 36.5 L, MCV 77.6 L, MCH 24.1 L, MCHC 31.0 L, RDW 14.6, Plt Count 522 H, Neut % (Auto) 81.6 H, Lymph % (Auto) 9.7 L, [place] % (Auto) 6.1, Eos % (Auto) 2.2, Baso % (Auto) 0.4, Neut # (Auto) 11.8 H, Lymph # (Auto) 1.4, [place] # (Auto) 0.9, Eos # (Auto) 0.3, Baso # (Auto) 0.1, Total Counted 100, Neutrophils % (Manual) 85 H, Lymphocytes % (Manual) 8 L, Monocytes % (Manual) 7, Platelet Estimate Slight increase, Hypochromasia 1+, Microcytosis 1+ I & O for Last 24 hours: Intake & Output 01/15/20 01/16/20 01/17/20 01/18/20 23:59 23:59 23:59 23:59 Intake Total 3100 / 3100 7395 / 7395 4163.667 / 4163.667 1895 Output Total Balance 3100 / 3100 7395 / 7395 4163.667 / 4163.667 189 / 1895 Weight 209 lb 8.19 oz 209 lb 9 oz 203 lb 8 oz 196 lb 1 oz Microbiology Reports for the Last 24 Hours: Microbiology 01/12/20 14:20 Pleural Fluid - Pleura,Rt Lung Gram Stain - Final 01/12/20 14:20 Pleural Fluid - Pleura,Rt Lung Body Fluid Culture - Final NO GROWTH AFTER 5 DAYS - Constitutional no acute distress - *Routine HEENT Exam Head: Present: normocephalic, atraumatic Eye: Present: EOMI, normal accommodation. Absent: periorbital tenderness ENT: Present: mucous membranes dry. Absent: sinus tenderness - *Routine Neck Exam Present: supple, trachea midline. Absent: JVD, tracheal deviation - *Routine Respiratory Exam Present: wheezes - *Routine Cardiovascular Exam Present: RRR, murmur - *Routine Abdominal Exam Present: soft, distended. Absent: tenderness, firm - *Routine Extremities Exam Present: full ROM. Absent: calf tenderness - *Routine Skin Exam Present: intact - *Routine Neurological Exam Present: alert, CN II-XII intact - Routine Psychiatric Exam Present: normal affect Assessment and Plan (1) HCAP (healthcare-associated pneumonia) Current visit: Yes Status: Acute Category: Medical Code(s): J18.9 - Pneumonia, unspecified organism (2) Sepsis Current visit: Yes Status: Acute Qualifiers: Sepsis type: sepsis due to unspecified organism Sepsis acute organ dysfunction status: without acute organ dysfunction Qualified Code(s): A41.9 - Sepsis, unspecified organism Category: Medical Code(s): A41.9 - Sepsis, unspecified organism (3) Parkinson disease Current visit: No Status: Acute Category: Medical Code(s): G20 - Parkinson's disease (4) Pneumonia of both lower lobes due to methicillin resistant Staphylococcus aureus (MRSA) Current visit: Yes Status: Acute Category: Medical Code(s): J15.212 - Pneumonia due to Methicillin resistant Staphylococcus aureus (5) Dysphagia Current visit: No Status: Chronic Qualifiers: Dysphagia type: other dysphagia Qualified Code(s): R13.19 - Other dysphagia Category: Medical Code(s): R13.10 - Dysphagia, unspecified (6) Stage II pressure ulcer of buttock Current visit: Yes Status: Acute Qualifiers: Laterality: right Qualified Code(s): L89.312 - Pressure ulcer of right buttock, stage 2 Category: Medical Code(s): L89.302 - Pressure ulcer of unspecified buttock, stage 2 (7) Respiratory failure with hypoxia Current visit: Yes Status: Acute Qualifiers: Chronicity: acute Qualified Code(s): J96.01 - Acute respiratory failure with hypoxia Category: Medical Code(s): J96.91 - Respiratory failure, unspecified with hypoxia (8) Pleural effusion Current visit: Yes Status: Acute Category: Medical Code(s): J90 - Pleural effusion, not elsewhere classified (9) Hypokalemia Current visit: Yes Status: Acute Category: Medical Code(s): E87.6 - Hypokalemia (10) MARY JANE (acute kidney injury) Current visit: Yes Status: Acute Category: Medical Code(s): N17.9 - Acute kidney failure, unspecified - Assessment and plan all Dx Assessment and Plan for all problems:: Rounded w/ Dr. Hua, all orders per Dr. Hua 1. Replace Pot 2. Advanced diet 3. Possible D/C tomorrow
[2020-01-19 06:19] LABS: Calcium 7.5 mg/dl (8.4-10.2)
[2020-01-19 07:07] LABS: Basophils # 0.1 K/mm3 (0-0.2); Basophils % 0.6 % (0.1-2.0); Eosinophils # 0.5 K/mm3 (0.0-0.4); Eosinophils % 3.3 % (0.1-12.0); Hematocrit 35.4 % (42.0-52.0); Hemoglobin 10.8 g/dL (14.1-18.0); Lymphocytes # 1.4 K/mm3 (0.7-4.5); Lymphocytes % 9.6 % (10-50); Mean Corpuscular HGB Conc 30.4 g/dL (31.8-35.4); Mean Corpuscular Volume 79.4 fl (80-94); Monocytes # 0.9 K/mm3 (0.1-1.0); Monocytes % 6.3 % (1.7-9.3); Neutrophils # 11.8 K/mm3 (1.8-7.8); Neutrophils % 80.3 % (37.0-80.0); Platelet Count 554 K/mm3 (142-424); Red Blood Count 4.46 M/mm3 (4.60-6.20); Red Cell Distribution Width 14.9 % (11.5-17.5); White Blood Count 14.7 K/mm3 (4.8-10.8)
[2020-01-19 07:45] LABS: Eosinophils % 2 % (0-3); Lymphocytes % 7 % (10-50); Monocytes % 5 % (2-9); Neutrophils % 86 % (42-76); Total Cells Counted 100
[2020-01-19 07:46] LABS: Hypochromasia 1+
--- NOTE | 2020-01-19 09:33 | Discharge Summary ---
General - General Admission date:: 01/07/20 Discharge date: 01/19/20 HPI HPI: [facility] patient has had increased shortness of breath that started around 12-1 pm today. 64-year-old male was brought in by the EMS for having altered mental status. He has also been coughing and having thick purulent type sputum on his tracheostomy stoma site. According to the nursing staff the patient is usually very age-related in nature. He is not responding well today and seems to be short of breath. pt was found to have elevated wbc and colored sputum - pt had abn cxr which showed bilat inflitrates and was admitted with hcap and sepsis Hospital Course Hospital Course: 01/06- chest x ray-IMPRESSION: Bilateral lower lobe the pneumonia 01/[address]- IMPRESSION: No acute intracranial findings. 01/10-chest x ray-IMPRESSION: Interval development of large loculated right-sided pleural effusion with cardiomegaly 01/11-chest x ray-IMPRESSION: No change loculated right-sided pleural effusion. No evidence of pneumothorax status post diagnostic thoracentesis 01/11-swallow eval-IMPRESSION: Delay in initiation with spillage and residual with flash penetration with thin liquids but no casper tracheal aspiration 01/11-PROCEDURE: US THORACENTESIS CLINICAL INDICATION: Large R Pleural Effusion COMPARISON: No exams were available for comparison FINDINGS: The patient has a known loculated right pleural effusion loculated along the posterior lateral aspect of the right hemithorax. There was extreme difficulty improperly positioning and holding the patient in place. Patient could not set up in the usual position for thoracentesis. Diagnostic thoracentesis with therefore performed from the right lateral pro to the patient in the left lateral decubitus position. Following obtaining informed consent under aseptic conditions and local anesthesia with 1 percent buffered lidocaine, 22 gauge spinal needle was inserted into the collection from the right lateral approach. Approximately 8 cc serous fluid was aspirated and sent to the lab for evaluation. There were no immediate complications. Post thoracentesis chest x-rays did not demonstrate any evidence of pneumothorax. 01/11-ct chest-IMPRESSION: 1. There is a moderate sized loculated right pleural effusion. This is causing compressive atelectasis of the right upper lobe with near complete collapse of the right lower lobe. 2. Patchy atelectasis or infiltrate in the lingula 3. Coronary artery disease with cardiomegaly and small pericardial effusion loculated along the right lateral aspect of the pericardium. This could also be related to medial loculated pleural effusion. 4. Narrowing of both mainstem bronchi right greater than left possibly related to phase of respiration versus bronchomalacia. 01/15-swallowing modified IMPRESSION: Abnormal modified barium swallow with delay, spillage, flash penetration without obvious tracheal aspiration. 01/16 swallowing modified FINDINGS: Patient was given varying consistencies of barium. There was poor oral motor control with residual following both putting and mechanical soft trials. No casper tracheal aspiration. There was flash penetration with thin liquids. There was moderate delay in initiation of the swallowing mechanism. IMPRESSION: Delay with residual and flash penetration with thin liquids. No casper tracheal aspiration Laboratory Results - last 72 hr 01/16/20 01/17/20 01/17/20 12:57 07:45 07:45 WBC 12.1 H RBC 4.31 L Hgb 10.6 L Hct 34.6 L MCV 80.3 MCH 24.7 L MCHC 30.7 L RDW 14.8 Plt Count 460 H Neut % (Auto) 83.4 H Lymph % (Auto) 7.8 L [place] % (Auto) 6.5 Eos % (Auto) 1.9 Baso % (Auto) 0.3 Neut # (Auto) 10.1 H Lymph # (Auto) 1.0 [place] # (Auto) 0.8 Eos # (Auto) 0.2 Baso # (Auto) 0.0 Total Counted 100 Neutrophils % (Manual) 88 H Lymphocytes % (Manual) 9 L Monocytes % (Manual) 3 Eosinophils % (Manual) Platelet Estimate Normal Hypochromasia 1+ Microcytosis Sodium 147 H Potassium 2.7 L* Chloride 111 H Carbon Dioxide 30 Anion Gap 8.7 BUN 22 H Creatinine 2.00 H Estimated Creat Clear 51 Estimated GFR 34 L Est GFR ( Amer) 41 L Glucose 84 Calcium 7.5 L Vancomycin Trough 12.6 H 01/17/20 01/18/20 01/18/20 07:45 07:20 07:20 WBC 14.4 H RBC 4.70 Hgb 11.3 L Hct 36.5 L MCV 77.6 L MCH 24.1 L MCHC 31.0 L RDW 14.6 Plt Count 522 H Neut % (Auto) 81.6 H Lymph % (Auto) 9.7 L [place] % (Auto) 6.1 Eos % (Auto) 2.2 Baso % (Auto) 0.4 Neut # (Auto) 11.8 H Lymph # (Auto) 1.4 [place] # (Auto) 0.9 Eos # (Auto) 0.3 Baso # (Auto) 0.1 Total Counted 100 Neutrophils % (Manual) 85 H Lymphocytes % (Manual) 8 L Monocytes % (Manual) 7 Eosinophils % (Manual) Platelet Estimate Slight increase Hypochromasia 1+ Microcytosis 1+ Sodium 150 H 148 H Potassium 2.7 L* 2.0 L* D Chloride 111 H 105 Carbon Dioxide 28 36 H D Anion Gap 13.7 9.0 BUN 20 20 Creatinine 2.00 H 1.80 H Estimated Creat Clear 50 54 Estimated GFR 34 L 38 L Est GFR ( Amer) 41 L 46 L Glucose 77 144 H D Calcium 7.8 L 8.1 L Vancomycin Trough 01/19/20 01/19/20 01/19/20 05:40 05:40 10:25 WBC 14.7 H RBC 4.46 L Hgb 10.8 L Hct 35.4 L MCV 79.4 L MCH 24.2 L MCHC 30.4 L RDW 14.9 Plt Count 554 H Neut % (Auto) 80.3 H Lymph % (Auto) 9.6 L [place] % (Auto) 6.3 Eos % (Auto) 3.3 Baso % (Auto) 0.6 Neut # (Auto) 11.8 H Lymph # (Auto) 1.4 [place] # (Auto) 0.9 Eos # (Auto) 0.5 H Baso # (Auto) 0.1 Total Counted 100 Neutrophils % (Manual) 86 H Lymphocytes % (Manual) 7 L Monocytes % (Manual) 5 Eosinophils % (Manual) 2 Platelet Estimate Slight increase Hypochromasia 1+ Microcytosis Sodium 146 H Potassium 2.0 L* Chloride 106 Carbon Dioxide 34 H Anion Gap 8.0 BUN 19 Creatinine 1.60 H Estimated Creat Clear 61 Estimated GFR 44 L Est GFR ( Amer) 53 L Glucose 105 H D Calcium 7.5 L Vancomycin Trough 15.0 H Recommendations PHYSICIAN CERTIFICATION: The specified therapy services are required, authorized, and reviewed every 30 days. Diet Recommendations Pureed Liquid Type Recommendations Normal/Thin SL Swallow Guidelines Alt bite w/sip thru meal, Standard Aspiration Prec.,Chk mough for pocketing,Oral Care Education,Oral care pre/post meals Dysphagia Swallow Precautions/Strategies Sitting Upright (90 deg),No Straw,Liquids from Cup, Alternate Liquids/Solids Plan Pt/Guardian verbally ack understanding No: Patient's mental status is of dx/prognosis/goals altered G -code Required No Education Instructions provided Education provided to NSG and will be provided to guardian via NSG regarding diet upgrade and swallow safety precautions. Mod Barium Swallow Setup Exam Setup Radiologist Stan Gaxiola Level of Consciousness Awake,Alert,Appropriate, Follows Commands Position (degrees) 90 Comment Patient became fatigued as study progressed which impacted further trials provided. Mod Barium Swallow-Lat View Textures Lateral View Food Presentation Thin Liquid via Spoon,Thin Liquid via Cup,Thin Liquid via Straw,[place] Liquid via Spoon ,Pureed Food- Thick,Ground Food- Regular,Pudding Comment Patient was presented with thin via spoon x2, cup x2, and straw x2 and NTL via spoon x1 . Patient was also presented with trials of puree x2, pudding x2, and mechanical soft x2. Oral Phase Labial Closure No Impairment (WFL) Bolus Formation Pooling L/R Mild Impairment Bolus Formation under Tongue No Impairment (WFL) Bolus Formation Scattered Loss Mild Impairment Mastication Rotary Chew Moderate Impairment Mastication Munching No Impairment (WFL) Mastication Lateralization Moderate Impairment A/P Lingual Propulsion Spills No Impairment (WFL) Lingual Movement No Impairment (WFL) Residue Clearing Mild Impairment Aspiration? No Pharyngeal Phase Swallow Response Delay Mild Impairment Base of Tongue Mild Impairment Epiglottic Coverage No Impairment (WFL) Laryngeal Elevation Mild Impairment Vallecular Retention Clearing Minimal Impairment Pharyn. Wall Residue Clearing No Impairment (WFL) Piriform Sinus Retention No Impairment (WFL) Mod Barium Swallow-AP View Performed Mod Barium Swallow A/P View Test Not Applicable/Performed Speech/Language Mod Barium Swallow Start: 01/16/20 09:08 Freq: ONCE Status: Complete Protocol: Document 01/16/20 14:05 PEDRITO (Rec: 01/16/20 14:52 PEDRITO [id number]) General Information General Current Food Consistancy NPO Dentition Poor Dentition Oxygen Status Room Air Facial Symmetry Symmetrical Patient Orientation Person Ability to Follow Directions Poor Communication Ability Moderate Impairment MBS Recommendations Diet Dietary Recommendations NPO Referrals/Other Recommended Referrals GI Consult,Alternate Feeding Method Other Recommendations Repeat modified barium swallow when patient is more alert. Mod Barium Swallow Impressions Summary and Impressions Oral Phase Impression Moderate Impairment Oral Phase Summary Mr. Martínez was given the following consistencies: thins via spoon and open cup, nectar via spoon and open cup, honey via spoon and open cup, pudding, and pureed. Mr. Martínez exhibited difficulty initiation the preparation to intiate the swallow with honey , pudding and pureed. He required tactile and verbal cues to initate the swallow. Pharyngeal Phase Impression Mild Impairment Pharyngeal Phase Summary Mr. Martínez did exhibited deep penetration on all trials of thins and nectar liquids. Speech/Language MBS Assessment/Goals/Plan Assessment Date of Evaluation: 01/16/20 Evaluation Type Re-Evaluation/Revise POC Assessment/Problems Dysphagia Does Patient Qualify for Service No Qualify/Failure Comment Due to difficulty following directions, Mr. Martínez does not qualify for services. As his alertness level increases, he will be re-evaluated. Plan Pt/Guardian verbally ack understanding Yes: RN notified of of dx/prognosis/goals recommendations G -code Required No Mod Barium Swallow Setup Exam Setup Radiologist Stan Gaxiola Level of Consciousness Awake,Alert Position (degrees) 90 Mod Barium Swallow-Lat View Textures Lateral View Food Presentation Thin Liquid via Spoon,Thin Liquid via Cup,[place] Liquid via Spoon,[place] Liquid via Cup,Honey Liquid via Spoon, Honey Liquid via Cup,Pureed Food- Thin,Pudding Oral Phase Labial Closure No Impairment (WFL) Bolus Formation Pooling L/R No Impairment (WFL) Bolus Formation under Tongue No Impairment (WFL) Bolus Formation Scattered Loss No Impairment (WFL) Mastication Rotary Chew Moderate Impairment Mastication Munching Moderate Impairment Mastication Lateralization Moderate Impairment A/P Lingual Propulsion Spills Moderate Impairment Lingual Movement Moderate Impairment Residue Clearing Moderate Impairment Degree of Aspiration Medium Silent aspiration? No Other Oral Phase Observations Delayed initiation of swallow with all consistencies. Pharyngeal Phase Swallow Response Delay No Impairment (WFL) Epiglottic Coverage Mild Impairment Laryngeal Elevation No Impairment (WFL) Vallecular Retention Clearing Mild Impairment Pharyn. Wall Residue Clearing No Impairment (WFL) Piriform Sinus Retention No Impairment (WFL) Other Pharyngeal Phase Observation Penetration into laryngeal vestibule with thins and nectar Mod Barium Swallow-AP View Performed Mod Barium Swallow A/P View Test Not Applicable/Performed Speech/Language Mod Barium Swallow Start: 01/17/20 14:40 Freq: ONCE Status: Complete Protocol: Document 01/17/20 16:54 CMAY (Rec: 01/17/20 17:37 CMAY [id number]) General Information General Current Food Consistancy Mechanical Soft,Honey Liquids Dentition Poor Dentition Oxygen Status Room Air Facial Symmetry Symmetrical Ability to Follow Directions Good Communication Ability Mild Impairment MBS Recommendations Diet Dietary Recommendations Mechanical Soft,[place] Liquids Treatment/Strategies Strategy/Precaution Recommend Sitting Upright (90 deg),No Straw,Small Bites and Sips, Alternate Liquids/Solids Mod Barium Swallow Impressions Summary and Impressions Oral Phase Impression Moderate Impairment Oral Phase Summary The patient's oral phase is moderately impaired. Patient has poor dentition. Bolus formation was impacted for MS trials and resulted in scattered loss in the oral cavity. Taste of barium impacted patient's trials of puree, pudding, and MS, as patient held these trials in his oral cavity for long periods of time. ST had to verbally prompt patient to swallow these trials multiple times. Pharyngeal Phase Impression Mild Impairment Pharyngeal Phase Summary The patient's pharyngeal phase is mildly impaired. Flash penetration was observed on x2 trials of thin via cup. Mild regurgitation into the oral cavity was observed on x1 trial of HTL via cup, which was a relatively large amount of liquid (patient completed this trial independently holding cup). Swallow initiation was delayed during puree, pudding, and MS trials likely secondary to patient not liking the barium taste of food trials. No aspiration observed. Speech/Language MBS Assessment/Goals/Plan Assessment Date of Evaluation: 01/17/20 Evaluation Type Re-Evaluation/Revise POC Assessment/Problems Dysphagia Does Patient Qualify for Service No Qualify/Failure Comment Patient does not qualify for ST services at this time based on the results of today's evaluation. Dietary changes were implemented for patient's safety during intake. Recommendations PHYSICIAN CERTIFICATION: The specified therapy services are required, authorized, and reviewed every 30 days. Diet Recommendations Mechanical Soft Liquid Type Recommendations [place] Consistency SL Swallow Guidelines Alt bite w/sip thru meal, Standard Aspiration Prec.,Oral care pre/post meals Dysphagia Swallow Precautions/Strategies Sitting Upright (90 deg),No Straw,Small Bites and Sips, Alternate Liquids/Solids Plan Pt/Guardian verbally ack understanding No: Patient's mental status of dx/prognosis/goals altered. G -code Required No Education Instructions provided Education provided to patient/ NSG regarding swallowing safety strategies to implement such as sitting upright during intake, alternating bites/sips, not using straws, and taking small bites/sips. Pt/Caregiver able to recall information Reinforcement needed Reinforcement needed Yes Mod Barium Swallow-Lat View Textures Lateral View Food Presentation Thin Liquid via Spoon,Thin Liquid via Cup,[place] Liquid via Spoon,[place] Liquid via Cup,Honey Liquid via Spoon, Honey Liquid via Cup,Pureed Food- Thick,Ground Food- Chopped,Pudding Comment Patient was presented with trials of thin via spoon x2 and cup x2, NTL via spoon x2 and cup x2, and HTL via spoon x2 and cup x2. Patient was also presented with trials of puree x2, pudding x1, and mechanical soft x1. Oral Phase Labial Closure No Impairment (WFL) Bolus Formation Pooling L/R Mild Impairment Bolus Formation under Tongue No Impairment (WFL) Bolus Formation Scattered Loss Mild Impairment Mastication Rotary Chew No Impairment (WFL) Mastication Munching No Impairment (WFL) Mastication Lateralization No Impairment (WFL) A/P Lingual Propulsion Spills No Impairment (WFL) Lingual Movement Minimal Impairment Residue Clearing Minimal Impairment Aspiration? No Pharyngeal Phase Swallow Response Delay Minimal Impairment Base of Tongue No Impairment (WFL) Epiglottic Coverage No Impairment (WFL) Laryngeal Elevation No Impairment (WFL) Vallecular Retention Clearing Minimal Impairment Pharyn. Wall Residue Clearing No Impairment (WFL) Piriform Sinus Retention No Impairment (WFL) Please see speech pathologist report and recommendations. will dc back to [facility] and pt has finished 11 days of antibiotics. Objective Vital signs: Temp Pulse Resp BP Pulse Ox 100.2 F H 106 H 20 159/92 H 93 L 01/19/20 07:42 01/19/20 07:42 01/19/20 07:42 01/19/20 07:42 01/19/20 07:42 no acute distress - *Routine HEENT Exam Head: Present: normocephalic Eye: Present: PERRL ENT: Present: mucous membranes moist - *Routine Neck Exam Present: supple Comments: trache stoma - *Routine Respiratory Exam Present: CTA bilaterally - *Routine Cardiovascular Exam Present: RRR - *Routine Abdominal Exam Present: soft, normoactive bowel sounds. Absent: tenderness - *Routine Extremities Exam Absent: cyanosis, clubbing, edema - *Routine Skin Exam Present: warm, wounds. Absent: rash Comments: stage 2 to buttocks - *Routine Neurological Exam Present: alert, oriented X3 - Routine Psychiatric Exam Present: normal affect Results Labs on day of discharge: Labs from last 24 hours 01/19/20 01/19/20 05:40 05:40 WBC 14.7 H RBC 4.46 L Hgb 10.8 L Hct 35.4 L MCV 79.4 L MCH 24.2 L MCHC 30.4 L RDW 14.9 Plt Count 554 H Neut % (Auto) 80.3 H Lymph % (Auto) 9.6 L [place] % (Auto) 6.3 Eos % (Auto) 3.3 Baso % (Auto) 0.6 Neut # (Auto) 11.8 H Lymph # (Auto) 1.4 [place] # (Auto) 0.9 Eos # (Auto) 0.5 H Baso # (Auto) 0.1 Total Counted 100 Neutrophils % (Manual) 86 H Lymphocytes % (Manual) 7 L Monocytes % (Manual) 5 Eosinophils % (Manual) 2 Platelet Estimate Slight increase Hypochromasia 1+ Sodium 146 H Potassium 2.0 L* Chloride 106 Carbon Dioxide 34 H Anion Gap 8.0 BUN 19 Creatinine 1.60 H Estimated Creat Clear 61 Estimated GFR 44 L Est GFR ( Amer) 53 L Glucose 105 H D Calcium 7.5 L Preliminary micro results at discharge 01/16/20 10:30 Blood Culture - Preliminary Blood NO GROWTH AFTER 48 HOURS 01/16/20 09:45 Blood Culture - Preliminary Blood NO GROWTH AFTER 48 HOURS - Additional Comments rounded with armando all orders per armando DS: Diagnosis - Discharge Diagnosis (1) HCAP (healthcare-associated pneumonia) Status: Acute (2) Sepsis Status: Acute (3) Parkinson disease Status: Acute (4) Pneumonia of both lower lobes due to methicillin resistant Staphylococcus aureus (MRSA) Status: Acute (5) Dysphagia Status: Chronic (6) Stage II pressure ulcer of buttock Status: Acute (7) Respiratory failure with hypoxia Status: Acute (8) Pleural effusion Status: Acute (9) Hypokalemia Status: Acute (10) MARY JANE (acute kidney injury) Status: Acute Discharge Plan - Patient Discharge Instructions ACTIVITY: Continue current activity DIET: continue same diet Patient Instructions: DI for Pneumonia -- Adult, DI for Shortness of Breath - Follow up Plan Follow up with: Michelle Waters APRN [Advanced Practice Nurse] - Disposition: Xfer SNF Home Medications: Home Medications Medication Instructions Recorded Confirmed Type Pantoprazole Sodium [Protonix 40mg 40 mg PO DAILY 09/03/18 01/08/20 History tablet] Tamsulosin HCl [Flomax 0.4mg 0.4 mg PO HS 09/03/18 01/08/20 History capsule] polyethylene glycoL 3350 [Miralax 17 gm PO DAILY 09/03/18 01/08/20 History 17gm Packet] LORazepam [Ativan 0.5mg 0.5 mg PO BID 05/21/19 01/08/20 History tablet] Oxycodone HCl [Oxycodone (IR) 5mg 5 mg PO QID 05/21/19 01/08/20 History Cap] bisacodyL [Correctol] 10 mg PO BID 08/04/19 01/08/20 History Ascorbic Acid [Vitamin C 500mg 500 mg PO DAILY 08/08/19 01/08/20 History tablet] Cyclobenzaprine HCl 5 mg PO TID 08/08/19 01/08/20 History [Cyclobenzaprine 5mg Tab] M-Vit,Tx,Iron,Mins/Calc/Folic 1 each PO DAILY 08/08/19 01/08/20 History [Therapeutic M Tablet] Potassium Chloride [Micro-K 10mEq 20 meq PO TID 08/08/19 01/08/20 History cap] Simethicone [Gas-X] 125 mg PO BID 08/08/19 01/08/20 History Zinc Sulfate [Zinc Sulfate 220mg 220 mg PO DAILY 08/08/19 01/08/20 History capsule] fentaNYL [fentaNYL 75mcg Patch] 75 mcg TD Q72H 08/08/19 01/08/20 History levETIRAcetam [Keppra] 750 mg PO BID 08/08/19 01/08/20 History OXcarbazepine [Trileptal 300mg 600 mg PO BID tab 08/11/19 01/08/20 Rx tablet] Acetaminophen [Tylenol 500mg 500 mg PO Q4HP PRN 01/08/20 01/08/20 History tablet] Atorvastatin Calcium [Atorvastatin 20 mg PO HS 01/08/20 01/08/20 History 20mg Tab] Benztropine Mesylate 2 mg PO TID 01/08/20 01/08/20 History Carbidopa/Levodopa [Sinemet 25-100 1 each PO TID 01/08/20 01/08/20 History mg Tablet] Doxepin HCl [Sinequan 10mg capsule] 10 mg PO Q8HP PRN 01/08/20 01/08/20 History Lactulose [Lactulose 10gm/15ml 30 ml PO DAILY 01/08/20 01/08/20 History Oral Soln] Menthol/Zinc Oxide [Menthol-Zinc 1 applicatio TP TID 01/08/20 01/08/20 History Oxide 0.45%-20%] OLANZapine [Olanzapine] 10 mg PO BID 01/08/20 01/08/20 History haloperidoL [Haloperidol] 10 mg PO TID 01/08/20 01/08/20 History Prescriptions/Medication Reconciliation: Continued Tamsulosin HCl [Flomax 0.4mg capsule] 0.4 mg PO HS polyethylene glycoL 3350 [Miralax 17gm Packet] 17 gm PO DAILY Oxycodone HCl [Oxycodone (IR) 5mg Cap] 5 mg PO QID LORazepam [Ativan 0.5mg tablet] 0.5 mg PO BID Potassium Chloride [Micro-K 10mEq cap] 20 meq PO TID Simethicone [Gas-X] 125 mg PO BID Zinc Sulfate [Zinc Sulfate 220mg capsule] 220 mg PO DAILY Ascorbic Acid [Vitamin C 500mg tablet] 500 mg PO DAILY levETIRAcetam [Keppra] 750 mg PO BID OXcarbazepine [Trileptal 300mg tablet] 600 mg PO BID tab Benztropine Mesylate 2 mg PO TID Lactulose [Lactulose 10gm/15ml Oral Soln] 30 ml PO DAILY Menthol/Zinc Oxide [Menthol-Zinc Oxide 0.45%-20%] 1 applicatio TP TID Carbidopa/Levodopa [Sinemet 25-100 mg Tablet] 1 each PO TID OLANZapine [Olanzapine] 10 mg PO BID Pantoprazole Sodium [Protonix 40mg tablet] 40 mg PO DAILY bisacodyL [Correctol] 10 mg PO BID M-Vit,Tx,Iron,Mins/Calc/Folic [Therapeutic M Tablet] 1 each PO DAILY Acetaminophen [Tylenol 500mg tablet] 500 mg PO Q4HP PRN PRN Reason: Fever Atorvastatin Calcium [Atorvastatin 20mg Tab] 20 mg PO HS Discontinued Cyclobenzaprine HCl [Cyclobenzaprine 5mg Tab] 5 mg PO TID fentaNYL [fentaNYL 75mcg Patch] 75 mcg TD Q72H haloperidoL [Haloperidol] 10 mg PO TID Doxepin HCl [Sinequ[place] 10mg capsule] 10 mg PO Q8HP PRN PRN Reason: Agitation - Problem Reconciliation Problems Reviewed?: Yes
--- NOTE | 2020-01-19 12:18 | Pharmacy Consult Notes ---
- Pharmacy Consult Date: 01/19/20 Time: 12:13 Referring provider: DR. HERNÁNDEZ Reason for Consult:: VANCOMYCIN TROUGH Allergies and ADEs:: Allergies Allergy/AdvReac Type Severity Reaction Status Date / Time hydroxyzine Allergy Unknown Verified 01/08/20 08:27 allergy reaction nylon Allergy Unknown Verified 01/08/20 08:27 allergy reaction Home Medications:: Home Medications Medication Instructions Recorded Confirmed Type Pantoprazole Sodium [Protonix 40mg 40 mg PO DAILY 09/03/18 01/08/20 History tablet] Tamsulosin HCl [Flomax 0.4mg 0.4 mg PO HS 09/03/18 01/08/20 History capsule] polyethylene glycoL 3350 [Miralax 17 gm PO DAILY 09/03/18 01/08/20 History 17gm Packet] LORazepam [Ativan 0.5mg 0.5 mg PO BID 05/21/19 01/08/20 History tablet] Oxycodone HCl [Oxycodone (IR) 5mg 5 mg PO QID 05/21/19 01/08/20 History Cap] bisacodyL [Correctol] 10 mg PO BID 08/04/19 01/08/20 History Ascorbic Acid [Vitamin C 500mg 500 mg PO DAILY 08/08/19 01/08/20 History tablet] Cyclobenzaprine HCl 5 mg PO TID 08/08/19 01/08/20 History [Cyclobenzaprine 5mg Tab] M-Vit,Tx,Iron,Mins/Calc/Folic 1 each PO DAILY 08/08/19 01/08/20 History [Therapeutic M Tablet] Potassium Chloride [Micro-K 10mEq 20 meq PO TID 08/08/19 01/08/20 History cap] Simethicone [Gas-X] 125 mg PO BID 08/08/19 01/08/20 History Zinc Sulfate [Zinc Sulfate 220mg 220 mg PO DAILY 08/08/19 01/08/20 History capsule] fentaNYL [fentaNYL 75mcg Patch] 75 mcg TD Q72H 08/08/19 01/08/20 History levETIRAcetam [Keppra] 750 mg PO BID 08/08/19 01/08/20 History OXcarbazepine [Trileptal 300mg 600 mg PO BID tab 08/11/19 01/08/20 Rx tablet] Acetaminophen [Tylenol 500mg 500 mg PO Q4HP PRN 01/08/20 01/08/20 History tablet] Atorvastatin Calcium [Atorvastatin 20 mg PO HS 01/08/20 01/08/20 History 20mg Tab] Benztropine Mesylate 2 mg PO TID 01/08/20 01/08/20 History Carbidopa/Levodopa [Sinemet 25-100 1 each PO TID 01/08/20 01/08/20 History mg Tablet] Doxepin HCl [Sinequan 10mg capsule] 10 mg PO Q8HP PRN 01/08/20 01/08/20 History Lactulose [Lactulose 10gm/15ml 30 ml PO DAILY 01/08/20 01/08/20 History Oral Soln] Menthol/Zinc Oxide [Menthol-Zinc 1 applicatio TP TID 01/08/20 01/08/20 History Oxide 0.45%-20%] OLANZapine [Olanzapine] 10 mg PO BID 01/08/20 01/08/20 History haloperidoL [Haloperidol] 10 mg PO TID 01/08/20 01/08/20 History Height: 1.88 m Weight: 90.463 kg Laboratory Results:: Laboratory Results - last 24 hr 01/19/20 05:40: Sodium 146 H, Potassium 2.0 L*, Chloride 106, Carbon Dioxide 34 H, Anion Gap 8.0, BUN 19, Creatinine 1.60 H, Estimated Creat Clear 61, Estimated GFR 44 L, Est GFR ( Amer) 53 L, Glucose 105 H D, Calcium 7.5 L 01/19/20 05:40: WBC 14.7 H, RBC 4.46 L, Hgb 10.8 L, Hct 35.4 L, MCV 79.4 L, MCH 24.2 L, MCHC 30.4 L, RDW 14.9, Plt Count 554 H, Neut % (Auto) 80.3 H, Lymph % (Auto) 9.6 L, [place] % (Auto) 6.3, Eos % (Auto) 3.3, Baso % (Auto) 0.6, Neut # (Auto) 11.8 H, Lymph # (Auto) 1.4, [place] # (Auto) 0.9, Eos # (Auto) 0.5 H, Baso # (Auto) 0.1, Total Counted 100, Neutrophils % (Manual) 86 H, Lymphocytes % (Manual) 7 L, Monocytes % (Manual) 5, Eosinophils % (Manual) 2, Platelet Estimate Slight increase, Hypochromasia 1+ 01/19/20 10:25: Vancomycin Trough 15.0 H Medical History: Reports:: Aneurysm (AAA), Dementia, Depression, Heart Murmur, Hyperlipidemia, Hypertension Denies:: Cancer, Diabetes Mellitus Type 1, Diabetes Mellitus Type 2 Assessment and Plan (1) HCAP (healthcare-associated pneumonia) Current visit: Yes Status: Acute Category: Medical Code(s): J18.9 - Pneu monia, unspecified organism (2) Sepsis Current visit: Yes Status: Acute Qualifiers: Sepsis type: sepsis due to unspecified organism Sepsis acute organ dysfunction status: without acute organ dysfunction Qualified Code(s): A41.9 - Sepsis, unspecified organism Category: Medical Code(s): A41.9 - Sepsis, unspecified organism (3) Parkinson disease Current visit: No Status: Acute Category: Medical Code(s): G20 - Parkinson's disease (4) Pneumonia of both lower lobes due to methicillin resistant Staphylococcus aureus (MRSA) Current visit: Yes Status: Acute Category: Medical Code(s): J15.212 - Pneumonia due to Methicillin resistant Staphylococcus aureus (5) Dysphagia Current visit: No Status: Chronic Qualifiers: Dysphagia type: other dysphagia Qualified Code(s): R13.19 - Other dysphagia Category: Medical Code(s): R13.10 - Dysphagia, unspecified (6) Stage II pressure ulcer of buttock Current visit: Yes Status: Acute Qualifiers: Laterality: right Qualified Code(s): L89.312 - Pressure ulcer of right buttock, stage 2 Category: Medical Code(s): L89.302 - Pressure ulcer of unspecified buttock, stage 2 (7) Respiratory failure with hypoxia Current visit: Yes Status: Acute Qualifiers: Chronicity: acute Qualified Code(s): J96.01 - Acute respiratory failure with hypoxia Category: Medical Code(s): J96.91 - Respiratory failure, unspecified with hypoxia (8) Pleural effusion Current visit: Yes Status: Acute Category: Medical Code(s): J90 - Pleural effusion, not elsewhere classified (9) Hypokalemia Current visit: Yes Status: Acute Category: Medical Code(s): E87.6 - Hypokalemia (10) MARY JANE (acute kidney injury) Current visit: Yes Status: Acute Category: Medical Code(s): N17.9 - Acute kidney failure, unspecified - Assessment and plan all Dx Assessment and Plan for all problems:: PATIENT'S VANCOMYCIN TROUGH LEVEL WAS 15.0 MCG/ML THIS AM. RECOMMEND CONTINUING WITH CURRENT DOSE AND INTERVAL OF VANCOMYCIN 1500 MG Q24H. WILL BE RECHECKED IN THE AM IF PATIENT DOES NOT DISCHARGE.
--- NOTE | 2020-01-19 15:04 | Consult Report ---
*Admission Date: 01/14/20 *Reason for consult:: dysphagia *History of present illness: dysphagia, pneumonia, pleural effusion [facility] History Medical History: Reports:: Aneurysm (AAA), Dementia, Depression, Heart Murmur, Hyperlipidemia, Hypertension Denies:: Cancer, Diabetes Mellitus Type 1, Diabetes Mellitus Type 2 *Have you ever received a pneumonia vaccine?: Yes *Have you received a flu vaccine this season?: Yes Other Medical History: Reports: Anemia, Arthritis Laterality Cases: Left: Other, Right: Total Hip Replacement (left) Other Surgeries: Yes: Colonoscopy (9 years ago), Other (tracheostomy, pinning of left femur and foot) Amputation: No Fractures: No - *Social History Educational Level: Completed High School Smoking Status: Unknown if ever smoked Alcohol Intake: never Substance Use Type: denies use *Occupational Status:: disabled Housing: [facility]dc *Travel in the last 8 weeks: None - Psychiatric History Pschychiatric History:: Reports:: Depression Family Hx:: Unable to obtain Review of Systems - *Neurologic Denies headache(s), Denies seizure-like activity Meds Home Medications Medication Instructions Recorded Confirmed Type Pantoprazole Sodium [Protonix 40mg 40 mg PO DAILY 09/03/18 01/08/20 History tablet] Tamsulosin HCl [Flomax 0.4mg 0.4 mg PO HS 09/03/18 01/08/20 History capsule] polyethylene glycoL 3350 [Miralax 17 gm PO DAILY 09/03/18 01/08/20 History 17gm Packet] LORazepam [Ativan 0.5mg 0.5 mg PO BID 05/21/19 01/08/20 History tablet] Oxycodone HCl [Oxycodone (IR) 5mg 5 mg PO QID 05/21/19 01/08/20 History Cap] bisacodyL [Correctol] 10 mg PO BID 08/04/19 01/08/20 History Ascorbic Acid [Vitamin C 500mg 500 mg PO DAILY 08/08/19 01/08/20 History tablet] M-Vit,Tx,Iron,Mins/Calc/Folic 1 each PO DAILY 08/08/19 01/08/20 History [Therapeutic M Tablet] Potassium Chloride [Micro-K 10mEq 20 meq PO TID 08/08/19 01/08/20 History cap] Simethicone [Gas-X] 125 mg PO BID 08/08/19 01/08/20 History Zinc Sulfate [Zinc Sulfate 220mg 220 mg PO DAILY 08/08/19 01/08/20 History capsule] levETIRAcetam [Keppra] 750 mg PO BID 08/08/19 01/08/20 History OXcarbazepine [Trileptal 300mg 600 mg PO BID tab 08/11/19 01/08/20 Rx tablet] Acetaminophen [Tylenol 500mg 500 mg PO Q4HP PRN 01/08/20 01/08/20 History tablet] Atorvastatin Calcium [Atorvastatin 20 mg PO HS 01/08/20 01/08/20 History 20mg Tab] Benztropine Mesylate 2 mg PO TID 01/08/20 01/08/20 History Carbidopa/Levodopa [Sinemet 25-100 1 each PO TID 01/08/20 01/08/20 History mg Tablet] Lactulose [Lactulose 10gm/15ml 30 ml PO DAILY 01/08/20 01/08/20 History Oral Soln] Menthol/Zinc Oxide [Menthol-Zinc 1 applicatio TP TID 01/08/20 01/08/20 History Oxide 0.45%-20%] OLANZapine [Olanzapine] 10 mg PO BID 01/08/20 01/08/20 History Allergies Allergy/AdvReac Type Severity Reaction Status Date / Time hydroxyzine Allergy Unknown Verified 01/08/20 08:27 allergy reaction nylon Allergy Unknown Verified 01/08/20 08:27 allergy reaction Exam Vital signs and Labs for Last 24 Hours: Temp Pulse Resp BP Pulse Ox 98.5 F 113 H 24 158/82 H 95 01/19/20 11:43 01/19/20 11:43 01/19/20 11:43 01/19/20 11:43 01/19/20 11:43 Laboratory Results - last 24 hr 01/19/20 05:40: Sodium 146 H, Potassium 2.0 L*, Chloride 106, Carbon Dioxide 34 H, Anion Gap 8.0, BUN 19, Creatinine 1.60 H, Estimated Creat Clear 61, Estimated GFR 44 L, Est GFR ( Amer) 53 L, Glucose 105 H D, Calcium 7.5 L 01/19/20 05:40: WBC 14.7 H, RBC 4.46 L, Hgb 10.8 L, Hct 35.4 L, MCV 79.4 L, MCH 24.2 L, MCHC 30.4 L, RDW 14.9, Plt Count 554 H, Neut % (Auto) 80.3 H, Lymph % (Auto) 9.6 L, [place] % (Auto) 6.3, Eos % (Auto) 3.3, Baso % (Auto) 0.6, Neut # (Auto) 11.8 H, Lymph # (Auto) 1.4, [place] # (Auto) 0.9, Eos # (Auto) 0.5 H, Baso # (Auto) 0.1, Total Counted 100, Neutrophils % (Manual) 86 H, Lymphocytes % (Manual) 7 L, Monocytes % (Manual) 5, Eosinophils % (Manual) 2, Platelet Estimate Slight increase, Hypochromasia 1+ 01/19/20 10:25: Vancomycin Trough 15.0 H I & O for Last 24 hours: Intake & Output 01/16/20 01/17/20 01/18/20 01/19/20 23:59 23:59 23:59 23:59 Intake Total 7395 / 7395 4163.667 / 4163.667 2616 / 2736 480 / 480 Output Total Balance 7395 / 7395 4163.667 / 4163.667 2615 / 2735 480 / 480 Weight 209 lb 9 oz 203 lb 8 oz 196 lb 1 oz 199 lb 7 oz - *Routine HEENT Exam Comments: This patient was seen because of a history of dysphagia which she has had for several months. He has had a modified barium swallow as well as a regular barium swallow done showed significant impairment in the oral and hypopharyngeal phase of swallowing there was no significant aspiration and he is some better with modified diets ever he was admitted to hospital because of pneumonitis and a pleural effusion 3 days ago condition is stabilized and he will be discharged on February 19, 2020. At the moment he is not a candidate for a direct laryngoscopy or esophagoscopy under anesthetic and will not be until he gets over the pleural effusion and pneumonitis. 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 Also may have some central causes for his dysphagia. He did have a CT of the brain done on 05/21/2020. That Did not show any acute intracranial findings- I have recommended is a follow-up in 2 weeks time and hopefully his pleural effusion and pneumonitis would have cleared by then and we can make some decisions in to go forwards. Dr Stef Michelle please send a copy to Dr. Js Hua. Internal Medicine - CN: Reslt - Labs CBC & Chem 7: 01/19/20 05:40 01/19/20 05:40 Labs: Short CBC 01/19/20 Range/Units 05:40 WBC 14.7 H (4.8-10.8) K/mm3 Hgb 10.8 L (14.1-18.0) g/dL Hct 35.4 L (42.0-52.0) % Plt Count 554 H (142-424) K/mm3 BMP 01/19/20 05:40 Sodium 146 H Potassium 2.0 L* Chloride 106 Carbon Dioxide 34 H BUN 19 Creatinine 1.60 H Glucose 105 H D Calcium 7.5 L - ABG Interpretation ABG results: 01/07/20 01/07/20 15:11 19:30 ABG pH 7.47 H 7.36 ABG pCO2 33.9 L 38.4 ABG pO2 49.4 L 102.1 H ABG HCO3 24.0 21.4 L ABG Total CO2 25.0 22.5 L ABG O2 Saturation 88 L 98 ABG Base Excess 0.2 -4.0 L Assessment and Plan (1) HCAP (healthcare-associated pneumonia) Current visit: Yes Status: Acute Category: Medical Code(s): J18.9 - Pneumonia, unspecified organism (2) Sepsis Current visit: Yes Status: Acute Qualifiers: Sepsis type: sepsis due to unspecified organism Sepsis acute organ dysfunction status: without acute organ dysfunction Qualified Code(s): A41.9 - Sepsis, unspecified organism Category: Medical Code(s): A41.9 - Sepsis, unspecified organism (3) Parkinson disease Current visit: No Status: Acute Category: Medical Code(s): G20 - Parkinso n's disease (4) Pneumonia of both lower lobes due to methicillin resistant Staphylococcus aureus (MRSA) Current visit: Yes Status: Acute Category: Medical Code(s): J15.212 - Pne umonia due to Methicillin resistant Staphylococcus aureus (5) Dysphagia Current visit: No Status: Chronic Qualifiers: Dysphagia type: other dysphagia Qualified Code(s): R13.19 - Other dysphagia Category: Medical Code(s): R13.10 - Dysphagia, unspecified (6) Stage II pressure ulcer of buttock Current visit: Yes Status: Acute Qualifiers: Laterality: right Qualified Code(s): L89.312 - Pressure ulcer of right buttock, stage 2 Category: Medical Code(s): L89.302 - Pressure ulcer of unspecified buttock, stage 2 (7) Respiratory failure with hypoxia Current visit: Yes Status: Acute Qualifiers: Chronicity: acute Qualified Code(s): J96.01 - Acute respiratory failure with hypoxia Category: Medical Code(s): J96.91 - Respiratory failure, unspecified with h ypoxia (8) Pleural effusion Current visit: Yes Status: Acute Category: Medical Code(s): J90 - Pleural effusion, not elsewhere classified (9) Hypokalemia Current visit: Yes Status: Acute Category: Medical Code(s): E87.6 - Hypokalemia (10) MARY JANE (acute kidney injury) Current visit: Yes Status: Acute Category: Medical Code(s): N17.9 - Acute kidney failure, unspecified
[2020-01-20 00:52] LABS: Microscopic, Urine URINE MICROSCOPIC (MICROSCOPIC)
[2020-01-20 00:56] LABS: Appearance,Urine CLEAR (Clear); Bilirubin,Urine Negative (Negative); Blood, Urine 2+ (Negative); Color,Urine YELLOW (Yellow); Glucose,Urine (UA) Negative (Negative); Ketones,Urine Negative (Negative); Leukocyte Esterase,Urine Negative (Negative); PH,Urine 6.5 (5.0-8.5); Protein,Urine Negative (Negative); Specific Gravity, Urine 1.015 (1.005-1.030); Urobilinogen,Urine 0.2 EU/dl (0.2)
[2020-01-20 01:16] LABS: Bacteria,Urine Trace /lpf
[2020-01-20 06:13] LABS: Basophils # 0.1 K/mm3 (0-0.2); Basophils % 0.6 % (0.1-2.0); Eosinophils # 0.6 K/mm3 (0.0-0.4); Eosinophils % 4.6 % (0.1-12.0); Hemoglobin 10.9 g/dL (14.1-18.0); Lymphocytes # 1.4 K/mm3 (0.7-4.5); Lymphocytes % 10.9 % (10-50); Mean Corpuscular HGB Conc 30.4 g/dL (31.8-35.4); Mean Platelet Volume 7.8 fl (7.4-10.4); Monocytes # 1.1 K/mm3 (0.1-1.0); Monocytes % 8.5 % (1.7-9.3); Neutrophils # 9.9 K/mm3 (1.8-7.8); Neutrophils % 75.4 % (37.0-80.0); Platelet Count 567 K/mm3 (142-424); Red Blood Count 4.56 M/mm3 (4.60-6.20); Red Cell Distribution Width 14.9 % (11.5-17.5); White Blood Count 13.2 K/mm3 (4.8-10.8)
[2020-01-20 06:50] LABS: Calcium 7.6 mg/dl (8.4-10.2)
--- NOTE | 2020-01-20 08:55 | Progress Note ---
Internal Medicine - PN: Subj *Date: 01/20/20 *Time: 11:32 Interval history: pt states he feels well. per staff no loose stool over night and unable to obtain urine. Exam Vital signs and Labs for Last 24 Hours: Temp Pulse Resp BP Pulse Ox 98.7 F 103 H 28 H 130/77 93 L 01/20/20 07:48 01/20/20 07:48 01/20/20 07:48 01/20/20 07:48 01/20/20 07:48 Laboratory Results - last 24 hr 01/19/20 10:25: Vancomycin Trough 15.0 H 01/20/20 00:25: Urine Color Yellow, Urine Appearance Clear, Urine pH 6.5, Ur Specific [place] 1.015, Urine Protein Negative, Urine Glucose (UA) Negative, Urine Ketones Negative, Urine Blood 2+, Urine Nitrate Negative, Urine Bilirubin Negative, Urine Urobilinogen 0.2, Ur Leukocyte Esterase Negative, Urine RBC 10- 20, Urine WBC 3-5, Ur Squamous Epith Cells 3-5, Urine Bacteria Trace 01/20/20 05:48: Sodium 146 H, Potassium 2.0 L*, Chloride 104, Carbon Dioxide 36 H, Anion Gap 8.0, BUN 15, Creatinine 1.60 H, Estimated Creat Clear 61, Estimated GFR 44 L, Est GFR ( Amer) 53 L, Glucose 108 H, Calcium 7.6 L 01/20/20 05:48: WBC 13.2 H, RBC 4.56 L, Hgb 10.9 L, Hct 36.0 L, MCV 79.0 L, MCH 24.0 L, MCHC 30.4 L, RDW 14.9, Plt Count 567 H, MPV 7.8, Neut % (Auto) 75.4, Lymph % (Auto) 10.9, [place] % (Auto) 8.5, Eos % (Auto) 4.6, Baso % (Auto) 0.6, Neut # (Auto) 9.9 H, Lymph # (Auto) 1.4, [place] # (Auto) 1.1 H, Eos # (Auto) 0.6 H , Baso # (Auto) 0.1 I & O for Last 24 hours: Intake & Output 01/17/20 01/18/20 01/19/20 01/20/20 11:59 11:59 11:59 11:59 Intake Total 5783.667 / 5783.667 3276 / 3276 1200 / 1200 4337 / 4337 Output Total 251 / 251 Balance 5783.667 / 5783.667 3275 / 3275 1200 / 1200 4086 / 4086 Weight 203 lb 8 oz 196 lb 1 oz 199 lb 7 oz 197 lb - Constitutional no acute distress - *Routine HEENT Exam Head: Present: normocephalic Eye: Present: PERRL ENT: Present: mucous membranes moist - *Routine Neck Exam Present: supple. Absent: lymphadenopathy - *Routine Respiratory Exam Present: decreased breath sounds - *Routine Cardiovascular Exam Present: RRR - *Routine Abdominal Exam Present: soft, normoactive bowel sounds. Absent: tenderness - *Routine Extremities Exam Present: full ROM. Absent: cyanosis, clubbing, edema - *Routine Skin Exam Present: warm, wounds. Absent: rash Comments: red rash jesus cuptus to groining stage 2 to rt buttocks - *Routine Neurological Exam Present: alert, oriented X3 - Routine Psychiatric Exam Present: normal affect Assessment and Plan (1) HCAP (healthcare-associated pneumonia) Current visit: Yes Status: Acute Category: Medical Code(s): J18.9 - Pneumonia, unspecified organism (2) Sepsis Current visit: Yes Status: Acute Qualifiers: Sepsis type: sepsis due to unspecified organism Sepsis acute organ dysfunc tion status: without acute organ dysfunction Qualified Code(s): A41.9 - Sepsis, unspecified organism Category: Medical Code(s): A41.9 - Sepsis, unspecified organism (3) Parkinson disease Current visit: No Status: Acute Category: Medical Code(s): G20 - Parkinson's disease (4) Pneumonia of both lower lobes due to methicillin resistant Staphylococcus aureus (MRSA) Current visit: Yes Status: Acute Category: Medical Code(s): J15.212 - Pneumonia due to Methicillin resistant Staphylococcus aureus (5) Dysphagia Current visit: No Status: Chronic Qualifiers: Dysphagia type: other dysphagia Qualified Code(s): R13.19 - Other dysphagia Category: Medical Code(s): R13.10 - Dysphagia, unspecified (6) Stage II pressure ulcer of buttock Current visit: Yes Status: Acute Qualifiers: Laterality: right Qualified Code(s): L89.312 - Pressure ulcer of right buttock, stage 2 Category: Medical Code(s): L89.302 - Pressure ulcer of unspecified buttock, stage 2 (7) Respiratory failure with hypoxia Current visit: Yes Status: Acute Qualifiers: Chronicity: acute Qualified Code(s): J96.01 - Acute respiratory failure with hypoxia Category: Medical Code(s): J96.91 - Respiratory failure, unspecified with hypoxia (8) Pleural effusion Current visit: Yes Status: Acute Category: Medical Code(s): J90 - Pleural effusion, not elsewhere classified (9) Hypokalemia Current visit: Yes Status: Acute Category: Medical Code(s): E87.6 - Hypokalemia (10) MARY JANE (acute kidney injury) Current visit: Yes Status: Acute Category: Medical Code(s): N17.9 - Acute kidney failure, unspecified (11) Tinea corporis Current visit: Yes Status: Acute Category: Medical Code(s): B35.4 - Tinea corporis - Assessment and plan all Dx Assessment and Plan for all problems:: rounded with dr roberts all orders per armando x ray urine stool change antibiotics
[2020-01-20 13:52] LABS: Anion Gap 7.5 mEq/L (5-15); Calcium 7.6 mg/dl (8.4-10.2)
[2020-01-20 20:49] LABS: Anion Gap 7.3 mEq/L (5-15); Calcium 7.8 mg/dl (8.4-10.2)
[2020-01-20 21:40] LABS: Anion Gap 9.3 mEq/L (5-15); Calcium 7.7 mg/dl (8.4-10.2)
[2020-01-21 05:54] LABS: Basophils # 0.1 K/mm3 (0-0.2); Basophils % 0.6 % (0.1-2.0); Eosinophils # 0.6 K/mm3 (0.0-0.4); Eosinophils % 4.6 % (0.1-12.0); Lymphocytes # 1.2 K/mm3 (0.7-4.5); Lymphocytes % 10.5 % (10-50); Mean Corpuscular HGB Conc 30.5 g/dL (31.8-35.4); Mean Corpuscular Volume 78.9 fl (80-94); Monocytes # 0.9 K/mm3 (0.1-1.0); Monocytes % 7.5 % (1.7-9.3); Neutrophils # 9.1 K/mm3 (1.8-7.8); Neutrophils % 76.8 % (37.0-80.0); Platelet Count 552 K/mm3 (142-424); Red Blood Count 4.56 M/mm3 (4.60-6.20); Red Cell Distribution Width 14.9 % (11.5-17.5); White Blood Count 11.8 K/mm3 (4.8-10.8)
[2020-01-21 05:58] LABS: Anion Gap 5.2 mEq/L (5-15); Calcium 7.8 mg/dl (8.4-10.2)
--- NOTE | 2020-01-21 09:05 | Progress Note ---
Internal Medicine - PN: Subj *Date: 01/22/20 *Time: 07:58 Interval history: had sz last pm but at baseline this am, still low k and renal function better Exam Vital signs and Labs for Last 24 Hours: Temp Pulse Resp BP Pulse Ox 100.5 F H 87 20 144/82 H 94 L 01/21/20 08:00 01/21/20 08:00 01/21/20 08:00 01/21/20 08:00 01/21/20 08:00 Laboratory Results - last 24 hr 01/20/20 09:45: Stl Aeromonas (PCR) Not detected, Stl C. cayetanensis PCR Not detected, Stool Rotavirus (PCR) Not detected, Stl Adenov F 40/41 PCR Not detected, Stool Astrovirus (PCR) Not detected, Stool Campylobacter PCR Not detected, Stl C.difficile Tox PCR Detected A, Stool Cryptosporidium PCR Not detected, Stl E.coli Shiga Tox PCR Not detected, Stool E coli O157 PCR Not detected, Stl Enterotoxigenic E PCR Not detected, Stool EPEC (PCR) Not detected, Stool EAEC (PCR) Not detected, Stl E. histolytica PCR Not detected, Stool Giardia Lamblia PCR Not detected, Stool Salmonella PCR Not detected, Stool Sapovirus (PCR) Not detected, Stl P. shigelloides PCR Not detected, Stl Shigella/EIEC PCR Not detected, St Y.enterocolitica PCR Not detected, Stool Vibrio (PCR) Not detected, Stl Vibrio cholerae PCR Not detected, Stl Norovirus GI/GII PCR Not detected 01/20/20 10:30: Vancomycin Trough 13.9 H 01/20/20 13:25: Sodium 144, Potassium 2.5 L* D, Chloride 104, Carbon Dioxide 35 H, Anion Gap 7.5, BUN 18, Creatinine 1.70 H, Estimated Creat Clear 57, Estimated GFR 41 L, Est GFR ( Amer) 50 L, Glucose 148 H D, Calcium 7.6 L 01/20/20 20:20: Sodium 145, Potassium 2.3 L*, Chloride 103, Carbon Dioxide 37 H, Anion Gap 7.3, BUN 19, Creatinine 1.60 H, Estimated Creat Clear 61, Estimated GFR 44 L, Est GFR ( Amer) 53 L, Glucose 150 H, Calcium 7.8 L 01/20/20 21:20: Sodium 145, Potassium 2.3 L*, Chloride 103, Carbon Dioxide 35 H, Anion Gap 9.3, BUN 17, Creatinine 1.50 H, Estimated Creat Clear 65, Estimated GFR 47 L, Est GFR ( Amer) 57 L, Glucose 180 H, Calcium 7.7 L 01/20/20 21:20: Magnesium 1.6 01/21/20 05:20: WBC Cancelled, Corrected WBC Cancelled, RBC Cancelled, Hgb Cancelled, Hct Cancelled, MCV Cancelled, MCH Cancelled, MCHC Cancelled, RDW Cancelled, Plt Count Cancelled, Neut % (Auto) Cancelled, Lymph % (Auto) C ancelled, [place] % (Auto) Cancelled, Eos % (Auto) Cancelled, Baso % (Auto) Cancelled, Neut # (Auto) Cancelled, Lymph # (Auto) Cancelled, [place] # (Auto) Cancelled, Eos # (Auto) Cancelled, Baso # (Auto) Cancelled, Total Counted Cancelled, Neutrophils % (Manual) Cancelled, Band Neutrophils % Cancelled, Lymphocytes % (Manual) Cancelled, Atypical Lymphs % Cancelled, Monocytes % (Manual) Cancelled, Eosinophils % (Manual) Cancelled, Basophils % (Manual) Cancelled, Metamyelocytes % Cancelled, Myelocytes % Cancelled, Promyelocytes % Cancelled, Blast Cells % Cancelled, Nucleated RBCs Cancelled, Differential Comment Cancelled, Hypersegmented Neuts Cancelled, Toxic Granulation Cancelled, Toxic Vacuolation Cancelled, Dohle Bodies Cancelled, [place]ug[place] Rods Cancelled, Platelet Estimate Cancelled, Giant Platelets Cancelled, RBC Morphology Cancelled, Polychromasia Cancelled, Hypochromasia Cancelled, Poikilocytosis Cancelled, Basophilic Stippling Cancelled, Anisocytosis Cancelled, Microcytosis Cancelled, Macrocytosis Cancelled, Spherocytes Cancelled, Pappenheimer Bodies Cancelled, Sickle Cells Cancelled, Target Cells Cancelled, Tear Drop Cells Cancelled, Ovalocytes Cancelled, Stomatocytes Cancelled, Helmet Cells Cancelled, [place] Bodies Cancelled, [place] Rings Cancelled, [place] Cells Cancelled, Acanthocytes (Spur) Cancelled, Rouleaux Cancelled, Schistocytes Cancelled 01/21/20 05:30: Sodium 144, Potassium 2.2 L*, Chloride 105, Carbon Dioxide 36 H, Anion Gap 5.2, BUN 17, Creatinine 1.50 H, Estimated Creat Clear 65, Estimated GFR 47 L, Est GFR ( Amer) 57 L, Glucose 98 D, Calcium 7.8 L 01/21/20 05:30: WBC 11.8 H, RBC 4.56 L, Hgb 11.0 L, Hct 36.0 L, MCV 78.9 L, MCH 24.0 L, MCHC 30.5 L, RDW 14.9, Plt Count 552 H, MPV 7.0 L, Neut % (Auto) 76.8, Lymph % (Auto) 10.5, [place] % (Auto) 7.5, Eos % (Auto) 4.6, Baso % (Auto) 0.6, Neut # (Auto) 9.1 H, Lymph # (Auto) 1.2, [place] # (Auto) 0.9, Eos # (Auto) 0.6 H, Baso # (Auto) 0.1 I & O for Last 24 hours: Intake & Output 01/18/20 01/19/20 01/20/20 01/21/20 11:59 11:59 11:59 11:59 Intake Total 3276 / 3276 1200 / 1200 4507 / 4507 5005.667 / 5005.667 Output Total 251 / 251 801 / 801 Balance 3275 / 3275 1200 / 1200 4256 / 4256 4204.667 / 4204.667 Weight 196 lb 1 oz 199 lb 7 oz 197 lb 199 lb 4.766 oz - Constitutional no acute distress - *Routine HEENT Exam Head: Present: normocephalic Eye: Present: EOMI, PERRL ENT: Present: mucous membranes dry - *Routine Neck Exam Present: supple - *Routine Respiratory Exam Present: decreased breath sounds - *Routine Cardiovascular Exam Present: RRR, murmur - *Routine Abdominal Exam Present: soft - *Routine Extremities Exam Absent: calf tenderness - *Routine Skin Exam Absent: petechiae - *Routine Neurological Exam Present: alert, CN II-XII intact - Routine Psychiatric Exam Present: unable to assess Assessment and Plan (1) HCAP (healthcare-associated pneumonia) Current visit: Yes Status: Acute Category: Medical Code(s): J18.9 - Pneumonia, unspecified organism (2) Sepsis Current visit: Yes Status: Acute Qualifiers: Sepsis type: sepsis due to unspecified organism Sepsis acute organ dysfunction status: without acute organ dysfunction Qualified Code(s): A41.9 - Sepsis, unspecified organism Category: Medical Code(s): A41.9 - Sepsis, unspecified organism (3) Parkinson disease Current visit: No Status: Acute Category: Medical Code(s): G20 - Parkinson's disease (4) Pneumonia of both lower lobes due to methicillin resistant Staphylococcus aureus (MRSA) Current visit: Yes Status: Acute Category: Medical Code(s): J15.212 - Pneumonia due to Methicillin resistant Staphylococcus aureus (5) Dysphagia Current visit: No Status: Chronic Qualifiers: Dysphagia type: other dysphagia Qualified Code(s): R13.19 - Other dysphagia Category: Medical Code(s): R13.10 - Dysphagia, unspecified (6) Stage II pressure ulcer of buttock Current visit: Yes Status: Acute Qualifiers: Laterality: right Qualified Code(s): L89.312 - Pressure ulcer of right buttock, stage 2 Category: Medical Code(s): L89.302 - Pressure ulcer of unspecified buttock, stage 2 (7) Respiratory failure with hypoxia Current visit: Yes Status: Acute Qualifiers: Chronicity: acute Qualified Code(s): J96.01 - Acute respiratory failure with hypoxia Category: Medical Code(s): J96.91 - Respiratory failure, unspecified with hypoxia (8) Pleural effusion Current visit: Yes Status: Acute Category: Medical Code(s): J90 - Pleural effusion, not elsewhere classified (9) Hypokalemia Current visit: Yes Status: Acute Category: Medical Code(s): E87.6 - Hypokalemia (10) MARY JANE (acute kidney injury) Current visit: Yes Status: Acute Category: Medical Code(s): N17.9 - Acute kidney failure, unspecified (11) Tinea corporis Current visit: Yes Status: Acute Category: Medical Code(s): B35.4 - Tinea corporis (12) Epileptic seizure Current visit: No Status: Acute Qualifiers: Epilepsy type: generalized idiopathic Intractability: not intractable Status epilepticus: without status epilepticus Qualified Code(s): G40.309 - Generalized idiopathic epilepsy and epileptic syndromes, not intractable, without status epilepticus Category: Medical Code(s): G40.909 - Epilepsy, unspecified, not intractable, without status epilepticus (13) C. difficile enteritis Current visit: Yes Status: Acute Category: Medical Code(s): A04.72 - Enterocolitis due to Clostridium difficile, not specified as recurrent
[2020-01-21 22:12] LABS: Calcium 7.7 mg/dl (8.4-10.2)
[2020-01-21 22:13] LABS: Anion Gap 8.7 mEq/L (5-15)
[2020-01-22 07:03] LABS: Basophils # 0.1 K/mm3 (0-0.2); Basophils % 1.1 % (0.1-2.0); Eosinophils # 0.7 K/mm3 (0.0-0.4); Eosinophils % 6.6 % (0.1-12.0); Hematocrit 37.8 % (42.0-52.0); Hemoglobin 11.5 g/dL (14.1-18.0); Lymphocytes # 1.4 K/mm3 (0.7-4.5); Lymphocytes % 13.4 % (10-50); Mean Corpuscular HGB Conc 30.4 g/dL (31.8-35.4); Mean Corpuscular Volume 78.8 fl (80-94); Monocytes # 0.6 K/mm3 (0.1-1.0); Monocytes % 5.9 % (1.7-9.3); Neutrophils # 7.8 K/mm3 (1.8-7.8); Platelet Count 600 K/mm3 (142-424); Red Cell Distribution Width 14.9 % (11.5-17.5); White Blood Count 10.7 K/mm3 (4.8-10.8)
[2020-01-22 07:05] LABS: Anion Gap 9.7 mEq/L (5-15)
[2020-01-22 07:06] LABS: Calcium 8.2 mg/dl (8.4-10.2)
[2020-01-22 07:17] LABS: Lymphocytes % 14 % (10-50); Neutrophils % 84 % (42-76); Total Cells Counted 100
[2020-01-22 07:18] LABS: Hypochromasia 3+; Rouleaux 2+
--- NOTE | 2020-01-22 08:02 | Progress Note ---
Internal Medicine - PN: Subj *Date: 01/22/20 *Time: 08:28 Interval history: pt with some improvement in k and temp better - arousable - discussed with phar about fluids and k Exam Vital signs and Labs for Last 24 Hours: Temp Pulse Resp BP Pulse Ox 98.5 F 94 H 20 156/101 H 94 L 01/22/20 04:00 01/22/20 04:55 01/22/20 04:00 01/22/20 04:00 01/22/20 04:55 Laboratory Results - last 24 hr 01/21/20 21:50: Sodium 145, Potassium 2.7 L* D, Chloride 106, Carbon Dioxide 33 H, Anion Gap 8.7, BUN 14, Creatinine 1.20, Estimated Creat Clear 82, Estimated GFR 61, Est GFR ( Amer) 74 D, Glucose 90, Calcium 7.7 L 01/22/20 06:20: Sodium 146 H, Potassium 2.7 L*, Chloride 104, Carbon Dioxide 35 H, Anion Gap 9.7, BUN 12, Creatinine 1.30 H, Estimated Creat Clear 75, Estimated GFR 56 L, Est GFR ( Amer) 68, Glucose 85, Calcium 8.2 L 01/22/20 06:20: WBC 10.7, RBC 4.80, Hgb 11.5 L, Hct 37.8 L, MCV 78.8 L, MCH 24.0 L, MCHC 30.4 L, RDW 14.9, Plt Count 600 H, Neut % (Auto) 73.0, Lymph % (Auto) 13.4, [place] % (Auto) 5.9, Eos % (Auto) 6.6, Baso % (Auto) 1.1, Neut # (Auto) 7.8, Lymph # (Auto) 1.4, [place] # (Auto) 0.6, Eos # (Auto) 0.7 H, Baso # (Auto) 0.1, Total Counted 100, Neutrophils % (Manual) 84 H, Band Neutrophils % 2.0, Lymphocytes % (Manual) 14, Platelet Estimate Marked increase, Hypochromasia 3+, Microcytosis 1+, Rouleaux 2+ I & O for Last 24 hours: Intake & Output 01/19/20 01/20/20 01/21/20 01/22/20 11:59 11:59 11:59 11:59 Intake Total 1200 / 1200 4507 / 4507 5105.667 / 5105.667 3628 / 3628 Output Total 251 / 251 801 / 801 276 / 276 Balance 1200 / 1200 4256 / 4256 4304.667 / 4304.667 3352 / 3352 Weight 199 lb 7 oz 197 lb 199 lb 4.766 oz 197 lb 8 oz Microbiology Reports for the Last 24 Hours: Microbiology 01/16/20 10:30 Blood Blood Culture - Final NO GROWTH AFTER 5 DAYS 01/16/20 09:45 Blood Blood Culture - Final NO GROWTH AFTER 5 DAYS - Constitutional no acute distress - *Routine HEENT Exam Head: Present: normocephalic Eye: Present: EOMI, PERRL ENT: Present: mucous membranes dry - *Routine Neck Exam Absent: JVD - *Routine Respiratory Exam Present: decreased breath sounds - *Routine Cardiovascular Exam Present: RRR, murmur - *Routine Abdominal Exam Present: soft - *Routine Extremities Exam Absent: calf tenderness - *Routine Skin Exam Present: intact - *Routine Neurological Exam Absent: motor deficit - Routine Psychiatric Exam Present: unable to assess Assessment and Plan (1) HCAP (healthcare-associated pneumonia) Current visit: Yes Status: Acute Category: Medical Code(s): J18.9 - Pneumonia, unspecified organism (2) Sepsis Current visit: Yes Status: Acute Qualifiers: Sepsis type: sepsis due to unspecified organism Sepsis acute organ dysfunction status: without acute organ dysfunction Qualified Code(s): A41.9 - Sepsis, unspecified organism Category: Medical Code(s): A41.9 - Sepsis, unspecified organism (3) Parkinson disease Current visit: No Status: Acute Category: Medical Code(s): G20 - Parkinson's disease (4) Pneumonia of both lower lobes due to methicillin resistant Staphylococcus aureus (MRSA) Current visit: Yes Status: Acute Category: Medical Code(s): J15.212 - Pneumonia due to Methicillin resistant Staphylococcus aureus (5) Dysphagia Current visit: No Status: Chronic Qualifiers: Dysphagia type: other dysphagia Qualified Code(s): R13.19 - Other dysphagia Category: Medical Code(s): R13.10 - Dysphagia, unspecified (6) Stage II pressure ulcer of buttock Current visit: Yes Status: Acute Qualifiers: Laterality: right Qualified Code(s): L89.312 - Pressure ulcer of right buttock, stage 2 Category: Medical Code(s): L89.302 - Pressure ulcer of unspecified buttock, stage 2 (7) Respiratory failure with hypoxia Current visit: Yes Status: Acute Qualifiers: Chronicity: acute Qualified Code(s): J96.01 - Acute respiratory failure with hypoxia Category: Medical Code(s): J96.91 - Respiratory failure, unspecified with hypoxia (8) Pleural effusion Current visit: Yes Status: Acute Category: Medical Code(s): J90 - Pleural effusion, not elsewhere classified (9) Hypokalemia Current visit: Yes Status: Acute Category: Medical Code(s): E87.6 - Hypokalemia (10) MARY JANE (acute kidney injury) Current visit: Yes Status: Acute Category: Medical Code(s): N17.9 - Acute kidney failure, unspecified (11) Tinea corporis Current visit: Yes Status: Acute Category: Medical Code(s): B35.4 - Tinea corporis (12) Epileptic seizure Current visit: No Status: Acute Qualifiers: Epilepsy type: generalized idiopathic Intractability: not intractable Status epilepticus: without status epilepticus Qualified Code(s): G40.309 - Generalized idiopathic epilepsy and epileptic syndromes, not intractable, without status epilepticus Category: Medical Code(s): G40.909 - Epilepsy, unspecified, not intractable, without status epilepticus (13) C. difficile enteritis Current visit: Yes Status: Acute Category: Medical Code(s): A04.72 - Enterocolitis due to Clostridium difficile, not specified as recurrent
[2020-01-22 21:06] LABS: Anion Gap 9.9 mEq/L (5-15); Calcium 8.2 mg/dl (8.4-10.2)
[2020-01-23 06:13] LABS: Basophils # 0.1 K/mm3 (0-0.2); Basophils % 0.9 % (0.1-2.0); Eosinophils # 0.7 K/mm3 (0.0-0.4); Hematocrit 36.8 % (42.0-52.0); Hemoglobin 11.1 g/dL (14.1-18.0); Lymphocytes # 1.6 K/mm3 (0.7-4.5); Lymphocytes % 16.1 % (10-50); Mean Corpuscular HGB Conc 30.1 g/dL (31.8-35.4); Mean Corpuscular Volume 78.8 fl (80-94); Mean Platelet Volume 7.1 fl (7.4-10.4); Monocytes # 0.7 K/mm3 (0.1-1.0); Monocytes % 6.7 % (1.7-9.3); Neutrophils # 6.9 K/mm3 (1.8-7.8); Neutrophils % 69.3 % (37.0-80.0); Platelet Count 578 K/mm3 (142-424); Red Blood Count 4.66 M/mm3 (4.60-6.20); Red Cell Distribution Width 15.1 % (11.5-17.5)
[2020-01-23 06:23] LABS: Calcium 8.3 mg/dl (8.4-10.2)
--- NOTE | 2020-01-23 08:14 | Progress Note ---
Internal Medicine - PN: Subj *Date: 01/23/20 *Time: 08:13 Exam Vital signs and Labs for Last 24 Hours: Temp Pulse Resp BP Pulse Ox 99.8 F H 94 H 20 168/74 H 97 01/23/20 07:51 01/23/20 07:51 01/23/20 07:51 01/23/20 07:51 01/23/20 07:51 Laboratory Results - last 24 hr 01/22/20 20:43: Sodium 144, Potassium 2.9 L*, Chloride 104, Carbon Dioxide 33 H, Anion Gap 9.9, BUN 14, Creatinine 1.30 H, Estimated Creat Clear 75, Estimated GFR 56 L, Est GFR ( Amer) 68, Glucose 123 H D, Calcium 8.2 L 01/23/20 05:30: Sodium 145, Potassium 3.0 L, Chloride 107, Carbon Dioxide 32 H, Anion Gap 9.0, BUN 12, Creatinine 1.20, Estimated Creat Clear 79, Estimated GFR 61, Est GFR ( Amer) 74, Glucose 110 H, Calcium 8.3 L 01/23/20 05:30: WBC 10.0, RBC 4.66, Hgb 11.1 L, Hct 36.8 L, MCV 78.8 L, MCH 23.7 L, MCHC 30.1 L, RDW 15.1, Plt Count 578 H, MPV 7.1 L, Neut % (Auto) 69.3, Lymph % (Auto) 16.1, [place] % (Auto) 6.7, Eos % (Auto) 7.0, Baso % (Auto) 0.9, Neut # (Auto) 6.9, Lymph # (Auto) 1.6, [place] # (Auto) 0.7, Eos # (Auto) 0.7 H, Baso # (Auto) 0.1 I & O for Last 24 hours: Intake & Output 01/20/20 01/21/20 01/22/20 01/23/20 23:59 23:59 23:59 23:59 Intake Total 4698.667 / 4698.667 4691 / 4691 3154.435 / 3154.435 2394 / 2394 Output Total 251 / 251 1075 / 1076 250 / 250 Balance 4447.667 / 4447.667 3616 / 3615 3153.435 / 3153.435 2144 / 2144 Weight 89.358 kg 90.4 kg 89.584 kg 87.231 kg Assessment and Plan (1) HCAP (healthcare-associated pneumonia) Current visit: Yes Status: Acute Category: Medical Code(s): J18.9 - Pneumonia, unspecified organism (2) Sepsis Current visit: Yes Status: Acute Qualifiers: Sepsis type: sepsis due to unspecified organism Sepsis acute organ dysfunction status: without acute organ dysfunction Qualified Code(s): A41.9 - Sepsis, unspecified organism Category: Medical Code(s): A41.9 - Sepsis, unspecified organism (3) Parkinson disease Current visit: No Status: Acute Category: Medical Code(s): G20 - Parkinson's disease (4) Pneumonia of both lower lobes due to methicillin resistant Staphylococcus aureus (MRSA) Current visit: Yes Status: Acute Category: Medical Code(s): J15.212 - Pne umonia due to Methicillin resistant Staphylococcus aureus (5) Dysphagia Current visit: No Status: Chronic Qualifiers: Dysphagia type: other dysphagia Qualified Code(s): R13.19 - Other dysphagia Category: Medical Code(s): R13.10 - Dysphagia, unspecified (6) Stage II pressure ulcer of buttock Current visit: Yes Status: Acute Qualifiers: Laterality: right Qualified Code(s): L89.312 - Pressure ulcer of right buttock, stage 2 Category: Medical Code(s): L89.302 - Pressure ulcer of unspecified buttock, stage 2 (7) Respiratory failure with hypoxia Current visit: Yes Status: Acute Qualifiers: Chronicity: acute Qualified Code(s): J96.01 - Acute respiratory failure with hypoxia Category: Medical Code(s): J96.91 - Respiratory failure, unspecified with hypoxia (8) Pleural effusion Current visit: Yes Status: Acute Category: Medical Code(s): J90 - Pleural effusion, not elsewhere classified (9) Hypokalemia Current visit: Yes Status: Acute Category: Medical Code(s): E87.6 - Hypokalemia (10) MARY JANE (acute kidney injury) Current visit: Yes Status: Acute Category: Medical Code(s): N17.9 - Acute kidney failure, unspecified (11) Tinea corporis Current visit: Yes Status: Acute Category: Medical Code(s): B35.4 - Tinea corporis (12) Epileptic seizure Current visit: No Status: Acute Qualifiers: Epilepsy type: generalized idiopathic Intractability: not intractable Status epilepticus: without status epilepticus Qualified Code(s): G40.309 - Generalized idiopathic epilepsy and epileptic syndromes, not intractable, without status epilepticus Category: Medical Code(s): G40.909 - Epilepsy, unspecified, not intractable, without status epilepticus (13) C. difficile enteritis Current visit: Yes Status: Acute Category: Medical Code(s): A04.72 - Enterocolitis due to Clostridium difficile, not specified as recurrent The patient's infection will respond to the chosen ABx?: Yes Is the patient receiving the right drug, dose, and route?: Yes Could a more targeted ABx be ordered?: No (ON PO VANC FOR C DIFF)
--- NOTE | 2020-01-23 13:33 | Progress Note ---
Internal Medicine - PN: Subj *Date: 01/23/20 *Time: 13:29 Interval history: pt has eaten breakfast and is doing well. plan to dc to [facility] today Exam Vital signs and Labs for Last 24 Hours: Temp Pulse Resp BP Pulse Ox 99.8 F H 100 H 20 168/74 H 97 01/23/20 07:51 01/23/20 09:00 01/23/20 07:51 01/23/20 07:51 01/23/20 07:51 Laboratory Results - last 24 hr 01/22/20 20:43: Sodium 144, Potassium 2.9 L*, Chloride 104, Carbon Dioxide 33 H, Anion Gap 9.9, BUN 14, Creatinine 1.30 H, Estimated Creat Clear 75, Estimated GFR 56 L, Est GFR ( Amer) 68, Glucose 123 H D, Calcium 8.2 L 01/23/20 05:30: Sodium 145, Potassium 3.0 L, Chloride 107, Carbon Dioxide 32 H, Anion Gap 9.0, BUN 12, Creatinine 1.20, Estimated Creat Clear 79, Estimated GFR 61, Est GFR ( Amer) 74, Glucose 110 H, Calcium 8.3 L 01/23/20 05:30: WBC 10.0, RBC 4.66, Hgb 11.1 L, Hct 36.8 L, MCV 78.8 L, MCH 23.7 L, MCHC 30.1 L, RDW 15.1, Plt Count 578 H, MPV 7.1 L, Neut % (Auto) 69.3, Lymph % (Auto) 16.1, [place] % (Auto) 6.7, Eos % (Auto) 7.0, Baso % (Auto) 0.9, Neut # (Auto) 6.9, Lymph # (Auto) 1.6, [place] # (Auto) 0.7, Eos # (Auto) 0.7 H, Baso # (Auto) 0.1 I & O for Last 24 hours: Intake & Output 01/21/20 01/22/20 01/23/20 01/24/20 11:59 11:59 11:59 11:59 Intake Total 5105.667 / 5105.667 3837.435 / 3837.435 4118 / 4118 Output Total 801 / 801 276 / 276 250 / 250 Balance 4304.667 / 4304.667 3561.435 / 3561.435 3868 / 3868 Weight 199 lb 4.766 oz 197 lb 8 oz 192 lb 5 oz - Constitutional no acute distress, chronically ill appearing - *Routine HEENT Exam Head: Present: normocephalic Eye: Present: PERRL ENT: Present: mucous membranes moist - *Routine Neck Exam Present: supple. Absent: lymphadenopathy Comments: trache stoma - *Routine Respiratory Exam Present: decreased breath sounds, CTA bilaterally - *Routine Cardiovascular Exam Present: RRR - *Routine Abdominal Exam Present: soft, normoactive bowel sounds. Absent: tenderness - *Routine Extremities Exam Present: full ROM, normal capillary refill. Absent: cyanosis, clubbing, edema - *Routine Skin Exam Present: warm. Absent: rash Comments: redness to groin has improved stage 2 on rt buttocks - *Routine Neurological Exam Present: alert, oriented X3 - Routine Psychiatric Exam Present: normal affect Assessment and Plan (1) HCAP (healthcare-associated pneumonia) Current visit: Yes Status: Acute Category: Medical Code(s): J18.9 - Pneumonia, unspecified organism (2) Sepsis Current visit: Yes Status: Acute Qualifiers: Sepsis type: sepsis due to unspecified organism Sepsis acute organ dysfunction status: without acute organ dysfunction Qualified Code(s): A41.9 - Sepsis, unspecified organism Category: Medical Code(s): A41.9 - Sepsis, unspecified organism (3) Parkinson disease Current visit: No Status: Acute Category: Medical Code(s): G20 - Parkinson's disease (4) Pneumonia of both lower lobes due to methicillin resistant Staphylococcus aureus (MRSA) Current visit: Yes Status: Acute Category: Medical Code(s): J15.212 - Pneumonia due to Methicillin resistant Staphylococcus aureus (5) Dysphagia Current visit: No Status: Chronic Qualifiers: Dysphagia type: other dysphagia Qualified Code(s): R13.19 - Other dysphagia Category: Medical Code(s): R13.10 - Dysphagia, unspecified (6) Stage II pressure ulcer of buttock Current visit: Yes Status: Acute Qualifiers: Laterality: right Qualified Code(s): L89.312 - Pressure ulcer of right buttock, stage 2 Category: Medical Code(s): L89.302 - Pressure ulcer of unspecified buttock, stage 2 (7) Respiratory failure with hypoxia Current visit: Yes Status: Acute Qualifiers: Chronicity: acute Qualified Code(s): J96.01 - Acute respiratory failure with hypoxia Category: Medical Code(s): J96.91 - Respiratory failure, unspecified with hypoxia (8) Pleural effusion Current visit: Yes Status: Acute Category: Medical Code(s): J90 - Pleural effusion, not elsewhere classified (9) Hypokalemia Current visit: Yes Status: Acute Category: Medical Code(s): E87.6 - Hypokalemia (10) MARY JANE (acute kidney injury) Current visit: Yes Status: Acute Category: Medical Code(s): N17.9 - Acute kidney failure, unspecified (11) Tinea corporis Current visit: Yes Status: Acute Category: Medical Code(s): B35.4 - Tinea corporis (12) Epileptic seizure Current visit: No Status: Acute Qualifiers: Epilepsy type: generalized idiopathic Intractability: not intractable Status epilepticus: without status epilepticus Qualified Code(s): G40.309 - Generalized idiopathic epilepsy and epileptic syndromes, not intractable, without status epilepticus Category: Medical Code(s): G40.909 - Epilepsy, unspecified, not intractable, without status epilepticus (13) C. difficile enteritis Current visit: Yes Status: Acute Category: Medical Code(s): A04.72 - E nterocolitis due to Clostridium difficile, not specified as recurrent - Assessment and plan all Dx Assessment and Plan for all problems:: rounded with dr castelan all orders per dr armando sherman back to [facility] and continue oral vanc and repeat bmp in 5 days
== END 2020-01-23 18:35 | DRG 177 ==
LOC: ER 16:05 → 2ND 16:05 → OBSVTOIN 22:55 → 2ND 22:57
PROVIDERS: ADMIT Family Medicine; ATTEND Emergency Medicine
CPT/HCPCS: 32555; 36415; 70371; 70450; 71010; 71020; 71045; 71046; 71250; 80048; 80053; 80202; 81001; 82042; 82803; 82945; 82962; 83605; 83615; 83735; 84155; 84484; 85007; 85014; 85018; 85025; 85048; 85049; 87040; 87070; 87077; 87186; 87205; 87275; 87276; 87486; 87507; 87581; 87633; 87798; 89051; 92507; 92526; 92610; 92611; 93005; 93306; 94640; 94760; 94761; 96365; 96367; 97110; 97162; 97166; 97530; 97535; 99285; J1956; J2020; J2405; J3370